=== PATIENT | female | born 1960 | race Caucasian/White ===

== ENCOUNTER → 2017-06-03 17:28 | Outpatient (CLI) | payer MEDICARE, BC, SELFPAY ==
[2017-06-03 18:24] LABS: Basophils # 0.1 K/mm3 (0-0.2); Eosinophils # 0.1 K/mm3 (0.0-0.4); Eosinophils % 1.6 % (0.1-12.0); Hematocrit 44.5 % (37.0-47.0); Hemoglobin 14.7 g/dL (12.2-16.2); Lymphocytes # 1.9 K/mm3 (0.7-4.5); Lymphocytes % 27.1 K/mm3 (10-50); Mean Corpuscular Hemoglobin 31.2 pg (27.0-31.2); Mean Corpuscular Volume 94.3 fl (81-99); Monocytes # 0.5 K/mm3 (0.1-1.0); Monocytes % 6.7 % (1.7-9.3); Neutrophils # 4.5 K/mm3 (1.8-7.8); Neutrophils % 63.6 % (37.0-80.0); Platelet Count 219 K/mm3 (142-424); Red Blood Count 4.72 M/mm3 (4.20-5.40); Red Cell Distribution Width 13.3 % (11.5-17.5); White Blood Count 7.1 K/mm3 (4.8-10.8)
[2017-06-03 19:53] LABS: Alanine Aminotransferase 22 U/L (12-78); Albumin Level 3.1 gm/dL (3.4-5.0); Albumin/Globulin Ratio 0.9 (1.1-1.8); Alkaline Phosphatase 116 U/L (46-116); Anion Gap 11.4 mEq/L (5-15); Aspartate Amino Transferase 18 U/L (15-37); Bilirubin,Total 0.2 mg/dL (0.2-1.0); Blood Urea Nitrogen 12 mg/dL (7-18); Calcium 8.9 mg/dL (8.5-10.1); Carbon Dioxide 32 mmol/L (21.0-32.0); Chloride 103 mmol/L (98-107); Creatinine,Serum 0.88 mg/dL (0.55-1.02); Estimated Glomerular Filt Rate 66 ml/min (>60); GFR (African American) 80 ML/MIN (>60); Globulin 3.6 gm/dl (1.3-3.2); Glucose 123 mg/dL (74-106); Potassium 4.4 mmoL/L (3.5-5.1); Sodium 142 mmol/L (136-145); Thyroid Stimulating Hormone 2.45 uIU/ml (0.358-3.740); Total Protein,Serum 6.7 gm/dL (6.4-8.2)
[2017-06-07 12:39] LABS: Folate 14.4 ng/mL (>3.0); Vitamin B12 374 pg/mL (232-1245)
== END ==
PROVIDERS: Visit Provider Nurse Practitioner Family
DX: G44.329 Chronic post-traumatic headache, not intractable (principal); F39 Unspecified mood [affective] disorder; S06.0X0S Concussion without loss of consciousness, sequela; I48.91 Unspecified atrial fibrillation; Z95.0 Presence of cardiac pacemaker
CPT/HCPCS: 36415; 80053; 82607; 82746; 84443; 85025

== ENCOUNTER → 2017-08-30 14:24 | Outpatient (CLI) | payer MEDICARE, BC, SELFPAY ==
--- NOTE | 2017-08-30 14:25 | CA_ITS ---
PROCEDURE: 2-D M-mode and color Doppler study INDICATIONS FOR THE TEST: Chest pain COPD Heart Murmur Tobacco Smoking Palpitations Fatigue Syncope EdemaX HypertensionXDiabetes Mellitus Rheumatic Fever SOB BLANCO ObesityXHyperlipidemiaX Family History HD Additional History PACEMAKER,CHRONIC AF PATIENT INFORMATION HEIGHT: 62 WEIGHT:201 GENDER: Female B/P:95/59 2-D/M-MODE INTERPRETATION: 2-D MEASUREMENTS OBSERVED VALUES IN CMS Right Ventricular Dimension (RVDd) 2.3 Interventricular Septum (Thickness)(IVsd) 1.0 Left Ventricular Internal Dimensions(LVIDd) 4.8 Left Ventricular Posterior Wall (Thickness)(LVPWd) .8 Aortic Root 3.0 Aortic Cusp Separation 1.6 Left Atrial Dimensions (LAD) 3.9 2D 1. Left atrium is moderately enlarged, left ventricle is normal size, visually estimated ejection fraction 55% with no obvious regional wall motion abnormality. 2. The right atrium and right ventricle are mildly enlarged with normal contractility, there is pacemaker lead seen in the right atrium and right ventricle. 3. The aortic valve is minimally thickened and fibrosed. 4. The mitral and tricuspid valve leaflets are minimally thickened. 5. The pulmonic valve is poorly visualized. 6. No significant pericardial effusion noted. DOPPLER INTERROGATION: Doppler interrogation of the aortic, mitral and tricuspid valvular presence of moderate mitral and mild tricuspid regurgitation. Tricuspid regurgitant jet velocity is insufficient for the right ventricular systolic pressure, diastolic parameters are inconclusive. CONCLUSION: 1. Moderately enlarged left atrium, normal left ventricular size, visually estimated ejection fraction of 55% with no obvious regional wall motion abnormality, diastolic parameters are inconclusive. 2. Moderate mitral and mild tricuspid regurgitation 3. No significant pericardial effusion noted.
== END ==
PROVIDERS: PCP Emergency Medicine; Visit Provider Internal Medicine
DX: I48.91 Unspecified atrial fibrillation (principal); R00.0 Tachycardia, unspecified; I10 Essential (primary) hypertension; I25.10 Atherosclerotic heart disease of native coronary artery without angina pectoris
CPT/HCPCS: 93306

== ENCOUNTER 2017-12-29 22:07 | Inpatient (IN) ==
[2017-12-29 22:26] LABS: Microscopic, Urine URINE MICROSCOPIC (MICROSCOPIC)
[2017-12-29 22:31] LABS: Basophils # 0.1 K/mm3 (0-0.2); Basophils % 0.8 % (0.1-2.0); Eosinophils % 0.6 % (0.1-12.0); Hemoglobin 14.3 g/dL (12.2-16.2); Lymphocytes # 1.7 K/mm3 (0.7-4.5); Lymphocytes % 23.3 % (10-50); Mean Corpuscular Hemoglobin 29.6 pg (27.0-31.2); Mean Corpuscular Volume 95.3 fl (81-99); Mean Platelet Volume 8.7 fl (7.4-10.4); Monocytes # 0.6 K/mm3 (0.1-1.0); Monocytes % 8.4 % (1.7-9.3); Neutrophils # 4.8 K/mm3 (1.8-7.8); Neutrophils % 66.9 % (37.0-80.0); Platelet Count 215 K/mm3 (142-424); Red Blood Count 4.82 M/mm3 (4.20-5.40); Red Cell Distribution Width 14.7 % (11.5-17.5); White Blood Count 7.2 K/mm3 (4.8-10.8)
[2017-12-29 22:47] LABS: Alanine Aminotransferase 10 U/L (12-78); Albumin Level 2.6 gm/dL (3.4-5.0); Albumin/Globulin Ratio 0.6 (1.1-1.8); Alkaline Phosphatase 116 U/L (46-116); Anion Gap 8.7 mEq/L (5-15); Aspartate Amino Transferase 6 U/L (15-37); Bilirubin,Total 0.5 mg/dL (0.2-1.0); Blood Urea Nitrogen 12 mg/dL (7-18); Calcium 8.7 mg/dL (8.5-10.1); Carbon Dioxide 34 mmol/L (21.0-32.0); Chloride 81 mmol/L (98-107); Globulin 4.3 gm/dl (1.3-3.2); Sodium 121 mmol/L (136-145); Total Protein,Serum 6.9 gm/dL (6.4-8.2)
[2017-12-29 22:53] LABS: Appearance,Urine CLEAR (Clear); Bilirubin,Urine Negative (Negative); Blood, Urine Negative (Negative); Color,Urine YELLOW (Yellow); Glucose,Urine (UA) 3+ (Negative); Ketones,Urine Negative (Negative); Leukocyte Esterase,Urine Negative (Negative); Protein,Urine Negative (Negative); Specific Gravity, Urine <= 1.005 (1.005-1.030); Urobilinogen,Urine 0.2 EU/dl (0.2)
[2017-12-29 22:55] LABS: Bacteria,Urine 2+ /lpf
[2017-12-29 23:07] LABS: Glucose 873 mg/dL (74-106); Potassium 2.7 mmoL/L (3.5-5.1)
[2017-12-29 23:13] LABS: Acetone, Serum (Rapid) None Detected (None Detect)
--- NOTE | 2017-12-29 23:28 | Emergency Department Note ---
ED Disposition Clinical Impression: Hyperglycemia, Hypokalemia Hypotension Qualifiers: Hypotension type: unspecified hypotension type Qualified Code(s): I95.9 - Hypotension, unspecified Disposition: Still a Patient Condition on Discharge: Serious - Critical Care Critical Care Time: Yes Attestation: On 12/29/17, the high probability of a clinically significant, sudden or life threatening deterioration of the following system(s) required my full and direct attention, intervention and personal management. The time I documented below is in addition to time spent performing reported procedures but includes the following listed in this critical care notation. Total Critical Care Time: 40 Vital system(s) involved:: Circulatory Failure, Metabolic Failure My critical care processes included: Assessment & monitoring of V/S, Initial and Re-exams, Data Review/Interpretation, Coordinating Care, Medication Orders and management, Documentation Medical Decision Making - Moody Inquiry Pt receiving controlled substance: No Vital Signs: 12/29/17 22:08 12/29/17 22:34 12/29/17 23:19 Temperature 99.5 F Temperature Source Oral Pulse Rate [Right Radial] 68 80 80 Respiratory Rate 12 16 22 Blood Pressure [Right Arm] 90/59 L 85/52 L 106/70 L Blood Pressure Mean [Right Arm] 69 63 82 Blood Pressure Source [Right Arm] Automatic Cuff Automatic Cuff Automatic Cuff Blood Pressure Position [Right Arm] Sitting Sitting Sitting 02 Sat by Pulse Oximetry 95 98 97 Oxygen Delivery Method Room Air Room Air - Lab Data Lab Results 12/29/17 22:20: Urine Color Yellow, Urine Appearance Clear, Urine pH 7.0, Ur Specific [place] <= 1.005, Urine Protein Negative, Urine Glucose (UA) 3+, Urine Ketones Negative, Urine Blood Negative, Urine Nitrate Positive, Urine Bilirubin Negative, Urine Urobilinogen 0.2, Ur Leukocyte Esterase Negative, Urine WBC 3-5, Urine Bacteria 2+ 12/29/17 22:20: WBC 7.2, RBC 4.82, Hgb 14.3, Hct 46.0, MCV 95.3, MCH 29.6, MCHC 31.0 L, RDW 14.7, Plt Count 215, MPV 8.7, Neut % (Auto) 66.9, Lymph % (Auto) 23.3, [place] % (Auto) 8.4, Eos % (Auto) 0.6, Baso % (Auto) 0.8, Neut # (Auto) 4.8, Lymph # (Auto) 1.7, [place] # (Auto) 0.6, Eos # (Auto) 0.0, Baso # (Auto) 0.1 12/29/17 22:20: Sodium 121 L, Potassium 2.7 L*, Chloride 81 L, Carbon Dioxide 34 H, Anion Gap 8.7, BUN 12, Creatinine 1.50 H, Estimated Creat Clear 50, Estimated GFR 36 L, Est GFR ( Amer) 43 L, Glucose 873 H*, Calcium 8.7, Total Bilirubin 0.5, AST 6 L, ALT 10 L, Alkaline Phosphatase 116, Total Protein 6.9, Albumin 2.6 L, Globulin 4.3 H, Albumin/Globulin Ratio 0.6 L, Acetone Level None detected 12/30/17 00:08: VBG pH 7.40, VBG pCO2 56.0 H, VBG pO2 67.1 H, VBG HCO3 33.8 H, VBG Total CO2 35.5 H, VBG O2 Saturation 93.8 H, VBG Base Excess 8.9 H Result diagrams: 12/29/17 22:20 12/29/17 22:20 Orders (Tests/Meds): ED MEDICATIONS Generic Name Dose Route Start Last Admin Trade Name Freq PRN Reason Stop Dose Admin Sodium Chloride 1,000 mls @ 150 mls/hr 12/30/17 00:45 Sod Chlor 0.9% 1000ml Bag IV 01/29/18 00:44 .[id number] MARIXA Potassium Chloride/Water 100 mls @ 50 mls/hr 12/30/17 00:54 12/30/17 01:00 Potassium Chloride 20meq/100ml Ivpb IV 12/30/17 02:53 50 mls/hr ONCE ONE Administration Potassium Chloride/Water 20 meq 12/30/17 00:33 Potassium Chloride 20meq/100ml Ivpb IV 12/30/17 00:34 ONCE ONE Discontinued Medications Generic Name Dose Route Start Last Admin Trade Name Freq PRN Reason Stop Dose Admin Sodium Chloride 1,000 mls @ 999 mls/hr 12/29/17 22:30 12/29/17 22:52 Sod Chlor 0.9% 1000ml Bag IV 12/29/17 23:30 999 mls/hr .Q1H1M MARIXA Administration Insulin Human Lispro 20 unit 12/30/17 00:32 12/30/17 00:51 Humalog 100 Units/Ml 3ml Vial (Ssi) SQ 12/30/17 00:33 20 unit ONCE ONE Administration Potassium Chloride 60 meq 12/30/17 00:33 12/30/17 00:52 Klor-Con 20meq Tablet PO 12/30/17 00:34 60 meq ONCE ONE Administration ORDERS Category Date Time Status Urinalysis and Microscopic Stat Lab 12/29/17 22:20 Ordered Urine Culture Stat Micro 12/29/17 22:20 Received 12-lead EKG Request [ECG Request by /Nse] Stat Y 12/29/17 22:23 Ordered - ECG Data Tracing #1 EKG interpreted by Robert Sanchez MD: Rhythm: Ventricular paced rhythm Rate: 80 No evidence of acute ischemia or injury - Physician Consults Physician Consulted: Barry Bueno Time: 23:45 Reason -: Admission Comment/Response: Agrees to admit the patient to the hospital. We discussed the patient's clinical information, including history, exam, laboratory and radiology results and ED course. Per hospital procedure, I will write temporary bridge inpatient orders on the patient. Specific orders requested by the admitting physician: IV and oral potassium, high intensity sliding scale insulin, first dose in the emergency department 20 units of Humalog, continue IV fluids. May start insulin now, before potassium corrected, because the insulin will be administered subcutaneously and not intravenously. Fingerstick blood sugar in 2 hours. Chemistry profile in the morning. General Adult HPI - General Chief complaint: Hyper/Hypoglycemia Stated complaint: dizziness Time Seen by Provider: 12/29/17 23:28 Mode of Arrival: EMS Limitations: Physical Limitations Description of Symptoms (Recalled from ER Triage Doc. by RN): Pt reports dizziness all day, n/v yesterday. Per EMS blood glucose reading HI on glucomete. No physical deficits. Pt. ambulated to bathroom with assist. Pt. reports she felt dizzy earlier today but has not complaints at this time. - History of Present Illness HPI narrative: Sent in by ambulance from [facility] for hyperglycemia. - Related Data Home Medications Medication Instructions Recorded Confirmed apixaban 5 mg tablet 5 mg PO BID 02/18/17 12/29/17 digoxin 125 mcg tablet 125 mcg PO DAILY 02/18/17 12/29/17 duloxetine 60 mg capsule,delayed 60 mg PO DAILY 02/18/17 12/29/17 release loratadine 10 mg tablet 10 mg PO DAILY 02/18/17 12/29/17 spironolactone 25 mg tablet 25 mg PO BID 02/18/17 12/29/17 acetaminophen 500 mg tablet 500 mg PO Q4H PRN 02/19/17 12/29/17 furosemide 20 mg tablet 40 mg PO BID tab 02/19/17 12/29/17 metoprolol tartrate 100 mg tablet 200 mg PO BID tab 02/19/17 12/29/17 Nortriptyline HCl 10 mg PO DAILY 06/20/17 12/29/17 diltiazem CD 240 mg 240 mg PO DAILY 10/30/17 12/29/17 capsule,extended release 24 hr Cefdinir [Omnicef 300mg Capsule] 300 mg PO BID 12/29/17 12/29/17 Allergies Allergy/AdvReac Type Severity Reaction Status Date / Time celecoxib [From CELEBREX] Allergy Unknown Verified 12/29/17 22:15 hydrocodone [From VICODIN] Allergy Unknown Verified 12/29/17 22:15 oxycodone [OXYCODONE] Allergy Unknown Verified 12/29/17 22:15 red dye Allergy Unknown Verified 12/29/17 22:15 [From RED DYE (FOOD/DRUG)] tramadol [From ULTRAM] Allergy Unknown Verified 12/29/17 22:15 Iodinated Contrast Media - AdvReac Intermediate ITCHING Verified 12/29/17 22:15 Oral and [IODINATED CONTRAST MEDIA - ORAL AND] From RED DYE (FOOD/DRUG) Allergy Unknown Uncoded 06/03/17 15:27 [facility] History Medical History: Reports:: Atrial Fibrillation, Coronary Artery Disease, Hyperlipidemia, Hypertension, Internal Pacemaker, Migraine Denies:: Cancer, Diabetes Mellitus Type 1, Diabetes Mellitus Type 2, MRSA Other Surgeries: Yes: No Previous Surgery, Pacemaker Amputation: No Comment: knee, ankle - Social History Smoking Status: Never smoker Alcohol Intake: never Alcohol Intake Frequency:: other Substance Use Type: denies use Occupational Status: disabled Housing: assisted living facility Household Members: other - Psychiatric History Expresses thoughts of harming self/others: None Suicide Plan Description: No Plan Family Hx:: No significant family history ROS Obtained: Yes All systems reviewed & no additional complaints - Constitutional Constitutional: Denies fever(s), Reports other (Increased thirst) - ENT Ears, Nose, Mouth, and Throat: Reports dry mouth - Cardiovascular Cardiovascular: Denies chest pain - Respiratory Respiratory: No cough, No dyspnea - Gastrointestinal Gastrointestingal: Denies: abdominal pain, diarrhea, vomiting - Genitourinary Female Genitourinary: Reports urinary frequency - Neurologic Neurologic: Denies headache(s) Physical Exam - General General appearance: alert, in no apparent distress - Head Head exam: atraumatic, normocephalic - Eye Eye exam: Present: normal appearance, PERRL, EOMI - ENT ENT exam: Present: mucous membranes dry - Chest Chest inspection: Present: normal inspection, symmetric chest wall rise - Respiratory Respiratory exam: Present: normal lung sounds bilaterally. Absent: respiratory distress - Cardiovascular Cardiovascular exam: Present: regular rate, normal rhythm, normal heart sounds - Abdominal Exam Abdominal exam: Present: soft. Absent: distention, tenderness, guarding - Extremities Exam Extremities exam: Present: normal inspection - Neurological Exam Neurological exam: Present: alert, oriented X3 - Psychiatric Psychiatric exam: Present: normal affect, normal mood - Skin Skin exam: Present: warm, dry
[2017-12-30 00:09] LABS: VBG Base Excess 8.9 mmol/L (-2.4-2.3); VBG HCO3 33.8 mmol/L (23-30); VBG Oxygen Saturation 93.8 % (50-70); VBG PH 7.4 mmol/L (7.31-7.41); VBG PO2 67.1 mmol/L (28-40); VBG Total CO2 35.5 mmol/L (23-27)
[2017-12-30 06:06] LABS: Anion Gap 8.7 mEq/L (5-15)
[2017-12-30 06:20] LABS: Potassium 2.7 mmoL/L (3.5-5.1)
--- NOTE | 2017-12-30 07:54 | Pharmacy Consult Notes ---
[facility] Pharm[facility] VTE Monitoring - Patient Demographics Admission date: 12/29/17 Report Date: 12/30/17 Time: 07:54 Allergies/Adverse Reactions: Patient Allergies celecoxib [From CELEBREX] Allergy (Unknown, Verified 12/29/17 22:15) hydrocodone [From VICODIN] Allergy (Unknown, Verified 12/29/17 22:15) oxycodone [OXYCODONE] Allergy (Unknown, Verified 12/29/17 22:15) red dye [From RED DYE (FOOD/DRUG)] Allergy (Unknown, Verified 12/29/17 22:15) tramadol [From ULTRAM] Allergy (Unknown, Verified 12/29/17 22:15) Iodinated Contrast Media - Oral and [IODINATED CONTRAST MEDIA - ORAL AND] Adverse Reaction (Intermediate, Verified 12/29/17 22:15) ITCHING From RED DYE (FOOD/DRUG) Allergy (Unknown, Uncoded 06/03/17 15:27) Height: 1.57 m Weight: 81.737 kg Patient Problems: Current Active Problems Hyperglycemia (Acute) Hypokalemia (Acute) Hypotension (Acute) - VTE Risk Labs: VTE Related Lab Results Hgb 14.3 g/dL (12.2-16.2) 12/29/17 22:20 Hct 46.0 % (37.0-47.0) 12/29/17 22:20 Plt Count 215 K/mm3 (142-424) 12/29/17 22:20 BUN 10 mg/dL (7-18) 12/30/17 05:50 Creatinine 0.99 mg/dL (0.55-1.02) D 12/30/17 05:50 Estimated Creat Clear 81 mL/min (50-200) 12/30/17 05:50 VTE Score: 6 VTE Risk Level: Moderate Risk - Prophylaxis VTE Prophylaxis Ordered?: Yes Types of VTE Prophylaxis: TEDS Knee High, Pharmacological Location of Applied Device: Bilateral Lower Extremeties Pharmacologic Type: Other (ELIQUIS ORDERED) - VTE Diagnosis Confirmed Treatment or plan recommended: Continue Current Treatment
--- NOTE | 2017-12-30 13:21 | History & Physical Report ---
*Admission Date: 12/29/17 *Chief complaint: dizzy *History of present illness: this wf who reports not feeling well and dizzy at [facility] was seen in the ed -t reports dizziness all day, n/v yesterday. Per EMS blood glucose reading HI on glucometer No physical deficits. Pt. ambulated to bathroom with assist. Pt. reports she felt dizzy earlier today but has not complaints at this time. [facility] History I have reviewed the patient's past medical history: Yes Medical History: Reports:: Atrial Fibrillation, Coronary Artery Disease, Hyperlipidemia, Hypertension, Internal Pacemaker, Migraine Denies:: Cancer, Diabetes Mellitus Type 1, Diabetes Mellitus Type 2, MRSA Other Surgeries: Yes: No Previous Surgery, Pacemaker Amputation: No - *Social History Smoking Status: Never smoker Alcohol Intake: never Alcohol Intake Frequency:: other Substance Use Type: denies use Occupational Status: disabled Housing: assisted living facility Household Members: other - Psychiatric History Expresses thoughts of harming self/others: None Suicide Plan Description: No Plan *Family Hx:: No significant family history Review of Systems - Review of Systems Review of systems:: pertinent systems reviewed and negative unless documented below - Constitutional Denies fatigue - Eyes Denies bulging eyes - ENT Denies sore throat - *Cardiovascular Denies chest pain - *Respiratory Denies cough - *Gastrointestinal Denies abdominal pain - *Musculoskeletal Reports joint pain, Denies joint swelling - Integumentary/Breasts Denies rash - *Neurologic Reports dizziness, Reports weakness, Denies headache(s), Denies seizure-like activity - Psychiatric Reports anxiety Meds Home Medications Medication Instructions Recorded Confirmed Type apixaban 5 mg tablet 5 mg PO BID 02/18/17 12/29/17 History digoxin 125 mcg tablet 125 mcg PO DAILY 02/18/17 12/29/17 History loratadine 10 mg tablet 10 mg PO DAILY 02/18/17 12/29/17 History acetaminophen 500 mg tablet 500 mg PO Q4H PRN 02/19/17 12/29/17 History Nortriptyline HCl 10 mg PO DAILY 06/20/17 12/29/17 History diltiazem CD 240 mg 240 mg PO DAILY 10/30/17 12/29/17 History capsule,extended release 24 hr Duloxetine HCl [Cymbalta 30mg 60 mg PO DAILY 12/30/17 12/30/17 History capsule] Furosemide [Furosemide 40MG tAB] 40 mg PO BID 12/30/17 12/30/17 History Metoprolol Tartrate 200 mg PO BID 12/30/17 12/30/17 History Spironolactone 25 mg PO DAILY 12/30/17 12/30/17 History Allergies Allergy/AdvReac Type Severity Reaction Status Date / Time celecoxib [From CELEBREX] Allergy Unknown Verified 12/29/17 22:15 hydrocodone [From VICODIN] Allergy Unknown Verified 12/29/17 22:15 oxycodone [OXYCODONE] Allergy Unknown Verified 12/29/17 22:15 red dye Allergy Unknown Verified 12/29/17 22:15 [From RED DYE (FOOD/DRUG)] tramadol [From ULTRAM] Allergy Unknown Verified 12/29/17 22:15 Iodinated Contrast Media - AdvReac Intermediate ITCHING Verified 12/29/17 22:15 Oral and [IODINATED CONTRAST MEDIA - ORAL AND] From RED DYE (FOOD/DRUG) Allergy Unknown Uncoded 06/03/17 15:27 Exam Vital signs and Labs for Last 24 Hours: Temp Pulse Resp BP Pulse Ox 98.0 F 80 17 103/66 L 98 12/30/17 08:00 12/30/17 10:54 12/30/17 08:00 12/30/17 08:00 12/30/17 08:00 Laboratory Results - last 24 hr 12/29/17 22:14: POC Glucose > 600 H* 12/29/17 22:20: Urine Color Yellow, Urine Appearance Clear, Urine pH 7.0, Ur Specific [place] <= 1.005, Urine Protein Negative, Urine Glucose (UA) 3+, Urine Ketones Negative, Urine Blood Negative, Urine Nitrate Positive, Urine Bilirubin Negative, Urine Urobilinogen 0.2, Ur Leukocyte Esterase Negative, Urine WBC 3-5, Urine Bacteria 2+ 12/29/17 22:20: WBC 7.2, RBC 4.82, Hgb 14.3, Hct 46.0, MCV 95.3, MCH 29.6, MCHC 31.0 L, RDW 14.7, Plt Count 215, MPV 8.7, Neut % (Auto) 66.9, Lymph % (Auto) 23.3, [place] % (Auto) 8.4, Eos % (Auto) 0.6, Baso % (Auto) 0.8, Neut # (Auto) 4.8, Lymph # (Auto) 1.7, [place] # (Auto) 0.6, Eos # (Auto) 0.0, Baso # (Auto) 0.1 12/29/17 22:20: Sodium 121 L, Potassium 2.7 L*, Chloride 81 L, Carbon Dioxide 34 H, Anion Gap 8.7, BUN 12, Creatinine 1.50 H, Estimated Creat Clear 50, Estimated GFR 36 L, Est GFR ( Amer) 43 L, Glucose 873 H*, Calcium 8.7, Total Bilirubin 0.5, AST 6 L, ALT 10 L, Alkaline Phosphatase 116, Total Protein 6.9, Albumin 2.6 L, Globulin 4.3 H, Albumin/Globulin Ratio 0.6 L, Acetone Level None detected 12/30/17 00:08: VBG pH 7.40, VBG pCO2 56.0 H, VBG pO2 67.1 H, VBG HCO3 33.8 H, VBG Total CO2 35.5 H, VBG O2 Saturation 93.8 H, VBG Base Excess 8.9 H 12/30/17 01:35: Lactate 2.2 H 12/30/17 01:38: POC Glucose 493 H* 12/30/17 04:04: POC Glucose 181 H 12/30/17 05:50: Sodium 136, Potassium 2.7 L*, Chloride 97 L, Carbon Dioxide 33 H , Anion Gap 8.7, BUN 10, Creatinine 0.99 D, Estimated Creat Clear 81, Estimated GFR 58 L, Est GFR ( Amer) 70 D, Glucose 147 H D, Calcium 8.0 L 12/30/17 05:50: Lactate 2.3 H 12/30/17 06:11: POC Glucose 132 H 12/30/17 07:46: Lactate 1.5 I & O for Last 24 hours: Intake & Output 12/28/17 12/29/17 12/30/17 12/31/17 11:59 11:59 11:59 11:59 Intake Total 679 / 679 240 / 240 Output Total 600 / 600 Balance 79 / 79 240 / 240 Weight 180 lb 3.2 oz Microbiology Reports for the Last 24 Hours: Microbiology 12/29/17 22:20 Urine,Clean Catch Urine Culture - Preliminary Gram Negative Rods - Constitutional no acute distress - *Routine HEENT Exam Head: Present: normocephalic, scalp tenderness Eye: Present: PERRL ENT: Present: mucous membranes dry - *Routine Neck Exam Absent: JVD - *Routine Respiratory Exam Present: CTA bilaterally - *Routine Cardiovascular Exam Present: RRR, murmur, S4 - *Routine Abdominal Exam Present: soft - *Routine Extremities Exam Present: edema. Absent: calf tenderness - *Routine Skin Exam Present: intact - *Routine Neurological Exam Present: alert, oriented X3, CN II-XII intact - Routine Psychiatric Exam Present: normal affect Assessment and Plan (1) UTI (urinary tract infection) Current visit: Yes Status: Acute Category: Medical Code(s): N39.0 - Urinary tract infection, site not specified (2) Hypokalemia Current visit: Yes Status: Acute Category: Medical Code(s): E87.6 - Hypokalemia
--- NOTE | 2017-12-31 09:12 | Discharge Summary ---
Addendum entered and electronically signed by Heydi Scott APRN 12/31/17 09:27: recheck bmp on saturday Original Note: General - General Admission date:: 12/30/17 Discharge date: 12/31/17 HPI HPI: this wf who reports not feeling well and [facility] at shelter was seen in the ed -t reports dizziness all day, n/v yesterday. Per EMS blood glucose reading HI on glucometer No physical deficits. Pt. ambulated to bathroom with assist. Pt. reports she felt dizzy earlier today but has not complaints at this time. Hospital Course Hospital Course: chest x ray:IMPRESSION: Nothing definitely acute. No significant change since 06/20/2017. Pacemaker. ESBL positive E coli in urine We will discharge back to the personal residential today with IM Invanz times 9 days recheck potassium in 2 days [facility] for IM Invanz. Will check hemoglobin A1c while at personal residential. Objective Vital signs: Temp Pulse Resp BP Pulse Ox 97.4 F L 88 16 101/54 L 97 12/31/17 08:49 12/31/17 08:49 12/31/17 08:49 12/31/17 08:49 12/31/17 08:49 no acute distress - *Routine HEENT Exam Head: Present: normocephalic Eye: Present: PERRL ENT: Present: mucous membranes moist - *Routine Neck Exam Present: full ROM - *Routine Respiratory Exam Present: CTA bilaterally - *Routine Cardiovascular Exam Present: irregular rhythm - *Routine Abdominal Exam Present: soft, normoactive bowel sounds - *Routine Extremities Exam Present: full ROM - *Routine Skin Exam Present: intact - *Routine Neurological Exam Present: alert, oriented X3 - Routine Psychiatric Exam Present: normal affect, normal thought process Results Labs on day of discharge: Labs from last 24 hours 12/31/17 12/30/17 12/30/17 05:18 21:19 17:23 POC Glucose 243 H 339 H* 300 H 12/29/17 22:14 POC Glucose > 600 H* - Additional Comments Rounded with Dr. Bueno all orders per Ximena Increase fluids, water and not soda or tea. Can drink cranberry juice or cranberry extract. White front to back Wear cotton underwear Start antibiotics immediately and make sure you take the full course although you may start to see improvement over the next 48 hours. You can eat yogurt or Be sure to follow-up anytime for new or worsening symptoms DS: Diagnosis - Discharge Diagnosis (1) UTI (urinary tract infection) Status: Acute (2) Hypokalemia Status: Acute (3) Infection due to ESBL-producing Escherichia coli Status: Acute Discharge Plan - Patient Discharge Instructions ACTIVITY: Continue current activity DIET: continue same diet - Follow up Plan Follow up with: Didier Bueno MD [Primary Care Provider] - 1 week Disposition: Home, Self-[facility] Medications: Home Medications Medication Instructions Recorded Confirmed Type apixaban 5 mg tablet 5 mg PO BID 02/18/17 12/29/17 History digoxin 125 mcg tablet 125 mcg PO DAILY 02/18/17 12/29/17 History loratadine 10 mg tablet 10 mg PO DAILY 02/18/17 12/29/17 History acetaminophen 500 mg tablet 500 mg PO Q4H PRN 02/19/17 12/29/17 History Nortriptyline HCl 10 mg PO DAILY 06/20/17 12/29/17 History diltiazem CD 240 mg 240 mg PO DAILY 10/30/17 12/29/17 History capsule,extended release 24 hr Duloxetine HCl [Cymbalta 30mg 60 mg PO DAILY 12/30/17 12/30/17 History capsule] Furosemide [Furosemide 40MG tAB] 40 mg PO BID 12/30/17 12/30/17 History Metoprolol Tartrate 200 mg PO BID 12/30/17 12/30/17 History Spironolactone 25 mg PO DAILY 12/30/17 12/30/17 History Prescriptions/Medication Reconciliation: New Ertapenem Sodium [Invanz 1gm Vial] 1 gm IJ DAILY 9 Days #9 vial Continue digoxin 125 mcg tablet 125 mcg PO DAILY apixaban 5 mg tablet 5 mg PO BID loratadine 10 mg tablet 10 mg PO DAILY acetaminophen 500 mg tablet 500 mg PO Q4H PRN PRN Reason: pain diltiazem CD 240 mg capsule,extended release 24 hr 240 mg PO DAILY Spironolactone 25 mg PO DAILY Metoprolol Tartrate 200 mg PO BID Furosemide [Furosemide 40MG tAB] 40 mg PO BID Duloxetine HCl [Cymbalta 30mg capsule] 60 mg PO DAILY Nortriptyline HCl 10 mg PO DAILY
[2017-12-31 09:15] LABS: Basophils # 0.1 K/mm3 (0-0.2); Basophils % 0.8 % (0.1-2.0); Eosinophils # 0.1 K/mm3 (0.0-0.4); Eosinophils % 1.6 % (0.1-12.0); Hematocrit 39.3 % (37.0-47.0); Hemoglobin 12.6 g/dL (12.2-16.2); Lymphocytes # 1.9 K/mm3 (0.7-4.5); Lymphocytes % 27.3 % (10-50); Mean Corpuscular Hemoglobin 29.6 pg (27.0-31.2); Mean Corpuscular Volume 92.5 fl (81-99); Monocytes # 0.5 K/mm3 (0.1-1.0); Monocytes % 6.6 % (1.7-9.3); Neutrophils # 4.5 K/mm3 (1.8-7.8); Neutrophils % 63.8 % (37.0-80.0); Platelet Count 188 K/mm3 (142-424); Red Blood Count 4.24 M/mm3 (4.20-5.40); Red Cell Distribution Width 15.3 % (11.5-17.5); White Blood Count 7.1 K/mm3 (4.8-10.8)
[2017-12-31 09:17] LABS: Anion Gap 8.9 mEq/L (5-15); Calcium 7.7 mg/dL (8.5-10.1)
[2017-12-31 09:19] LABS: Potassium 2.9 mmoL/L (3.5-5.1)
== END 2017-12-31 14:57 | disposition home or self-care (01) ==
LOC: ICU 22:07 → ER 22:07 → OBSVTOIN 12-30 01:20 → ICU 12-30 01:22
PROVIDERS: ADMIT Family Medicine; ATTEND Emergency Medicine

== ENCOUNTER → 2018-08-04 09:55 | Outpatient (CLI) | payer MEDICARE, BC, SELFPAY ==
--- NOTE | 2018-08-04 09:56 | US_ITS ---
US gallbladder HISTORY: ITS.REASON: gallstones ORDERING PHYSICIAN: Juaquin Perkins MD PATIENT AGE: 58 years Comparison: None FINDINGS: Visualized portions of the pancreas and IVC appear normal. Portal vein is patent., Common bile duct is normal measuring 3.7 mm. PANCREAS: Unremarkable. No obvious mass or abnormal fluid collection. No ductal dilatation LIVER: No focal liver lesions demonstrated. Homogeneous echogenicity. No intrahepatic biliary ductal dilatation evident RIGHT KIDNEY: Unremarkable. Normal size and echogenicity. No hydronephrosis GALLBLADDER: There are numerous shadowing echogenic foci in the lumen of the gallbladder. One of the larger foci measures at least 1.9 cm. There is no pericholecystic fluid. IMPRESSION: Uncomplicated cholelithiasis.
== END ==
PROVIDERS: PCP Emergency Medicine; Visit Provider Surgery
DX: K82.9 Disease of gallbladder, unspecified (principal)
CPT/HCPCS: 76705

== ENCOUNTER → 2018-10-27 14:19 | Outpatient (CLI) | payer MEDICARE, BC, SELFPAY ==
--- NOTE | 2018-10-27 14:27 | XR_ITS ---
PROCEDURE: XR KNEE RT 4V CLINICAL INDICATION: 4 v weightbearing Pain, right knee pain COMPARISON: No exams were available for comparison FINDINGS: Severe osteoarthritic changes are present involving all 3 compartments with loss of joint space, osteosclerosis, and osteophyte formation. This is worse at the lateral compartment and patellofemoral joint. There Alisa a large osteophyte projecting off of the posterior aspect of the medial femoral condyle. This could even be related to large osteo chondroma. This measures approximately 3.8 cm AP and 4 cm cephalad caudad. IMPRESSION: Severe osteoarthritis worse at the lateral compartment and patellofemoral joint. Large osteophyte versus osteo chondroma at the posterior aspect of the medial femoral condyle Dictated by: Emiliano Medellin MD 10/27/2018 15:41 Electronically signed by Emiliano Medellin MD in [place] 10/27/2018 15:41
== END ==
PROVIDERS: PCP Emergency Medicine; Visit Provider Orthopaedic Surgery
DX: M25.561 Pain in right knee (principal)
CPT/HCPCS: 73564

== ENCOUNTER → 2018-10-31 11:20 | Outpatient (CLI) | payer MEDICARE, BC, SELFPAY ==
--- NOTE | 2018-10-31 11:21 | CA_ITS ---
APPROVED REPORT EXAM: Comprehensive 2D, Doppler, and color-flow Echocardiogram Principal Architect: Adrianna Ortiz RVT Ht: 5 ft 2 in Wt: 193lbs BSA: 1.88 BP: 100/67 mmHg Indications: Shortness of Breath, Atrial Fibrillation (chronic), CAD, Hyperlipidemia, Hypertension/HDD,Pre-op clearance 2D Dimensions IVSd 0.70 cm F: 0.6-1.0 LVEF (Visual) 52.90 % PWd 1.00 cm F: 0.6 - 1.0 LVDd 4.80 cm F: 3.9 - 5.3 LVDs 3.50 cm F: 2.2 - 3.5 LVOT 1.80 cm (M/F) 1.5-2.5 M-Mode Dimensions LA Diam 4.80 cm (1.9-4.0) LVDd 5.30 cm (3.5-5.7) Ao Diam 2.80 cm (2.0-3.7) LVDs 3.70 cm (3.5-5.7) AV Cusp 1.90 cm (1.5-2.6) IVSd 0.60 cm (0.6-1.1) PWd 1.00 cm (0.6-1.1) EF (Teich) 57.00% FS 30.20% EDV (Teich) 135.00 mL ESV (Teich) 58.10 mL LV Diastology E/A Ratio 1.5 MED E' 7.02 (< 7 cm/sec) E'/MED E' Ratio 16.40 (>14) LAT E' 7.21 (<10 cm/sec) E/LAT E' Ratio 16.00 (>14) Aortic Valve AoV Peak Pradip. 111.00 (50-130 cm/s) AI PHT 469.00 ms AO Peak GR. 5.00 mmHg Mitral Valve MV E Max Pradip. 115.00 (40-130 cm/s) MV A Velocity 75.50 (40-130 cm/s) E/A Ratio 1.50 Pulmonary Valve PA Accel Time 141.00 (>120 msec) Tricuspid Valve TR P. Velocity 250.00 cm/s Left Ventricle Left atrium is moderately enlarged, left ventricle is normal size, mild concentric left ventricular hypertrophy, visually estimated ejection fraction 55% with no regional wall motion abnormality, grade 1 diastolic dysfunction seen with tissue Doppler evidence of raise left atrial pressure. Right Ventricle Right atrium and right ventricle mildly enlarged with normal contractility. Aortic Valve Aortic valve is thickened and calcified leaflet continue to display mobility, there is no aortic stenosis, there is mild aortic insufficiency. Mitral Valve Mitral valve leaflets are minimally thickened, there is no mitral stenosis, there is mild mitral regurgitation. Tricuspid Valve Tricuspid valve is grossly normal, there is mild tricuspid regurgitation. Tricuspid regurgitation jet velocity is inadequate for calculation of the right ventricular systolic pressure, inferior vena cava is normal size with normal inspiratory collapse. Pulmonic Valve Pulmonic valve is poorly visualized. Great Vessels Aortic root is normal size. Pericardium No significant pericardial effusion noted. Conclusion 1. Enlarged left atrium, normal left ventricular size, mild concentric left ventricular hypertrophy, visually estimated ejection fraction 55% with no regional wall motion abnormality. Diastolic parameters are inconclusive. 2. Mild aortic, mild mitral and tricuspid regurgitation. 3. No significant pericardial effusion noted. Electronically signed by : Tano Shannon, 10/31/2018 14:31:13
== END ==
PROVIDERS: PCP Emergency Medicine; Visit Provider Urology
DX: Z01.818 Encounter for other preprocedural examination; R07.9 Chest pain, unspecified; E78.5 Hyperlipidemia, unspecified; I11.9 Hypertensive heart disease without heart failure; I25.10 Atherosclerotic heart disease of native coronary artery without angina pectoris; I48.91 Unspecified atrial fibrillation; I48.92 Unspecified atrial flutter; R60.0 Localized edema; Z95.0 Presence of cardiac pacemaker
CPT/HCPCS: 93306

== ENCOUNTER → 2019-01-30 08:55 | Outpatient (CLI) | payer MEDICARE, BC, SELFPAY ==
--- NOTE | 2019-01-30 09:03 | MM_ITS ---
PROCEDURE: MM DIG SCREENING MAMM BI W/CAD CLINICAL INDICATION: screening COMPARISON: MM DIGITAL IMAGE BREAST SPECIMEN from 02/08/2011 MM MAMMO DIGITAL DIAGNOSTIC W CAD BILAT from 08/29/2011 MM MAMMO DIGITAL DIAGNOSTIC W CAD BILAT from 09/10/2012 TECHNIQUE: Standard CC and MLO images were obtained. R2 CAD reviewed. FINDINGS: The breasts are composed primarily of fat with minimal scattered fibroglandular densities throughout each breast. There has been some fatty involution of the breast since the previous studies in 2012. There is minimal arterial calcification right breast. There is no suspicious lesion and no suspicious microcalcifications. IMPRESSION: Fibrofatty parenchyma with no suspicious lesions seen BI-RAD Category: 2 Benign Finding(s) FOLLOW-UP: 1YR 1 Year Follow-up (A letter has been sent to the patient regarding results of the study.) Dictated by: Dr. Mirza Merlos MD 02/08/2019 10:[address] Mirza Merlos MD in [place] 02/08/2019 10:43
== END ==
PROVIDERS: PCP Emergency Medicine; Visit Provider Emergency Medicine
DX: Z12.31 Encounter for screening mammogram for malignant neoplasm of breast (principal)
CPT/HCPCS: 77067

== ENCOUNTER → 2019-03-02 07:31 | Outpatient (CLI) | payer MEDICARE, BC, SELFPAY ==
--- NOTE | 2019-03-02 | CA_ITS ---
APPROVED REPORT Exam: Pharmacologic Technologist: Tona Perez, Ht: 5 ft 2 in Wt: 185 lbs BSA: 1.85 m2 HR: 70 bpm BP: 113/74 mmHg Rhythm: Sinus with RBBB Indications: Chest pain/SOB Medical History Medications: Metformin,,,,, Lasix,,,,, SpirOLACTONE,,,,, DulOXETINE,,,,, Nortriptylin,,,,, DilTiazem,,,,, Loperamide,,,,, Oxcarbazepine,,,,, Metoprol,,,,, Allergies: Celebrex, Codone, Iodine Cardiac Risk Factors: HTN, Hyperlipidemia, Diabetes (insulin), FHX of CAD Stress Test Details Test: LEXISCAN HR Resting HR: 70 bpm Max Heart Rate (APMHR): 161 bpm Max HR Achieved: 76 bpm Target HR (85% APMHR): 136 bpm % of APMHR: 47 Recovery HR: 70 bpm BP Resting BP: 113/74 mmHg Max BP: 128/67 mmHg Recovery BP: 119.0/67.0 mmHg ECG Resting ECG: SInus rhythm with nonspecific ST-T changes. Clinical Exercise duration: 04:00 min Highest Stage Achieved: Stress ECG Conclusion Lexiscan portion completed. No complaints at all noted. No ectopy. Less than 1.5mm ST Depression. Images to follow. Test Summary REST 02:08 . . 70 . 113/ 74 . . Stage 1 01:00 . . 70 . . . . Stage 2 01:00 . . 74 . 104/ 63 . . Stage 3 01:00 . . 70 . . . . Stage 4 01:00 . . 70 . 122/ 66 . Stop exercise at 04:00 RECOVERY 01:00 . . 70 . 119/ 64 . . RECOVERY 02:00 . . 71 . 119/ 67 . . RECOVERY 03:00 . . 72 . 123/ 73 . . RECOVERY 04:00 . . 71 . 128/ 67 . . RECOVERY 04:03 . . 71 . 128/ 67 . . Electronically signed by : Tano Shannon, 03/02/2019 19:24:43
--- NOTE | 2019-03-02 07:31 | NM_ITS ---
APPROVED REPORT Exam: Nuclear Stress Test Indication: Chest pain, SOB, HTN, CAD, CHF, HTN, DM, High cholesterol, Family history Patient Location: Outpatient Stress [place] Tech:Tessa Blanco, ARRT, RT (R)(N) Ht: 5 ft 2 in Wt: 185 lbs Bra Size: 36B HR: 70 bpm BP: 113/74 mmHg BSA: 1.85 m2 BMI: 33.8 History: Chest pain, SOB, HTN, CAD, CHF, HTN, DM, High cholesterol, Family history Procedure: Patient received a 0.4 mg of intravenous Lexiscan, resting heart rate 70 bpm, resting blood pressure 113/74 mmHg, with Lexiscan maximum heart rate achived was 74 bpm which is Less than 85 % of the maximum predicted heart rate and blood pressure was 121/48 mmHg. With Lexiscan, patient denied any complaint of chest pain. Electrocardiogram Resting electrocardiogram showed sinus rhythm nonspecific ST-T changes. With Lexiscan there is additional millimeter ST segment depression noted from the baseline EKG. The EKG portion of the Lexiscan sestamibi is nondiagnostic. Cardiac Stress and Resting SPECT Images: Cardiac Stress and Resting SPECT images were obtained using technetium 99m Myoview 31.3 mCi stress and 10.52 mCi at rest. Gated SPECT with analysis of segmental wall motion and calculation of the ejection fraction also done. Cardiac stress and resting SPECT images show uniform myocardial activity without segmental perfusion abnormality, computer derived ejection fraction is over 65% with no regional wall motion abnormality, right ventricle is normal size and contractility. Conclusion: 1. The EKG portion of the Lexiscan Myoview is nondiagnostic. 2. No scintigraphic evidence of reversible ischemia seen, computer derived ejection fraction is over 65% with no regional wall motion abnormality, right ventricle is normal size and contractility. 3. Normal Lexiscan Myoview study. Electronically signed by : Tano Shannon, 03/02/2019 19:26:42
--- NOTE | 2019-03-02 10:15 | HMH.ITSHM ---
Current Home Medications as stated by this patient Jaci Steiner or customer engagement representative. []METFORMIN GUAIFENESIN DULOXETINE DILTIAZEM SPIRONOLACTONE OXCARBAZEPINE NOTRIPTYLINE METOPROLOL LOPERAMIDE FUROSEMIDE
== END ==
PROVIDERS: PCP Emergency Medicine; Visit Provider Internal Medicine Cardiovascular Disease
DX: E78.5 Hyperlipidemia, unspecified (principal); I11.9 Hypertensive heart disease without heart failure; I20.9 Angina pectoris, unspecified; I48.91 Unspecified atrial fibrillation; R06.00 Dyspnea, unspecified; R07.9 Chest pain, unspecified; Z01.810 Encounter for preprocedural cardiovascular examination; Z95.0 Presence of cardiac pacemaker
CPT/HCPCS: 78452; 93017; A9502; J2785

== ENCOUNTER → 2019-03-24 10:36 | Outpatient (CLI) | payer MEDICARE, BC, SELFPAY | PROVIDERS: Visit Provider Orthopaedic Surgery | DX: S81.802A Unspecified open wound, left lower leg, initial encounter (principal) | CPT/HCPCS: 87070; 87077; 87186; 87205 ==

== ENCOUNTER → 2019-04-03 14:36 | Outpatient (CLI) | payer MEDICARE, BC, SELFPAY ==
[2019-04-03 15:41] LABS: Basophils # 0.1 K/mm3 (0-0.2); Eosinophils # 0.2 K/mm3 (0.0-0.4); Eosinophils % 2.1 % (0.1-12.0); Hematocrit 34.7 % (37.0-47.0); Hemoglobin 11.3 g/dL (12.2-16.2); Lymphocytes # 1.5 K/mm3 (0.7-4.5); Mean Corpuscular HGB Conc 32.5 g/dL (31.8-35.4); Mean Corpuscular Hemoglobin 28.8 pg (27.0-31.2); Mean Corpuscular Volume 88.5 fl (81-99); Mean Platelet Volume 8.7 fl (7.4-10.4); Monocytes # 0.5 K/mm3 (0.1-1.0); Monocytes % 6.1 % (1.7-9.3); Neutrophils # 5.3 K/mm3 (1.8-7.8); Neutrophils % 70.7 % (37.0-80.0); Platelet Count 233 K/mm3 (142-424); Red Blood Count 3.91 M/mm3 (4.20-5.40); Red Cell Distribution Width 14.3 % (11.5-17.5); White Blood Count 7.5 K/mm3 (4.8-10.8)
[2019-04-03 17:50] LABS: Chloride 101 mmol/L (98-107); Potassium 4.3 mmoL/L (3.5-5.1); Sodium 138 mmol/L (136-145)
[2019-04-03 17:52] LABS: Blood Urea Nitrogen 14 mg/dl (7-17); Estimated Glomerular Filt Rate 73 ml/min (>60); GFR (African American) 89 ML/MIN (>60)
[2019-04-03 17:53] LABS: Alanine Aminotransferase 10 U/L (12-78); Albumin Level 3.4 g/dl (3.5-5.0); Albumin/Globulin Ratio 1.3 (1.1-1.8); Alkaline Phosphatase 82 U/L (38-126); Anion Gap 10.3 mEq/L (5-15); Aspartate Amino Transferase 15 U/L (14-36); Calcium 8.7 mg/dl (8.4-10.2); Carbon Dioxide 31 mmol/L (22.0-30.0); Globulin 2.6 g/dL (1.3-3.2); Glucose 143 mg/dl (74-100)
[2019-04-03 17:54] LABS: Bilirubin,Total 0.1 mg/dl (0.2-1.3)
== END ==
PROVIDERS: Visit Provider Surgery
DX: R07.9 Chest pain, unspecified (principal); K80.20 Calculus of gallbladder without cholecystitis without obstruction
CPT/HCPCS: 36415; 80053; 85025

== ENCOUNTER 2019-04-14 10:00 | Outpatient (RCR) | payer MEDICARE, BC, SELFPAY ==
--- NOTE | 2018-10-30 14:55 | HMH.PTOPWND ---
Rehab Outpt Wound Evaluation Rehab OP Wound Evaluation Start: 10/30/18 14:37 Freq: Status: Active Protocol: Document 10/30/18 14:49 PANTERA (Rec: 10/30/18 14:55 PHORGILBERT [id number]) Electronically Signed By Pepe Dodgee, PT 10/30/18 14:49 Subjective/History History History Pt is 58 yowf who presents with c/o LE edema, right > left, x several years with insidious onset of symptoms. She is a poor historian, but does c/o pain and tenderness throughout the right lower leg and knee. She had X-rays performed which show severe OA of the right knee and she reports hx of right knee arthroscopy and left ankle ORIF in the past. She also has pacemaker and DM-II. Subjective Subjective Pt c/o 5/10 pain in the right LE at rest. Lymphedema Eval Classification of Lymphedema Secondary Lymphedema Yes Stemmer's sign Stemmer's Sign yes Stage of Lymphedema Lymphedema stages Stage II (Pitting edema, increased fibrosis w/ decreased pitting) Skin Changes Dry Skin Yes Skin Folds Yes Hyperkeratosis Yes Redness Yes Discoloration of Skin Yes Other Changes Yes Pain Scale Pain Scale (0-10) 5 Affected Extremities Areas Affected by Lymphedema/Edema Right Lower Extremity,Left Lower Extremity Manual Lymphatic Drainage Treatment Area MLD Treatment Area Right Lower Extremity,Left Lower Extremity Wound Problems/Impairments Impairments Problems/Impairmments Palpation Tenderness,Impaired Endurance,Impaired Gait Pattern,Impaired Walking, Impaired Standing,Impaired Recreational Activities, Increased Edema,Lymphedema Present,Subjective C/O Pain, Impaired Self Care/Self Management Prognosis Rehab Potential Fair Clinical Impression Consistent with Diagnosis Yes Short Term Goals Number of Weeks 4 Decreased Palpation Tenderness Yes: to min Increase Ability to Stand Yes Decrease Subjective C/O Pain
--- NOTE | 2018-12-02 14:44 | HMH.RHREAS ---
Rehab Reassessment Rehab OP Re-assessment Start: 12/02/18 14:38 Freq: Status: Active Protocol: Document 12/02/18 14:40 PANTERA (Rec: 12/02/18 14:44 PANTERA [id number]) Electronically Signed By Pepe Fuller, PT 12/02/18 14:40 Rehab Re-assessment Subjective Subjective Pt presents today with anterior right chaparro hematoma with a small central wound. She states, I bumped in to something the other day and bruised it, then it cracked open a little. Objective Objective Notes Right LE edema remains increased this date with continued 2+ pitting and fibrotic tissue quaity, worse in the lower right leg. Assessment Progress Assessment Slower Than Expected Assessment Notes New onset hematoma with small wound have likely increased the right LE edema at this time and slowed the progress that was being made previously . Patient goals met none Goals Not Met ST,2,3,4,5 LT,2,3, 4,5,6 Revised Goals none Plan Plan Continue per intial POC Frequency of Therapy 2x/wk Duration of therapy 8 wks Time and Billing Re-Eval Time 15 Re-Eval Billing Units 1 PHYSICIAN CERTIFICATION: I certify the specified therapy services for Jaci Steiner are required, authorized, and reviewed every 30 days.
--- NOTE | 2019-01-23 10:34 | HMH.RHREAS ---
Rehab Reassessment Rehab OP Re-assessment Start: 12/02/18 14:38 Freq: Status: Active Protocol: Document 01/23/19 10:27 PANTERA (Rec: 01/23/19 10:33 PANTERA [id number]) Electronically Signed By Pepe Fuller, PT 01/23/19 10:27 Rehab Re-assessment Subjective Subjective Pt reports feeling some better in the legs, less heaviness. Objective Objective Notes B LE 2+ pitting edema remains present. Right chaparro wound with full granulation tissue and decreased depth, No tunnelling noted now. Assessment Progress Assessment Progressing as Expected Assessment Notes Pt with improved edema overall , being fot for lymphedema pumps which will considerably help going forward. Improving ambulation. Wound healing very well. Patient goals met ST,2,3,4,5 Goals Not Met LT,2,3,4,5,6 Revised Goals none Plan Plan Continue per intial POC Frequency of Therapy 2x/wk Duration of therapy 8 wks Time and Billing Re-Eval Time 15 Re-Eval Billing Units 1 PHYSICIAN CERTIFICATION: I certify the specified therapy services for Jaci Steiner are required, authorized, and reviewed every 30 days.
== END 2019-04-14 10:05 | disposition home or self-care (01) ==
LOC: PT 10:00
PROVIDERS: PCP Emergency Medicine; Visit Provider Orthopaedic Surgery
DX: I89.0 Lymphedema, not elsewhere classified (principal)
CPT/HCPCS: 97140; 97162; 97164; 97760

== ENCOUNTER 2019-06-16 09:00 | Outpatient (RCR) | payer MEDICARE, BC, SELFPAY ==
--- NOTE | 2019-04-28 13:26 | HMH.PTOPWND ---
Rehab Outpt Wound Evaluation Rehab OP Wound Evaluation Start: 04/28/19 13:18 Freq: Status: Active Protocol: Document 04/28/19 13:18 PANTERA (Rec: 04/28/19 13:26 PHORNE [id number]) Electronically Signed By Pepe Fuller, PT 04/28/19 13:18 Subjective/History History History Pt is 59 yowf who presents with c/o B LE edema for many years, R > L. She also has recent hx of R anterior chaparro hematoma with open wound which has healed fully, but now with dermatitis vs cellulitis in the same area. She reports no c/o pain at this time, but she does have increased pain with edema intermittently. Subjective Subjective Currently 0/10 pain, at worst 3/10. She does c/o dry, itchy skin. Lymphedema Eval Classification of Lymphedema Secondary Lymphedema Yes Stemmer's sign Stemmer's Sign yes Stage of Lymphedema Lymphedema stages Stage II (Pitting edema, increased fibrosis w/ decreased pitting) Skin Changes Dry Skin Yes Skin Folds Yes Redness Yes Wounds Yes Brittle Uneven Nails Yes Discoloration of Skin Yes Other Changes Yes Pain Scale Pain Scale (0-10) 3 Affected Extremities Areas Affected by Lymphedema/Edema Right Lower Extremity,Left Lower Extremity Manual Lymphatic Drainage Treatment Area MLD Treatment Area Right Lower Extremity,Left Lower Extremity Wound Problems/Impairments Impairments Problems/Impairmments Palpation Tenderness,Impaired Gait Pattern,Impaired Walking, Impaired Standing,Increased Edema,Lymphedema Present,Wound Care Needs,Subjective C/O Pain,Impaired Self Care/Self Management Prognosis Rehab Potential Fair Clinical Impression Consistent with Diagnosis Yes Short Term Goals Number of Weeks 4 Decreased Palpation Tenderness Yes: to min Decrease Subjective C/O Pain Yes: 2/10 Patient to Understand Lymphedema Yes Treatment and Exercises Decrease Girth Measurments by (cm) Yes: by 10 cm Penitentiary Goals Number of Weeks 8 Decreased Pa
--- NOTE | 2019-05-21 10:56 | HMH.RHREAS ---
Rehab Reassessment Rehab OP Re-assessment Start: 05/21/19 10:48 Freq: Status: Active Protocol: Document 05/21/19 10:49 PANTERA (Rec: 05/21/19 10:56 PANTERA [id number]) Electronically Signed By Pepe Fuller, PT 05/21/19 10:49 Rehab Re-assessment Subjective Subjective Pt reports she feels better overall, but continues to have some tenderness and pain in B LE, R > L. Objective Objective Notes R LE with continued appearnce of cellulitis with increased redness over anterior chaparro and multiple small red aeas of irritation around the circumference of the R lower leg. Assessment Progress Assessment Progressing as Expected Assessment Notes Pt has shown some decrease in edema, but continues to need monitoring for cellulitis. Patient goals met ST,2,3,4 Goals Not Met LT,2,3,4,5,6 Revised Goals none Plan Plan Continue per initial POC. Frequency of Therapy 2 x/wk Duration of therapy 8 wks. Time and Billing Re-Eval Time 15 Re-Eval Billing Units 1 PHYSICIAN CERTIFICATION: I certify the specified therapy services for Jaci Steiner are required, authorized, and reviewed every 30 days.
== END 2019-06-16 09:05 | disposition home or self-care (01) ==
LOC: PT 09:00
PROVIDERS: PCP Emergency Medicine; Visit Provider Emergency Medicine
DX: I89.0 Lymphedema, not elsewhere classified (principal)
CPT/HCPCS: 29580; 97140; 97162; 97164; 97597

== ENCOUNTER 2019-08-28 14:42 | Emergency (ER) | payer MEDICARE, BC, SELFPAY ==
[2019-08-28 14:43] VITALS: BP 123/53; PULSE 80; RESP 16; TEMP 37.3; O2SAT 98; BMI 34.7
--- NOTE | 2019-08-28 14:50 | XR_ITS ---
PROCEDURE: XR CHEST PORTABLE CLINICAL INDICATION: pain Chest pain COMPARISON: XR CHEST PORTABLE from 09/29/2018 XR CHEST 2V from 02/05/2019 XR CHEST PORTABLE from 04/11/2019 FINDINGS: Borderline cardiomegaly without failure. Bipolar pacemaker is present right subclavian approach. Medium-sized hiatal hernia. Patchy density is present in the left CP angle and may be due to an area of pleural thickening versus patchy infiltrate. Other findings:None. IMPRESSION: Cardiomegaly with hiatal hernia and patchy infiltrate versus pleural thickening/effusion left lung base laterally Dictated by: Emiliano Medellin MD 08/28/2019 16:07 Electronically signed by Emiliano Medellin MD in [place] 08/28/2019 16:07
--- NOTE | 2019-08-28 14:52 | ECG_ITS ---
APPROVED REPORT Exam: Resting ECG HR:86 bpm ECG Measurements Heart Rate 86 AXES QRSd 114 QRS 139 QT 240 T -73 QTc 287 <Conclusion> Demand pacemaker, interpretation is based on intrinsic rhythm Atrial fibrillation Abnormal ECG Electronically signed by : Atif Peres, 08/28/2019 20:17:33
[2019-08-28 14:58] LABS: Basophils # 0.1 K/mm3 (0-0.2); Basophils % 1.2 % (0.1-2.0); Chloride 99 mmol/L (98-107); Eosinophils # 0.2 K/mm3 (0.0-0.4); Eosinophils % 2.3 % (0.1-12.0); Hematocrit 36.9 % (37.0-47.0); Hemoglobin 12.3 g/dL (12.2-16.2); Lymphocytes # 1.6 K/mm3 (0.7-4.5); Lymphocytes % 22.1 % (10-50); Mean Corpuscular HGB Conc 33.3 g/dL (31.8-35.4); Mean Corpuscular Hemoglobin 27.8 pg (27.0-31.2); Mean Corpuscular Volume 83.5 fl (81-99); Mean Platelet Volume 8.3 fl (7.4-10.4); Monocytes # 0.5 K/mm3 (0.1-1.0); Neutrophils # 4.9 K/mm3 (1.8-7.8); Neutrophils % 67.3 % (37.0-80.0); Platelet Count 180 K/mm3 (142-424); Red Blood Count 4.41 M/mm3 (4.20-5.40); Red Cell Distribution Width 16.1 % (11.5-17.5); Sodium 139 mmol/L (136-145); White Blood Count 7.3 K/mm3 (4.8-10.8)
[2019-08-28 14:59] LABS: Potassium 3.7 mmoL/L (3.5-5.1)
[2019-08-28 15:01] LABS: Alanine Aminotransferase 18 U/L (12-78); Alkaline Phosphatase 93 U/L (38-126); Anion Gap 14.7 mEq/L (5-15); Aspartate Amino Transferase 22 U/L (14-36); Bilirubin,Indirect 0.3 mg/dL (0.0-0.9); Bilirubin,Total 0.3 mg/dl (0.2-1.3); Bilirubin,Unconjugated 0.3 mg/dL (0.0-1.1); Blood Urea Nitrogen 11 mg/dl (7-17); Carbon Dioxide 29 mmol/L (22.0-30.0); Creatinine Clearance Estimated 103 mL/min (50-200); Estimated Glomerular Filt Rate 73 ml/min (>60); GFR (African American) 89 ML/MIN (>60)
[2019-08-28 15:02] LABS: Albumin Level 3.7 g/dl (3.5-5.0); Calcium 8.9 mg/dl (8.4-10.2); Glucose 154 mg/dl (74-100); Total Protein,Serum 6.8 g/dl (6.3-8.2)
[2019-08-28 15:14] LABS: Troponin I < 0.01 ng/ml (0.00-0.034)
--- NOTE | 2019-08-28 15:15 | HMH.EDCP ---
ED Disposition Clinical Impression: Chest pain Disposition: Home, Self-Care Condition on Discharge: Good Instructions: DI for Atypical Chest Pain Referrals: Didier Bueno MD [Primary Care Provider] - - Critical Care Critical Care Time: No Attestation: On 08/28/19, the high probability of a clinically significant, sudden or life threatening deterioration of the following system(s) required my full and direct attention, intervention and personal management. The time I documented below is in addition to time spent performing reported procedures but includes the following listed in this critical care notation. Medical Decision Making - Medical Records Medical records reviewed: Yes: I reviewed the patient's medical records. - Moody Inquiry Pt receiving controlled substance: No Vital Signs: 08/28/19 14:43 Temperature 99.1 F Temperature Source Oral Pulse Rate [Left Radial] 80 Respiratory Rate 16 Blood Pressure [Right Arm] 123/53 L Blood Pressure Mean [Right Arm] 76 Blood Pressure Position [Right Arm] Sitting 02 Sat by Pulse Oximetry 98 Oxygen Delivery Method Room Air - Lab Data Lab results reviewed: Yes: I reviewed the patient's lab results. Lab Results 08/28/19 14:44: WBC 7.3, RBC 4.41, Hgb 12.3, Hct 36.9 L, MCV 83.5, MCH 27.8, MCHC 33.3, RDW 16.1, Plt Count 180, MPV 8.3, Neut % (Auto) 67.3, Lymph % (Auto) 22.1, Rains % (Auto) 7.0, Eos % (Auto) 2.3, Baso % (Auto) 1.2, Neut # (Auto) 4.9, Lymph # (Auto) 1.6, Rains # (Auto) 0.5, Eos # (Auto) 0.2, Baso # (Auto) 0.1 08/28/19 14:44: Sodium 139, Potassium 3.7, Chloride 99, Carbon Dioxide 29, Anion Gap 14.7, BUN 11, Creatinine 0.80, Estimated Creat Clear 103, Estimated GFR 73, Est GFR ( Amer) 89, Glucose 154 H, Calcium 8.9, Total Bilirubin 0.3, Direct Bilirubin 0.0, Conjugated Bilirubin 0.0, Indirect Bilirubin 0.3, Unconjugated Bilirubin 0.3, AST 22, ALT 18, Alkaline Phosphatase 93, Troponin I < 0.01, Total Protein 6.8, Albumin 3.7 Result diagrams: 08/28/19 14:44 08/28/19 14:44 Orders (Tests/Meds): ORDERS Category Date Time Status XR chest portable Stat Exams 08/28/19 14:50 Taken Troponin I Q3H Lab 08/28/19 18:00 Ordered Troponin I Q3H Lab 08/28/19 21:00 Ordered Urinalysis and Microscopic Stat Lab 08/28/19 15:42 Ordered - REINIER Score for Non-Stemi Age of Patient: 50-59 years old Heart Rate: 50-69 bpm Systolic Blood Pressure: 100-119 mmHg Serum Creatinine: 0.40-0.79 mg/dl CHF Killip Class: I-No CHF Other Risk Factors: None Non-Stemi Risk Score: 91 Risk Stratification: 1-108 = Low Risk Chest Pain HPI - General Chief Complaint: Chest Pain Stated Complaint: chest pain Time Seen by Provider: 08/28/19 15:15 Mode of Arrival: EMS Source of Information: Patient Limitations: No Limitations Description of Symptoms (Recalled from ER Triage Doc. by RN): to ed per squad with c/o intermittent lt side chest pain x 2 days pt poor historian. pt states I think it might be stress because I'm suppose to get my gallbladder out and it was cancelled because of covid . pt denies any radiation of pain, sob, nausea, vomiting. - History of Present Illness HPI narrative: 59-year-old female presents the emergency department with right-sided chest pain. She states that the pain also radiates over to the left side and describes this pain is like a pressure-like sensation with no shortness of breath. Patient states she does have hypertension but it is controlled. Patient states that the pain is about 3 out of 10 classifies it as a sharp sensation. Exacerbating factors include movement and increasing intrathoracic pressure alleviating factors include rest.Patient denies any recent cough or shortness of breath, patient denies any sore throat or headache, patient denies any loss of taste or smell, patient denies any malaise or fatigue, patient denies any abdominal pain nausea vomiting or diarrhea. - Related Data Home Medications Medication Instructions
--- NOTE | 2019-08-28 16:06 | PC.NURSE ---
Called [facility] for transport
[2019-08-28 16:32] VITALS: BP 120/85; PULSE 80; RESP 20; TEMP 36.6; O2SAT 98
== END 2019-08-28 16:33 | disposition home or self-care (01) ==
PROVIDERS: Emergency Provider Family Medicine; PCP Emergency Medicine
DX: R07.9 Chest pain, unspecified (principal); G43.709 Chronic migraine without aura, not intractable, without status migrainosus; Z95.0 Presence of cardiac pacemaker; I48.91 Unspecified atrial fibrillation; I25.10 Atherosclerotic heart disease of native coronary artery without angina pectoris; E11.9 Type 2 diabetes mellitus without complications; E78.5 Hyperlipidemia, unspecified; I10 Essential (primary) hypertension; Z79.899 Other long term (current) drug therapy; Z88.5 Allergy status to narcotic agent; Z88.8 Allergy status to other drugs, medicaments and biological substances
CPT/HCPCS: 71045; 80048; 80076; 84484; 85025; 93005; 99283

== ENCOUNTER → 2019-10-13 09:48 | Outpatient (CLI) | payer MEDICARE, BC, SELFPAY ==
[2019-10-13 10:15] LABS: Basophils # 0.1 K/mm3 (0-0.2); Basophils % 1.3 % (0.1-2.0); Eosinophils # 0.2 K/mm3 (0.0-0.4); Eosinophils % 2.7 % (0.1-12.0); Hemoglobin 13.2 g/dL (12.2-16.2); Lymphocytes % 29.1 % (10-50); Mean Corpuscular HGB Conc 33.8 g/dL (31.8-35.4); Mean Corpuscular Hemoglobin 28.5 pg (27.0-31.2); Mean Corpuscular Volume 84.3 fl (81-99); Mean Platelet Volume 8.6 fl (7.4-10.4); Monocytes # 0.6 K/mm3 (0.1-1.0); Monocytes % 8.5 % (1.7-9.3); Neutrophils # 4.1 K/mm3 (1.8-7.8); Neutrophils % 58.4 % (37.0-80.0); Platelet Count 196 K/mm3 (142-424); Red Blood Count 4.62 M/mm3 (4.20-5.40); Red Cell Distribution Width 15.9 % (11.5-17.5); White Blood Count 6.9 K/mm3 (4.8-10.8)
[2019-10-13 10:59] LABS: Alanine Aminotransferase 12 U/L (12-78); Albumin Level 3.8 g/dl (3.5-5.0); Albumin/Globulin Ratio 1.3 (1.1-1.8); Alkaline Phosphatase 99 U/L (38-126); Aspartate Amino Transferase 19 U/L (14-36); Bilirubin,Total 0.3 mg/dl (0.2-1.3); Blood Urea Nitrogen 14 mg/dl (7-17); Calcium 9.7 mg/dl (8.4-10.2); Carbon Dioxide 32 mmol/L (22.0-30.0); Chloride 99 mmol/L (98-107); Estimated Glomerular Filt Rate 73 ml/min (>60); GFR (African American) 89 ML/MIN (>60); Glucose 134 mg/dl (74-100); Sodium 139 mmol/L (136-145); Total Protein,Serum 6.8 g/dl (6.3-8.2)
[2019-10-13 12:44] LABS: Coronavirus 19 IgG Antibody Positive (Negative); Coronavirus 19 IgM Antibody Negative (Negative)
== END ==
PROVIDERS: Visit Provider Surgery
DX: K80.20 Calculus of gallbladder without cholecystitis without obstruction (principal); Z01.818 Encounter for other preprocedural examination
CPT/HCPCS: 36415; 80053; 85025; 86328

== ENCOUNTER 2019-10-14 07:19 | Day surgery (SDC) | payer MEDICARE, BC, SELFPAY ==
--- NOTE | 2019-10-13 16:11 | SUR.PREOP ---
Left message with hospital recycling manager (Duarte Jessica) that patient requested hospital recycling manager to pray with her prior to going into surgery in the morning
[2019-10-14 08:09] VITALS: BP 112/77; PULSE 70; RESP 18; TEMP 36.4; O2SAT 98
[2019-10-14 08:27] LABS: POC Glucose,Bedside 111 (70-110)
== END 2019-10-14 12:44 ==
LOC: OR 07:22
PROVIDERS: PCP Emergency Medicine; Visit Provider Surgery
PROC: 0FT44ZZ Resection of Gallbladder, Percutaneous Endoscopic Approach (ICD-10-PCS; CPT 47562; principal; 2019-10-14 09:15)
DX: Z53.8 Procedure and treatment not carried out for other reasons (principal); K80.20 Calculus of gallbladder without cholecystitis without obstruction; I11.9 Hypertensive heart disease without heart failure; E78.5 Hyperlipidemia, unspecified; I48.92 Unspecified atrial flutter; I25.10 Atherosclerotic heart disease of native coronary artery without angina pectoris; Z95.0 Presence of cardiac pacemaker; Z79.01 Long term (current) use of anticoagulants; Z79.84 Long term (current) use of oral hypoglycemic drugs; Z79.899 Other long term (current) drug therapy
CPT/HCPCS: 47562; 82962; 96374

== ENCOUNTER → 2019-11-10 14:38 | Outpatient (CLI) | payer MEDICARE, BC, SELFPAY ==
[2019-11-10 16:15] LABS: Coronavirus 19 IgG Antibody Positive (Negative); Coronavirus 19 IgM Antibody Negative (Negative)
== END ==
PROVIDERS: Visit Provider Surgery
DX: Z01.84 Encounter for antibody response examination (principal); U07.1 COVID-19
CPT/HCPCS: 36415; 86328

== ENCOUNTER 2019-11-11 06:51 | Day surgery (SDC) | payer MEDICARE, BC, SELFPAY ==
[2019-11-11] VITALS (15 sets, daily range): BP systolic 108–125; BP diastolic 60–72; PULSE 64–70; RESP 12–18; TEMP 36.4–43; O2SAT 94–97; BMI 30.9
[2019-11-11 07:37] LABS: POC Glucose,Bedside 92 (70-110)
--- NOTE | 2019-11-11 08:00 | HMH.ANESCL ---
[facility] Anesthesia Checklist - Patient Identification Patient Identification: Arm Band, Verbal (Name & ) - Structural Data Admitted From: Home Planned Operative Procedure/s: Laparoscopic cholecystectomy Consent for Planned Operative Procedure(s) Verified: Yes Verified Documents: Surgical Consent, History and Physical, Cardiac Clearance - NPO Status Verified Time NPO: 00:00 - Chart Verification Results Verified: CBC, BMP, ECG - Additional verifications Fingerstick Blood Glucose: 92 Anesthesia Reactions: No Hx Blood Transfusions: Yes (september 2006) Blood Transfusion Reaction: No - Airway Assessment C-Spine Mobility Assessed: Yes (MP 2, TMD 3, Full neck ROM) TMJ Mobility Assessed: Yes Dentition: Poor Dentition (Multiple missing, decay present) - Neurological Assessment Level of Consciousness: Awake, Alert, Appropriate, Follows Commands Hx Seizures: No Numbness or tingling in extremities: No - Anesthesia Plan Anesthesia Risk discussed: Yes Anesthesia Plan: Verified ASA Class: III Anesthesia Type: General [facility] History I have reviewed the patient's past medical history: Yes Medical History: Reports:: Atrial Fibrillation, Congestive Heart Failure, Coronary Artery Disease, Diabetes Mellitus Type 2, Gastroesophageal Reflux Disease(GERD), Hiatal Hernia, Hyperlipidemia, Hypertension, Internal Pacemaker, Migraine Denies:: Cancer, Diabetes Mellitus Type 1, MRSA, Seizures *Have you ever received a pneumonia vaccine?: No *Have you received a flu vaccine this season?: Yes Other Medical History: Denies: Blood Transfusion Reaction Comment:: Obesity Anesthesia experience/problems:: No prior complications Laterality Cases: Left: Breast Biopsy, Right: Arthroscopy Knee Other Surgeries: Yes: Cardiac Catheterization (2016 at [facility]), Cardiac Surgery, Colonoscopy, Pacemaker, Other Amputation: No Fractures: No - *Social History Last grade of school completed: High school graduate Smoking Status: Never smoker Alcohol Intake: never Alcohol Intake Frequency:: other Substance Use Type: denies use *Occupational Status:: disabled Housing: assisted living facility Household Members: other *Travel in the last 8 weeks: None Family Hx:: Unable to obtain
--- NOTE | 2019-11-11 09:32 | HMH.OPNOTE ---
Date of procedure: 11/11/19 Pre-op Diagnosis:: Symptomatic gallstones Post-op Diagnosis:: Same Procedure performed:: Laparoscopic cholecystectomy Surgeon:: Juaquin Perkins MD Pest Control Specialist(s):: Rupa Edward MARINA MANAGER:: Josue Nino Anesthesia: GETA Estimated blood loss (mL): 20 Clinical Note:: Patient resents for cholecystectomy. She is a 59-year-old somewhat debilitated chronically ill [facility] resident with history of atrial fibrillation/flutter on Elliquis, coronary artery disease, pacemaker placement with allergies to hydrocodone, oxycodone, and tramadol who was originally referred by Dr. Bueno for gallbladder. She is a poor historian. She had presented to the emergency department in September 2018 with some diffuse abdominal pain as well as right-sided abdominal pain and chest pain. This seemed to occur without any inciting event. She underwent a CT scan without any contrast whatsoever at that time which revealed large hiatal hernia, small umbilical hernia, and gallstones. She was sent for surgical consultation. When she was originally seen in surgical consultation she was relatively asymptomatic. I had her undergo dedicated gallbladder ultrasound which revealed uncomplicated cholelithiasis. Plan at that time was for nonoperative management as it seemed as though her gallstones were asymptomatic as well as to undergo cardiology risk assessment. Over time she has developed symptoms more consistent with possible symptomatic gallstones. I felt that even if she was deemed an acceptable risk by cardiology that potential gallbladder surgery would need to be taken with significant discretion. She does describe some significant symptoms consistent with right-sided abdominal pain occurring postprandially. Patient wished to pursue cholecystectomy and it was felt that this is needed from her primary care provider. Patient had been scheduled for cholecystectomy in April but then this was canceled due to COVID. She has had some progressive symptoms. She states that she has had several episodes of right upper quadrant pain occurring postprandially. She had a severe attack she describes in early August. She does state that she had tested positive for COVID during the testing for the outbreak at her residence institution. She had been scheduled for surgery a couple of weeks ago but had failed to hold her Eliquis for the recommended timeframe by cardiology. SHe was then rescheduled for surgery for the third time. Operative findings:: He had a markedly distended gallbladder with small to moderate stones. There were omental adhesions obscuring the gallbladder. She had a branching cystic artery. Umbilical hernia was inconsequential. Operative note:: Consent was obtained and patient was taken to the operating room. She was positioned in a supine position. General anesthesia was induced. Abdomen was prepped and draped in the standard surgical fashion. Due to the findings of umbilical hernia on previous CT scan Veress needle was inserted through tiny incision in the left subcostal area and CO2 pneumoperitoneum was achieved to 15 mmHg. There was no easily palpable umbilical hernia. Subumbilical skin incision was made and dissection was carried down to the fascia. There was a very tiny less than 1 cm defect. 11 mm optical trocar was inserted through the peritoneum at the fascial defect. She was positioned in reverse Trendelenburg left side down. A couple 5 mm trochars were inserted in the right upper abdomen. 10 mm trocar was inserted in the epigastrium. Gallbladder was identified and grasped retracted anteriorly and superiorly over the dome of the liver. The gallbladder was obscured with omental adhesions which were taken down using blunt dissection with some use of [place] ultrasonic harmonic jorge. Gallbladder was markedly elongated and distended and had a somewhat of a twisting pattern at the elongated neck of the gallbladder. Ultimately dis
--- NOTE | 2019-11-11 09:44 | HMH.ANESI ---
[facility] Anesthesia Record Part I Intake, IV Amount: 1,500 Estimated blood loss (mL): 0 Urine output (mL): 0 Blood Pressure: 125/72 SaO2: 96 Pulse Rate: 70 Respiratory Rate: 12 Temperature: 97.9 F Patient is:: Awake, Stable Stable to PACU at:: 09:40
[2019-11-11 10:11] LABS: POC Glucose,Bedside 103 (70-110)
--- NOTE | 2019-11-11 12:40 | P.PN_ITS ---
[facility] Anesthesia Record Part II Discharge Time: 10:10 Destination: [facility] PACU nurse assessment reviewed?: Yes Patient Condition:: Good Anesthesia Complications:: None Swallowing reflex intact?: Yes Cyanosis?: No Blood Pressure: 109/68 Pulse Rate: 69 Temperature: 97.8 F Mental Status: Alert & Oriented Pain level:: 2 Nausea and/or vomitting:: None Intake, IV Amount: 1,500
== END 2019-11-11 11:35 | disposition home or self-care (01) ==
PROVIDERS: PCP Emergency Medicine; Visit Provider Surgery
PROC: 0FT44ZZ Resection of Gallbladder, Percutaneous Endoscopic Approach (ICD-10-PCS; CPT 47562; principal; 2019-11-11 08:45)
DX: K80.80 Other cholelithiasis without obstruction (principal); K66.0 Peritoneal adhesions (postprocedural) (postinfection); K42.9 Umbilical hernia without obstruction or gangrene; E11.9 Type 2 diabetes mellitus without complications; I48.91 Unspecified atrial fibrillation; I11.0 Hypertensive heart disease with heart failure; I50.9 Heart failure, unspecified; E78.5 Hyperlipidemia, unspecified; Z95.0 Presence of cardiac pacemaker; K21.9 Gastro-esophageal reflux disease without esophagitis; I25.10 Atherosclerotic heart disease of native coronary artery without angina pectoris; G43.909 Migraine, unspecified, not intractable, without status migrainosus
CPT/HCPCS: 47562; 82962; 88304; 96374; J2405; J2710

== ENCOUNTER → 2019-12-18 10:39 | Outpatient (CLI) | payer MEDICARE, BC, SELFPAY ==
--- NOTE | 2019-12-18 10:40 | MM_ITS ---
PROCEDURE: MM DIG SCREENING MAMM BI W/CAD Referring Doctor: Didier Bueno Patient Age:59Y CLINICAL INDICATION: screening 59-year-old. Previous surgical/excisional biopsy left breast No new complaints. No hormones. Family history-unremarkable COMPARISON: MG MM DIGITAL IMAGE BREAST SPECIMEN from 02/08/2011 MG MM MAMMO DIGITAL DIAGNOSTIC W CAD BILAT from 08/29/2011 MG MM MAMMO DIGITAL DIAGNOSTIC W CAD BILAT from 09/10/2012 MG MM DIG SCREENING MAMM BI W/CAD from 01/30/2019 TECHNIQUE: Standard CC and MLO images were obtained. R2 CAD reviewed. Bilateral digital breast tomosynthesis included. Additional left MLO nipple profile view included FINDINGS: Minimal residual fibroglandular elements bilaterally; overall lower density breast. With moderate progressive fatty replacement over the course of multiple studies dating back to 2011 but no new dominant or suspicious mass but no suspicious calcifications Right breast stable. No new areas significant concern Minor area of asymmetry at the lateral right breast has been present since studies dating back to 2011 Left breast no new areas of significant concern Area of focal minimal fibroglandular elements at the lateral retroareolar region are similar to 2012 and 2011 Bilateral follow-up 1 year recommended IMPRESSION: No significant new areas of concern Stable bilateral mammogram BI-RAD Category: 2 Benign Finding(s) FOLLOW-UP: 1YR 1 Year Follow-up (A letter has been sent to the patient regarding results of the study.) Dictated by: Chris Jennings MD 12/24/2019 10:00 Chris Jennings MD in [place] 12/24/2019 10:00
== END ==
PROVIDERS: PCP Emergency Medicine; Visit Provider Emergency Medicine
DX: Z12.31 Encounter for screening mammogram for malignant neoplasm of breast (principal)
CPT/HCPCS: 77063; 77067

== ENCOUNTER 2019-12-24 10:00 | Outpatient (RCR) | payer MEDICARE, BC, SELFPAY ==
--- NOTE | 2019-10-20 08:54 | HMH.PTOPWND ---
Rehab Outpt Wound Evaluation Rehab OP Wound Evaluation Start: 10/20/19 08:40 Freq: Status: Active Protocol: Document 10/20/19 08:44 PANTERA (Rec: 10/20/19 08:54 PHOCALLIE [id number]) Electronically Signed By Pepe Fuller, PT 10/20/19 08:44 Subjective/History History History Pt is 59 yowf who presents with continued c/o B LE edema, R worse than L, for many years. She c/o pain in B LE, worse with increased edema. She has difficulty with transfers and ambulation at baseline due to multiple prior injuries. Her PMH includes TBI, CAD, pacemaker, multiple LE fxs with repairs, fibromyalgia, and DM-II. Subjective Subjective Currently pain is 3/10 in B lower legs. 2+ pitting edema noted to B feet. Lymphedema Eval Classification of Lymphedema Secondary Lymphedema Yes Stemmer's sign Stemmer's Sign yes Stage of Lymphedema Lymphedema stages Stage II (Pitting edema, increased fibrosis w/ decreased pitting) Skin Changes Dry Skin Yes: B lower legs Taut, Shiny Skin Yes Redness Yes: ant R chaparro Discoloration of Skin Yes Other Changes Yes Pain Scale Pain Scale (0-10) 3 Affected Extremities Areas Affected by Lymphedema/Edema Right Lower Extremity,Left Lower Extremity Manual Lymphatic Drainage Treatment Area MLD Treatment Area Right Lower Extremity,Left Lower Extremity Wound Problems/Impairments Impairments Problems/Impairmments Palpation Tenderness,Impaired Strength,Impaired Endurance, Impaired Gait Pattern,Impaired Walking,Impaired Standing, Impaired Recreational Activities,Increased Edema, Lymphedema Present,Subjective C/O Pain,Impaired Self Care/ Self Management Prognosis Rehab Potential Good Clinical Impression Consistent with Diagnosis Yes Short Term Goals Number of Weeks 4 Decreased Palpation Tenderness Yes: to min Decrease Edema Yes Decrease Subjective C/O Pain Yes: 2/10 Patient to Understand Lymphedema Yes Joel
--- NOTE | 2019-11-19 10:51 | HMH.RHREAS ---
Rehab Reassessment Rehab OP Re-assessment Start: 11/19/19 10:37 Freq: Status: Active Protocol: Document 11/19/19 10:38 PANTERA (Rec: 11/19/19 10:51 PANTERA [id number]) Electronically Signed By Pepe Fuller, PT 11/19/19 10:38 Rehab Re-assessment Subjective Subjective Pt reports her R lower leg continues to itch at times, but less than previous. Objective Objective Notes B LE with continued 2+ pitting edema, R > L. R ant chaparro remains mildly red with patchy irritation noted. Assessment Progress Assessment Progressing as Expected Assessment Notes Improving edema with less fibrotic tissue noted in B LE. Less redness from likely cellulitis on the R ant chaparro. Patient goals met ST,2,3,4,5 Goals Not Met LT,2,3,4,5,6 Revised Goals none Plan Plan Continue per initial POC. Frequency of Therapy 2 x/wk Duration of therapy 8 wks Time and Billing Re-Eval Time 15 Re-Eval Billing Units 1 PHYSICIAN CERTIFICATION: I certify the specified therapy services for Jaci Steiner are required, authorized, and reviewed every 30 days.
== END 2019-12-24 10:05 | disposition home or self-care (01) ==
LOC: PT 10:00
PROVIDERS: PCP Emergency Medicine; Visit Provider Emergency Medicine
DX: I89.0 Lymphedema, not elsewhere classified (principal); R60.0 Localized edema
CPT/HCPCS: 29580; 97140; 97162; 97164; 97760

== ENCOUNTER 2020-06-02 14:00 | Outpatient (RCR) | payer MEDICARE, BC, SELFPAY ==
--- NOTE | 2020-03-23 14:44 | HMH.PTOPWND ---
Rehab Outpt Wound Evaluation Rehab OP Wound Evaluation Start: 03/23/20 14:40 Freq: Status: Active Protocol: Document 03/23/20 14:40 PANTERA (Rec: 03/23/20 14:44 PHOCALLIE [id number]) Electronically Signed By Pepe Fuller, PT 03/23/20 14:40 Subjective/History History History Pt is 60 yowf who presents with c/o pain and edema in B LE, R worse than L, x 2-3 wks this episode with insidious onset of symptoms. She has long hx of edema for many years and has a lymphedema pumo for use at the personal intermediate where she resides. She reports pain has been worse in her knee and her foot on the R LE recently. Subjective Subjective Pt c/o pain 5/10 in R knee and foot, minimal tenderness to palpation. 3+ pitting edema noted to lateral R foot this date. Lymphedema Eval Classification of Lymphedema Secondary Lymphedema Yes Stemmer's sign Stemmer's Sign no Stage of Lymphedema Lymphedema stages Stage II (Pitting edema, increased fibrosis w/ decreased pitting) Skin Changes Dry Skin Yes Redness Yes Discoloration of Skin Yes Other Changes Yes Pain Scale Pain Scale (0-10) 5 Affected Extremities Areas Affected by Lymphedema/Edema Right Lower Extremity,Left Lower Extremity Manual Lymphatic Drainage Treatment Area MLD Treatment Area Right Lower Extremity,Left Lower Extremity Wound Problems/Impairments Impairments Problems/Impairmments Palpation Tenderness,Impaired Endurance,Impaired Transfers, Impaired Gait Pattern,Impaired Walking,Impaired Standing, Impaired Household Care, Impaired Recreational Activities,Increased Edema, Lymphedema Present,Subjective C/O Pain,Impaired Self Care/ Self Management Prognosis Rehab Potential Good Clinical Impression Consistent with Diagnosis Yes Short Term Goals Number of Weeks 4 Decreased Palpation Tenderness Yes: 1/4 Increase Ability to Stand
--- NOTE | 2020-04-26 16:32 | HMH.RHREAS ---
Rehab Reassessment Rehab OP Re-assessment Start: 04/26/20 16:28 Freq: Status: Active Protocol: Document 04/26/20 16:30 PANTERA (Rec: 04/26/20 16:32 PHOCALLIE [id number]) Electronically Signed By Pepe Fuller, PT 04/26/20 16:30 Rehab Re-assessment Subjective Subjective Pt states, I don't know why my leg breaks out on thright side. Objective Objective Notes Circumferential measurements: R LE -7.7 cm since initial eval. Assessment Progress Assessment Progressing as Expected Assessment Notes Less edema, but pitting does remain worse on R. Overall less pain. Some excoriation noted on anterior R leg, but pt does admit to scratching over her compression wraps. Patient goals met ST,2,3,4,5 Goals Not Met LT,2,3,4,5,6 Revised Goals none Plan Plan Continue per initial POC. Frequency of Therapy 2 x/wk Duration of therapy 8 wks Time and Billing Re-Eval Time 15 Re-Eval Billing Units 1 PHYSICIAN CERTIFICATION: I certify the specified therapy services for Jaci Steiner are required, authorized, and reviewed every 30 days.
--- NOTE | 2020-05-26 14:51 | HMH.RHREAS ---
Rehab Reassessment Rehab OP Re-assessment Start: 04/26/20 16:28 Freq: Status: Active Protocol: Document 05/26/20 14:42 PANTERA (Rec: 05/26/20 14:51 PANTERA [id number]) Electronically Signed By Pepe Fuller, PT 05/26/20 14:42 Rehab Re-assessment Subjective Subjective Pt reports she feels her R LE is swelling more and stays irritated in the front of her R chaparro. Objective Objective Notes Circumferential measurements: R LE is +6.7 cm since initial eval. Increased redness on anterior R chaparro. Assessment Progress Assessment Slower Than Expected Assessment Notes R LE remains more swollen over the past 2-3 wks for unknown reasons with increased erythema and irritation over the anterior R chaparro as ntoed previously. This area has had previous wounds and similar irritation in the past. Continues to need treatment for increased edema. Patient goals met ST,2,3,4,5 Goals Not Met LT,2,3,4,5,6 Revised Goals none Plan Plan Continue per initial POC. Frequency of Therapy 2 x/wk Duration of therapy 8 wks Time and Billing Re-Eval Time 15 Re-Eval Billing Units 0 PHYSICIAN CERTIFICATION: I certify the specified therapy services for Jaci Steiner are required, authorized, and reviewed every 30 days.
== END 2020-06-02 14:05 | disposition home or self-care (01) ==
LOC: PT 14:00
PROVIDERS: PCP Emergency Medicine; Visit Provider Emergency Medicine
DX: I89.0 Lymphedema, not elsewhere classified (principal); R60.0 Localized edema
CPT/HCPCS: 97140; 97162; 97164; 97760

== ENCOUNTER 2020-12-06 13:00 | Outpatient (RCR) | payer MEDICARE, BC, SELFPAY | END 2020-12-06 13:05 | disposition home or self-care (01) | LOC: PT 13:00 | PROVIDERS: PCP Emergency Medicine; Visit Provider Emergency Medicine | DX: I89.0 Lymphedema, not elsewhere classified (principal) | CPT/HCPCS: 97140; 97162; 97760 ==

== ENCOUNTER → 2020-12-23 10:17 | Outpatient (CLI) | payer MEDICARE, BC, SELFPAY ==
--- NOTE | 2020-12-23 10:21 | XR_ITS ---
PROCEDURE: XR KNEE LT 4V CLINICAL INDICATION: LT knee pain Patient has had multiple falls COMPARISON: No exams were available for comparison FINDINGS: No fracture or dislocation. No lytic or blastic change. There is normal mineralization. There is marked joint space narrowing both medially and laterally with mild osteophytic spurring of the medial and lateral joint compartments. The there is severe narrowing of the patellofemoral space with spurring of the superior and inferior borders of the patella. There is prominent hypertrophic spurring of the lateral femoral condyle posteriorly. IMPRESSION: Marked osteoarthritic changes of the knee as noted Dictated by: Dr. Mirza Merlos MD 12/23/2020 10:46 Dr. Mirza Merlos MD in [place] 12/23/2020 10:46
== END ==
PROVIDERS: PCP Emergency Medicine; Visit Provider Orthopaedic Surgery
DX: M25.562 Pain in left knee (principal)
CPT/HCPCS: 73564

== ENCOUNTER → 2021-03-10 10:43 | Outpatient (CLI) | payer MEDICARE, BC, SELFPAY ==
--- NOTE | 2021-03-10 10:48 | XR_ITS ---
FINAL REPORT CLINICAL HISTORY: knee pain post fall COMPARISON: 12/23/2020 FINDINGS: LEFT KNEE Four views demonstrate an oblique healing fracture of the distal femoral diaphysis. There is anterior and lateral displacement of the distal fracture fragments with posterior angulation. Finding is best seen on the lateral view. There are advanced hypertrophic changes of osteoarthritis at the lateral compartment joint space. There is subchondral sclerosis and osteophyte formation. IMPRESSION: Healing fracture of the distal femoral diaphysis with anterior and lateral displacement and posterior angulation. Reviewed, Interpreted and Dictated by Segundo Andrews MD Transcribed by Jannet Stoddard Authenticated by Segundo Andrews MD on 03/10/2021 01:19:54 PM [facility]
--- NOTE | 2021-03-10 11:45 | CT_ITS ---
FINAL REPORT TECHNIQUE: Axial images of the left lower extremity was performed without contrast. Sagittal coronal reformatted images were obtained and reviewed. This study was performed with techniques to keep radiation doses as low as reasonably achievable (ALARA). Individualized dose reduction techniques using automated exposure control or adjustment of mA and/or kV according to the patient's size were employed. CLINICAL HISTORY: EVALUATE FOR FEMUR FX FINDINGS: There is a healing, oblique displaced and angulated fracture of the distal femoral diaphysis. There is anterior and lateral displacement of the distal fracture fragments with posterior angulation. There is extensive callus formation at the margin of the fracture lines. Findings are all consistent with healing fracture. There is no intra-articular extension. There are moderate to advanced hypertrophic changes of osteoarthritis of the medial and lateral joint margins. There are prominent osteophytes along the undersurface of the patella. Incidental note is made of a fibroid uterus eccentric to the left. IMPRESSION: Healing displaced and angulated fracture of the distal femoral diaphysis with abundant callus formation. Changes of osteoarthritis of the knee. Reviewed, Interpreted and Dictated by Segundo Andrews MD Transcribed by Jannet Stoddard Authenticated by Segundo Andrews MD on 03/10/2021 01:19:43 PM [facility]
== END ==
PROVIDERS: PCP Emergency Medicine; Visit Provider Orthopaedic Surgery
DX: M25.562 Pain in left knee (principal); S72.92XA Unspecified fracture of left femur, initial encounter for closed fracture
CPT/HCPCS: 73564; 73700

== ENCOUNTER 2021-07-07 14:00 | Outpatient (RCR) | payer MEDICARE, BC, SELFPAY | END 2021-07-07 14:05 | disposition home or self-care (01) | LOC: PT 14:00 | PROVIDERS: PCP Emergency Medicine | DX: M25.562 Pain in left knee (principal); G89.29 Other chronic pain | CPT/HCPCS: 97110; 97163; 97164 ==

== ENCOUNTER 2021-08-30 13:52 | Emergency (ER) | payer MEDICARE, BC, SELFPAY ==
--- NOTE | 2021-08-30 14:10 | HMH.EDUTC ---
[facility] [place] Disposition Clinical Impression: Allergic reaction Qualifiers: Encounter type: initial encounter Qualified Code(s): T78.40XA - Allergy, unspecified, initial encounter Disposition: Home, Self-Care Condition on Discharge: Good Instructions: DI for General Allergic Reactions, Preventing the Spread of Coronavirus Discharge Instructions Additional Instructions: Take tylenol for pain or fever. Take the medications as directed. Follow up with your regular doctor. GO TO THE ER FOR ANY WORSENING SYMPTOMS Prescriptions: Permethrin [Elimite] 1 applicatio TP ONCE #1 gm Transmission Status: Received by [facility] methylPREDNISolone [Medrol] 4 mg PO DIRECTED 6 Days #21 packet Transmission Status: Received by [facility] Referrals: Didier Bueno MD [Primary Care Provider] - Forms: Work/School Release Time of Disposition: 14:43 Medical Decision Making - Medical Records Medical records reviewed: No: I reviewed the patient's medical records. - Moody Inquiry Pt receiving controlled substance: No Vital Signs: 08/30/21 14:26 08/30/21 14:53 Temperature 97.7 F 97.7 F Temperature Source Oral Oral Pulse Rate 74 Pulse Rate [Left Radial] 70 Respiratory Rate 17 18 Blood Pressure 112/74 Blood Pressure [Right Arm] 114/64 Blood Pressure Mean [Right Arm] 80 02 Sat by Pulse Oximetry 97 Oxygen Delivery Method Room Air Room Air Orders (Tests/Meds): ORDERS Category Date Time Status Covid-19 Nasal PCR ([facility]) Routine Lab 08/30/21 14:42 Ordered [facility] [place] HPI - General Stated complaint: Rash on rt side of body Time Seen by Provider: 08/30/21 14:10 - History of Present Illness Provider Complaint: she states that for the past 3 weeks she has had a generalized itchy rash. She states that the place she stay did have some bugs that were biting her, but these have been killed and she continues to have itching and rash. - Related Data Home Medications Medication Instructions Recorded Confirmed acetaminophen 500 mg tablet 500 mg PO Q4H PRN 02/19/17 03/10/21 Nortriptyline HCl 10 mg PO DAILY 06/20/17 03/10/21 Furosemide [Furosemide 40MG tAB*] 40 mg PO BID 12/30/17 03/10/21 Metoprolol Tartrate [Lopressor 100 200 mg PO BID 12/30/17 03/10/21 mg Tablets] Spironolactone [Spironolactone 25 mg PO DAILY 12/30/17 03/10/21 25mg Tablet] metformin 500 mg tablet 1,000 mg PO BID tab 08/12/18 03/10/21 Loperamide HCl [Loperamide] 2 mg PO Q3H PRN 02/24/19 03/10/21 Apixaban [Eliquis] 5 mg PO BID 08/28/19 03/10/21 Famotidine [Pepcid 20mg Tablet] 20 mg PO BID 08/28/19 03/10/21 atorvastatin 10 mg tablet 10 mg PO DAILY tab 01/19/20 03/10/21 loratadine 10 mg tablet 10 mg PO DAILY tab 01/19/20 03/10/21 oxcarbazepine 150 mg tablet 300 mg PO BID tab 04/19/20 03/10/21 duloxetine 60 mg capsule,delayed 60 mg PO DAILY cap 03/10/21 03/10/21 release Previous Rx's Medication Instructions Recorded digoxin 125 mcg (0.125 mg) tablet 125 mcg PO DAILY #30 tab 04/19/20 ondansetron HCl 4 mg tablet 4 mg PO Q6H PRN #120 tab 04/19/20 diltiazem HCl 240 mg capsule,24 480 mg PO DAILY #60 cap 01/26/21 hr,extended release Permethrin [Elimite] 1 applicatio TP ONCE #1 gm 08/30/21 methylPREDNISolone [Medrol] 4 mg PO DIRECTED 6 Days #21 08/30/21 packet Allergies Allergy/AdvReac Type Severity Reaction Status Date / Time celecoxib [From CELEBREX] Allergy Unknown Unknown Verified 03/10/21 10:24 allergy reaction hydrocodone [From VICODIN] Allergy Unknown Unknown Verified 03/10/21 10:24 allergy reaction oxycodone [OXYCODONE] Allergy Unknown Unknown Verified 03/10/21 10:24 allergy reaction red dye Allergy Unknown Unknown Verified 03/10/21 10:24 [From RED DYE (FOOD/DRUG)] allergy reaction tramadol [From ULTRAM] Allergy Unknown Unknown Verified 03/10/21 10:24 allergy reaction Iodinated Contrast Media AdvReac Intermediate ITC
[2021-08-30 14:26] VITALS: BP 114/64; PULSE 70; RESP 17; TEMP 36.5; O2SAT 97; BMI 34.4
[2021-08-30 14:53] VITALS: BP 112/74; PULSE 74; RESP 18; TEMP 36.5; O2SAT 98
== END 2021-08-30 14:54 | disposition home or self-care (01) ==
PROVIDERS: Emergency Provider Nurse Practitioner Family; PCP Emergency Medicine
DX: T78.40XA Allergy, unspecified, initial encounter (principal)
CPT/HCPCS: 99212; G0463

== ENCOUNTER 2021-10-06 13:00 | Outpatient (RCR) | payer MEDICARE, BC, SELFPAY | END 2021-10-06 13:05 | disposition home or self-care (01) | LOC: PT 13:00 | DX: I89.0 Lymphedema, not elsewhere classified (principal) | CPT/HCPCS: 97140; 97162; 97164; 97760 ==

== ENCOUNTER → 2021-10-20 14:01 | Outpatient (CLI) | payer MEDICARE, BC, SELFPAY ==
--- NOTE | 2021-10-20 14:05 | XR_ITS ---
FINAL REPORT CLINICAL HISTORY: knee pain FINDINGS: RIGHT KNEE Three views of the right knee reveal no evidence of fracture or dislocation. The bony alignment is normal. There are moderate and severe degenerative changes. There is no evidence of joint effusion. There is soft tissue calcifications anteromedially. IMPRESSION: Moderate and severe degenerative change with no acute bony abnormality. Reviewed, Interpreted and Dictated by Juaquin Moreno III, MD Transcribed by Jewels Rodriguez Authenticated and [facility]
--- NOTE | 2021-10-20 14:05 | XR_ITS ---
FINAL REPORT CLINICAL HISTORY: femur pain FINDINGS: LEFT FEMUR 2 views were obtained. There is no acute fracture or dislocation. There is a chronic fracture of the distal femur with deformity. There are severe degenerative changes of the knee. There is no soft tissue abnormality. IMPRESSION: Degenerative and chronic findings with no acute bony abnormality. Reviewed, Interpreted and Dictated by Juaquin Moreno III, MD Transcribed by Jewels Rodriguez Authenticated and [facility]
== END ==
PROVIDERS: PCP Emergency Medicine; Visit Provider Orthopaedic Surgery
DX: M89.8X5 Other specified disorders of bone, thigh (principal); M25.561 Pain in right knee
CPT/HCPCS: 73552; 73562

== ENCOUNTER 2021-10-26 10:51 | Inpatient (IN) | payer MEDICARE, BC, SELFPAY ==
[2021-10-26] VITALS (20 sets, daily range): BP systolic 94–128; BP diastolic 57–87; PULSE 70–147; RESP 16–20; TEMP 36.6–37.1; O2SAT 95–100; BMI 34.7; BMI 34.0
--- NOTE | 2021-10-26 | CA_ITS ---
APPROVED REPORT EXAM: Comprehensive 2D, Doppler, and color-flow Echocardiogram Processing Rep: LENARD Newton, RVS Ht: 5 ft 2 in Wt: 190lbs BSA: 1.87 BP: 108/73 mmHg Rhythm: Atrial Fibrillation Indications: Aflutter, Afib, Pacer, HTN, DM 2D Dimensions IVSd 0.91 cm F: 0.6-1.0 LVEF (Visual) 57.80 % PWd 0.85 cm F: 0.6 - 1.0 LA Volume 79.40 mL LVDd 4.74 cm F: 3.9 - 5.3 LA Volume Index 42.45 mL/m2 (M/F) 16-34 LVDs 3.30 cm F: 2.2 - 3.5 Aortic Root 2.58 cm F: 2.7 - 3.3 Left Atrium 4.06 cm F: 2.7 - 3.8 LVOT 1.76 cm (M/F) 1.5-2.5 M-Mode Dimensions LA Diam 5.18 cm (1.9-4.0) Ao Diam 3.00 cm (2.0-3.7) EPSs 0.81 cm LV Diastology E Decel Time 160.00 (160-240 msec) Aortic Valve LVOT Max 92.00 (70-110 cm/s) LVOT VTI 17.55 cm AoV Peak Pradip. 132.00 (50-130 cm/s) AI PHT 573.00 ms AO Peak GR. 7.00 mmHg AO Mean GR. 3.60 (<5 mmHg) AO VTI 25.15 (18-25 cm) PINA (VTI) 1.70 (2.5-4.5 cm2) Mitral Valve MV E Max Pradip. 147.00 (40-130 cm/s) MV Decel. Time 160.00 (160-240 ms) MV Mean Gr. 3.90 (<2mmHg) MV PHT 47.00 ms Pulmonary Valve PV Peak Velocity 68.00 (50-150 cm/s) DE End VMAX 194.00 cm/s Tricuspid Valve TR P. Velocity 266.00 cm/s RAP Estimate 10.00 mmHg RVSP 38.30 mmHg Left Ventricle Left atrium is moderately enlarged, left ventricle is normal size mild concentric left ventricular hypertrophy, estimated ejection fraction 45%, there is abnormal septal motion, diastolic parameters are inconclusive, Doppler evidence of raise left ventricular end-diastolic pressure. Right Ventricle Right atrium and right ventricle mildly enlarged with normal contractility, pacemaker leads in the right ventricle. Aortic Valve Aortic valve is thickened and calcified there is no aortic stenosis, there is mild aortic insufficiency. Mitral Valve Mitral valve leaflets are minimally thickened, there is mild mitral regurgitation. Tricuspid Valve Tricuspid valve is grossly normal, there is mild tricuspid regurgitation, calculated right ventricular systolic pressure 38 mmHg. Pulmonic Valve Pulmonic valve is poorly visualized. Great Vessels Aortic root is normal size. Inferior vena cava is poorly visualized. Pericardium No significant pericardial effusion noted. Conclusion 1. Biatrial enlargement, normal left ventricular size, estimated ejection fraction 45% with no regional wall motion abnormality, there is abnormal septal motion, diastolic parameters are inconclusive, Doppler evidence of raise left ventricular end-diastolic pressure. 2. Mildly enlarged right ventricle with normal contractility. 3. Mild aortic, mild mitral and tricuspid regurgitation. 4. No significant pericardial effusion noted. 5. Inferior vena cava is poorly visualized. Electronically signed by : Tano Shannon MD 10/27/2021 08:54:26
--- NOTE | 2021-10-26 11:03 | ECG_ITS ---
APPROVED REPORT Exam: Resting ECG HR:144 bpm ECG Measurements Heart Rate 144 AXES AK 160 P 113 QRSd 89 QRS 3 QT 321 T 31 QTc 404 Conclusion SINUS TACHYCARDIA, POSSIBLE ATRIAL FLUTTER POSSIBLE RIGHT VENTRICULAR CONDUCTION DELAY [RSR (QR) IN V1/V2] ST DEVIATION AND MODERATE T-WAVE ABNORMALITY, CONSIDER ANTERIOR ISCHEMIA [-0.1+ mV T-WAVE IN V3/V4] ABNORMAL ECG UNCONFIRMED REPORT Electronically signed by : Atif Peres MD 10/26/2021 19:23:36
--- NOTE | 2021-10-26 11:05 | PC.NURSE ---
IV established and blood sent to the lab
--- NOTE | 2021-10-26 11:10 | XR_ITS ---
FINAL REPORT CLINICAL HISTORY: rapid heart rate COMPARISON: 08/28/2019 FINDINGS: A single view of the chest was obtained. There is cardiomegaly. A right subclavian pacemaker is present. There is mild bibasilar atelectasis. There is no pneumothorax. There is no acute osseous abnormality. IMPRESSION: Mild bibasilar atelectasis. Reviewed, Interpreted and Dictated by Juaquin Moreno III, MD Transcribed by Josette Mcnulty Authenticated and [facility]
--- NOTE | 2021-10-26 11:12 | PC.NURSE ---
portable xr at the bedside
--- NOTE | 2021-10-26 11:13 | HMH.EDGENADL ---
Discharge Plan Disposition Patient Disposition: Admitted As Inpatient Condition: Fair Clinical Impressions Clinical Impression: Atrial flutter Discharge ED Provider: Robert Sanchez General Adult HPI General Chief complaint: Chest Pain Stated complaint: Dr. Bueno sent for HR Time Seen by Provider: 10/26/21 11:16 History of Present Illness HPI narrative: Patient states that she is sent here from [facility] because they were concerned about my heart racing for the past couple of days . She says that she had some brief chest pains this morning. She does not really feel her heart racing. She denies shortness of breath or syncope. She has a history of atrial fibrillation/flutter. She has a pacemaker which she says was inserted here 6 years ago. She says that she had a cardiac ablation March 23 at [facility] in [place]. Related Data Home Medications Medication Instructions Recorded Confirmed nortriptyline 10 mg capsule 10 mg PO HS Depression 06/20/17 10/26/21 furosemide 40 mg tablet 40 mg PO BID Fluid 12/30/17 10/26/21 metoprolol tartrate 100 mg tablet 200 mg PO BID HEART RATE 12/30/17 10/26/21 spironolactone 25 mg tablet 25 mg PO DAILY DIURETIC 12/30/17 10/26/21 metformin 500 mg tablet 1,000 mg PO BID Diabetes 08/12/18 10/26/21 apixaban 5 mg tablet 5 mg PO BID AFIB 08/28/19 10/26/21 famotidine 20 mg tablet 20 mg PO BID GERD 08/28/19 10/26/21 atorvastatin 10 mg tablet 10 mg PO DAILY Cholesterol 01/19/20 10/26/21 loratadine 10 mg tablet 10 mg PO DAILY allergies 01/19/20 10/26/21 oxcarbazepine 150 mg tablet 300 mg PO BID SEIZURES 04/19/20 10/26/21 duloxetine 60 mg capsule,delayed 90 mg PO DAILY Depression 03/10/21 10/26/21 release Allergies Allergy/AdvReac Type Severity Reaction Status Date / Time celecoxib [From CELEBREX] Allergy Unknown Unknown Verified 10/20/21 13:32 allergy reaction hydrocodone [From VICODIN] Allergy Unknown Unknown Verified 10/20/21 13:32 allergy reaction oxycodone [OXYCODONE] Allergy Unknown Unknown Verified 10/20/21 13:32 allergy reaction red dye Allergy Unknown Unknown Verified 10/20/21 13:32 [From RED DYE (FOOD/DRUG)] allergy reaction tramadol [From ULTRAM] Allergy Unknown Unknown Verified 10/20/21 13:32 allergy reaction Iodinated Contrast Media AdvReac Intermediate ITCHING Verified 10/20/21 13:32 [IODINATED CONTRAST MEDIA - ORAL AND] PFSH PFSH Medical History (Updated 10/26/21 @ 11:47 by Robert Sanchez MD) HHD (hypertensive heart disease) Social History Smoking Status: Never smoker alcohol intake: never counseling provided: none substance use type: denies use current occupational status: disabled Travel in the last 8 weeks: None household members: other housing: assisted living facility number of children: 0 current occupational exposures/hazards: No caffeine: No ROS Obtained: Yes All systems reviewed & no additional complaints except as documented Constitutional Constitutional: Reports system reviewed and no additional complaints, except as documented, Denies headache(s) and Denies weakness ENT Ears, Nose, Mouth, and Throat: Denies headache(s), Denies nasal discharge and Denies sore throat Cardiovascular Cardiovascular: Denies chest pain and Reports rapid heart rate Respiratory Respiratory: Denies shortness of breath and Denies cough Gastrointestinal Gastrointestingal: Denies abdominal pain, constipation, diarrhea or vomiting Genitourinary Female Genitourinary: Denies difficulty voiding, Denies dysuria and Denies flank pain Musculoskeletal Musculoskeletal: Denies numbness Neurologic Neurologic: Denies headache(s), Denies numbness and Denies weakness Physical Exam General General appearance: alert and in no apparent distress Head Head exam: atraumatic and normocephalic Eye Eye exam: Present normal appearance and
--- NOTE | 2021-10-26 11:18 | PC.NURSE ---
at the bedside
[2021-10-26 11:19] LABS: Chloride 102 mmol/L (98-107); Potassium 3.4 mmoL/L (3.5-5.1); Sodium 142 mmol/L (136-145)
[2021-10-26 11:21] LABS: Basophils # 0.1 K/mm3 (0-0.2); Basophils % 1.8 % (0.1-2.0); Blood Urea Nitrogen 12 mg/dl (7-17); Creatinine Clearance Estimated 80 mL/min (50-200); Eosinophils # 0.2 K/mm3 (0.0-0.4); Eosinophils % 3.2 % (0.1-12.0); Estimated Glomerular Filt Rate 85 ml/min (>60); GFR (African American) 103 ML/MIN (>60); Hematocrit 35.5 % (37.0-47.0); Hemoglobin 11.3 g/dL (12.2-16.2); Lymphocytes # 1.8 K/mm3 (0.7-4.5); Lymphocytes % 23.5 % (10-50); Mean Corpuscular HGB Conc 31.8 g/dL (31.8-35.4); Mean Corpuscular Hemoglobin 26.8 pg (27.0-31.2); Mean Corpuscular Volume 84.1 fl (81-99); Mean Platelet Volume 8.8 fl (7.4-10.4); Monocytes # 0.6 K/mm3 (0.1-1.0); Monocytes % 7.5 % (1.7-9.3); Neutrophils # 4.8 K/mm3 (1.8-7.8); Platelet Count 272 K/mm3 (142-424); Red Blood Count 4.22 M/mm3 (4.20-5.40); Red Cell Distribution Width 15.7 % (11.5-17.5); White Blood Count 7.5 K/mm3 (4.8-10.8)
[2021-10-26 11:22] LABS: Alanine Aminotransferase 67 U/L (12-78); Albumin Level 3.8 g/dl (3.5-5.0); Albumin/Globulin Ratio 1.3 (1.1-1.8); Alkaline Phosphatase 136 U/L (38-126); Anion Gap 12.4 mEq/L (5-15); Aspartate Amino Transferase 30 U/L (14-36); Calcium 7.8 mg/dl (8.4-10.2); Carbon Dioxide 31 mmol/L (22.0-30.0); Glucose 164 mg/dl (74-100); Total Protein,Serum 6.8 g/dl (6.3-8.2)
[2021-10-26 11:25] LABS: Bilirubin,Total < 0.1 mg/dl (0.2-1.3)
[2021-10-26 11:39] LABS: T4 (Thyroxine) 7.3 ug/dl (5.53-11.0)
[2021-10-26 11:40] LABS: Troponin I < 0.01 ng/ml (0.00-0.034)
--- NOTE | 2021-10-26 11:46 | PC.NURSE ---
Sanford Peñaloza from cardiology in room with patient.
[2021-10-26 11:53] LABS: Thyroid Stimulating Hormone 3.15 uIU/mL (0.465-4.68)
--- NOTE | 2021-10-26 11:59 | EXP.CARD.CON ---
History of Present Illness History of Present Illness Consult date: 10/26/21 Requesting physician: Didier Bueno Consult reason: atrial fibrillation Chief complaint: Palpitations, SOA/CP Additional Medical History:: 1. History of atrial fibrillation A. History of [facility] pacemaker insertion, 05/18/2016 B. History of ablation for atrial fibrillation, March 2021, [facility], [place], [place], Dr. Ceja C. Anticoagulation with apixaban therapy 2. Hypertension A. Echocardiogram, 2018, normal EF 3. Hyperlipidemia 4. Chronic lymphedema 5. Diabetes mellitus 6. Lexiscan Myoview, 2019, no ischemia with normal EF. History of present illness: HPI narrative: Patient states that she is sent here from [facility] because they were concerned about my heart racing for the past couple of days .? She says that she had some brief chest pains this morning.? She does not really feel her heart racing.? She denies shortness of breath or syncope. She has a history of atrial fibrillation/flutter.? She has a pacemaker which she says was inserted here 6 years ago.? She says that she had a cardiac ablation March [address] [facility] in [place]. The above per HAILEY Manning MD Cardiology consulted for but appears to be atrial flutter with a rapid ventricular response in the 140 bpm range. Patient is on max dose of metoprolol, diltiazem and digoxin (dig level 0.4 today). Blood pressure is approximately 110-120 mmHg. In light of the history of A. fib ablation and pacemaker in situ, will start amiodarone therapy to try to gain rate control and possibly chemical cardioversion. [facility] PFS Medical History (Updated 10/26/21 @ 11:47 by Robert Sanchez MD) HHD (hypertensive heart disease) Social History Smoking Status: Never smoker alcohol intake: never counseling provided: none substance use type: denies use current occupational status: disabled Travel in the last 8 weeks: None household members: other housing: assisted living facility number of children: 0 current occupational exposures/hazards: No caffeine: No Review of Systems Constitutional Constitutional: Denies headache(s) and Denies weakness ENT Ears, Nose, Mouth, and Throat: Denies headache(s) *Musculoskeletal Musculoskeletal: Denies numbness *Neurologic Neurologic: Denies headache(s), Denies numbness and Denies weakness Exam Data for Last 24 hours Vital signs and Labs for Last 24 Hours: Temp Pulse Resp BP Pulse Ox 98.7 F 147 H 19 108/73 L 98 10/26/21 10:52 10/26/21 11:30 10/26/21 11:30 10/26/21 11:30 10/26/21 11:30 Laboratory Results - last 24 hr 10/26/21 11:05: WBC 7.5, RBC 4.22, Hgb 11.3 L, Hct 35.5 L, MCV 84.1, MCH 26.8 L, MCHC 31.8, RDW 15.7, Plt Count 272, MPV 8.8, Neut % (Auto) 64.0, Lymph % (Auto) 23.5, Prowers % (Auto) 7.5, Eos % (Auto) 3.2, Baso % (Auto) 1.8, Neut # (Auto) 4.8, Lymph # (Auto) 1.8, Prowers # (Auto) 0.6, Eos # (Auto) 0.2, Baso # (Auto) 0.1 10/26/21 11:05: Sodium 142, Potassium 3.4 L, Chloride 102, Carbon Dioxide 31 H, Anion Gap 12.4, BUN 12, Creatinine 0.70, Estimated Creat Clear 80, Estimated GFR 85, Est GFR ( Amer) 103, Glucose 164 H, Calcium 7.8 L, Total Bilirubin < 0.1 L, AST 30, ALT 67, Alkaline Phosphatase 136 H, Troponin I < 0.01, Total Protein 6.8, Albumin 3.8, Globulin 3.0, Albumin/Globulin Ratio 1.3, TSH 3.15, Thyroxine (T4) 7.3 10/26/21 11:05: Digoxin 0.40 I & O for Last 24 hours: Intake & Output 10/23/21 10/24/21 10/25/21 10/26/21 11:59 11:59 11:59 11:59 Weight 190 lb Constitutional Constitutional: no acute distress *Routine Respiratory Exam Respiratory: Present CTA bilaterally *Routine Cardiovascular Exam Cardiovascular: Present tachycardia and irregularly irregular; Absent murmur, gallop or rubs *Routine Extremities Exam Extremities: Present edema *Routine Neurological Exam Neurological: Present alert,
--- NOTE | 2021-10-26 12:03 | PC.NURSE ---
contacted pharmacy to request they prepare amiodarone bolus and drip, spoke with karime, states he would mix it and bring it down.
--- NOTE | 2021-10-26 12:08 | PC.NURSE ---
Addendum entered by Isi Irving RN 10/26/21 12:12: home medication reconcilled in the computer at this time. Original Note: medication list confirmed with [facility] staff member Crissy (instructional aide). States she attempted to fax list but list wasn't going throught
[2021-10-26 12:22] LABS: Coronavirus 19, PCR Not Detected (NotDetected); Influenza A, PCR Not Detected (NotDetected); Influenza B, PCR Not Detected (NotDetected)
--- NOTE | 2021-10-26 12:22 | PC.NURSE ---
pt c/o sudden onset of dizziness, chest painl, headache states it started when you started my medication drip rate slowed to 300cc/hr
--- NOTE | 2021-10-26 12:24 | PC.NURSE ---
attempted to contact care management for admission, no answer. Notified maintenance worker house trailer of admission and that pt would need a step down bed r/t amiodarone drip. fireworks assembly supervisor states she will have to rearrange pts to get a step down room open for pt. States she will let us know when a room is available.
[2021-10-26 12:33] LABS: POC Glucose,Bedside 204 (70-110)
--- NOTE | 2021-10-26 12:40 | PC.NURSE ---
2nd iv started rt ac. 20g angio
--- NOTE | 2021-10-26 12:51 | PC.NURSE ---
pt given lunch tray
--- NOTE | 2021-10-26 14:11 | ECG_ITS ---
APPROVED REPORT Exam: Resting ECG HR:69 bpm ECG Measurements Heart Rate 69 AXES NV 214 P 108 QRSd 92 QRS -9 QT 393 T 27 QTc 413 Conclusion ELECTRONIC ATRIAL PACEMAKER INCOMPLETE RIGHT BUNDLE BRANCH BLOCK [90+ ms QRS DURATION, TERMINAL R IN V1/V2, 40+ ms S IN I/aVL/V4/V5/V6] NONSPECIFIC ST & T-WAVE ABNORMALITY ABNORMAL RHYTHM ECG UNCONFIRMED REPORT Electronically signed by : Atif Peres MD 10/26/2021 19:22:25
--- NOTE | 2021-10-26 14:57 | PC.NURSE ---
report called to floor
[2021-10-26 14:58] LABS: Troponin I < 0.01 ng/ml (0.00-0.034)
--- NOTE | 2021-10-26 15:26 | EXP.PHA.VTE ---
[facility] Pharmacy VTE Monitoring Patient Demographics Admission date: 10/26/21 Report Date: 10/26/21 Time: 15:26 Patient Allergies celecoxib [From CELEBREX] Allergy (Unknown, Verified 10/20/21 13:32) Unknown allergy reaction hydrocodone [From VICODIN] Allergy (Unknown, Verified 10/20/21 13:32) Unknown allergy reaction oxycodone [OXYCODONE] Allergy (Unknown, Verified 10/20/21 13:32) Unknown allergy reaction red dye [From RED DYE (FOOD/DRUG)] Allergy (Unknown, Verified 10/20/21 13:32) Unknown allergy reaction tramadol [From ULTRAM] Allergy (Unknown, Verified 10/20/21 13:32) Unknown allergy reaction Iodinated Contrast Media [IODINATED CONTRAST MEDIA - ORAL AND] Adverse Reaction (Intermediate, Verified 10/20/21 13:32) ITCHING Height: 1.57 m Weight: 86.183 kg Current Active Problems (Updated 10/26/21 @ 11:47 by Robert Sanchez MD) Atrial flutter (Acute) Diabetes (Chronic) Chest pain (Acute) Cardiac pacemaker in situ (Chronic) Lymphedema (Chronic) HHD (hypertensive heart disease) (Chronic) HLD (hyperlipidemia) (Chronic) HTN (hypertension) (Chronic) Tachycardia (Acute) VTE Risk Labs: VTE Related Lab Results Hgb 11.3 g/dL (12.2-16.2) L 10/26/21 11:05 Hct 35.5 % (37.0-47.0) L 10/26/21 11:05 Plt Count 272 K/mm3 (142-424) 10/26/21 11:05 BUN 12 mg/dl (7-17) 10/26/21 11:05 Creatinine 0.70 mg/dl (0.52-1.04) 10/26/21 11:05 Estimated Creat Clear 80 mL/min (50-200) 10/26/21 11:05 Prophylaxis VTE Prophylaxis Ordered?: Yes Types of VTE Prophylaxis: Pharmacological Pharmacologic Type: Other (ELIQUIS)
--- NOTE | 2021-10-26 15:40 | INFXCTL.NOTE ---
pt going up with RN and lorena at this time
--- NOTE | 2021-10-26 15:46 | PC.NURSE ---
pt arrived to the floor at this time
[2021-10-26 17:22] LABS: POC Glucose,Bedside 223 (70-110)
--- NOTE | 2021-10-26 18:27 | PC.NURSE ---
Pt is alert and oriented x4. Lungs are clear, she remains on RA and tolerating well. Rash noted to right lower back down onto right buttocks. Pt states she went to the [facility] for it and it's been there for a while. + 2/3 edema to ble with erythema noted to rle. Amiodarone gtt infusing per protocol. She's been paced on telemetry. Her personal walker and IPAD is at bedside. She denied any complaints at this time. Bed is locked and in the lowest position, call light is within reach.
[2021-10-26 18:57] LABS: Troponin I < 0.01 ng/ml (0.00-0.034)
--- NOTE | 2021-10-26 20:07 | PC.NURSE ---
Pt BP since arriving to shift has been soft, pt is ordered metoprolol 200mg at 2100, BP at 1999 is 102/69, 1900 BP was 99/61. Called MD church communications administrator for [employer]. Reba madrigal stated to go ahead and give metoprolol 200mg as ordered, Reba stated that if pt systolic BP remains <65 more than 30 minutes manually give 500 cc bolus over 1 hour. Will follow MD orders.
[2021-10-26 20:23] LABS: POC Glucose,Bedside 136 (70-110)
[2021-10-27] VITALS (8 sets, daily range): BP systolic 98–117; BP diastolic 61–76; PULSE 70–74; RESP 15–21; TEMP 36.6–37; O2SAT 96–100; BMI 34.9
[2021-10-27 05:20] LABS: POC Glucose,Bedside 121 (70-110)
--- NOTE | 2021-10-27 05:34 | PC.NURSE ---
Pt is alert and oriented x4, pt has had no complaints this shift. Pt lung sounds are clear. Pt abdomen soft and nontender, bowel sounds active. Pt has used the BSC with 1 assist this shift. Pt HR 69-72. SBP 94-110. Pt O2 sat >90% on room air. Tele shows paced. BLE 2+ edema. Pt does have rash on right lower back into her buttock area. Pt has been awake through most of the shift. Pt is ACHS FS, pt has not required any coverage per protocol. Call light in reach and working.
--- NOTE | 2021-10-27 08:46 | SW/DCPLANNER ---
Addendum entered by Judith Kan 10/27/21 14:07: [employer] has been arranged for this patient. Addendum entered by Judith Kan 10/27/21 12:39: This patient will discharge today. I have updated Kaur fontenot/ Juan Yip. I will arrange [employer] at discharge. Original Note: This patient currently resides at [facility]. The plan for this patient is to return to [place] tomorrow pending no setbacks. I have updated Kaur fontenot/ Juan and she concurs with this plan and is fine with patient returning once medically stable for discharge. Per Kaur patient does NOT need a COVID swab prior to returning.
--- NOTE | 2021-10-27 08:48 | EXP.HP ---
History of Present Illness *Admission Date: 10/26/21 [facility] Medical History (Updated 10/26/21 @ 16:11 by Alea Roy RN) Arrhythmia Arthritis Congestive heart failure Coronary artery disease Gallbladder disease HHD (hypertensive heart disease) History of gastroesophageal reflux (GERD) History of left heart catheterization History of pacemaker Migraine Surgical History (Updated 10/26/21 @ 16:11 by Alea Roy RN) H/O arthroscopy of right knee Hx laparoscopic cholecystectomy Family History (Updated 10/26/21 @ 16:10 by Alea Roy RN) Other No significant family history Social History (Updated 10/26/21 @ 16:12 by Alea Roy RN) Smoking Status: Never smoker alcohol intake: never counseling provided: none substance use type: denies use current occupational status: disabled Travel in the last 8 weeks: None household members: other housing: assisted living facility lives independently: No marital status: single number of children: 0 current occupational exposures/hazards: No caffeine: No Review of Systems Constitutional Constitutional: Denies headache(s) and Denies weakness ENT Ears, Nose, Mouth, and Throat: Denies headache(s) *Musculoskeletal Musculoskeletal: Denies numbness *Neurologic Neurologic: Denies headache(s), Denies numbness and Denies weakness Meds Home Medications and Allergies Home Medications Medication Instructions Recorded Confirmed Type nortriptyline 10 mg capsule 10 mg PO HS Depression 06/20/17 10/26/21 History furosemide 40 mg tablet 40 mg PO BID Fluid 12/30/17 10/26/21 History metoprolol tartrate 100 mg tablet 200 mg PO BID HEART RATE 12/30/17 10/26/21 History spironolactone 25 mg tablet 25 mg PO DAILY DIURETIC 12/30/17 10/26/21 History metformin 500 mg tablet 1,000 mg PO BID Diabetes 08/12/18 10/26/21 History apixaban 5 mg tablet 5 mg PO BID AFIB 08/28/19 10/26/21 History famotidine 20 mg tablet 20 mg PO BID GERD 08/28/19 10/26/21 History atorvastatin 10 mg tablet 10 mg PO DAILY Cholesterol 01/19/20 10/26/21 History loratadine 10 mg tablet 10 mg PO DAILY allergies 01/19/20 10/26/21 History oxcarbazepine 150 mg tablet 300 mg PO BID SEIZURES 04/19/20 10/26/21 History duloxetine 60 mg capsule,delayed 90 mg PO DAILY Depression 03/10/21 10/26/21 History release New Prescriptions to Start Prescriptions: Allergies Allergy/AdvReac Type Severity Reaction Status Date / Time celecoxib [From CELEBREX] Allergy Unknown Unknown Verified 10/26/21 15:46 allergy reaction hydrocodone [From VICODIN] Allergy Unknown Unknown Verified 10/26/21 15:46 allergy reaction oxycodone [OXYCODONE] Allergy Unknown Unknown Verified 10/26/21 15:46 allergy reaction red dye Allergy Unknown Unknown Verified 10/26/21 15:46 [From RED DYE (FOOD/DRUG)] allergy reaction tramadol [From ULTRAM] Allergy Unknown Unknown Verified 10/26/21 15:46 allergy reaction Iodinated Contrast Media AdvReac Intermediate ITCHING Verified 10/26/21 15:46 [IODINATED CONTRAST MEDIA - ORAL AND] Exam Data for Last 24 hours Vital signs and Labs for Last 24 Hours: Temp Pulse Resp BP Pulse Ox 97.8 F 71 19 98/61 L 99 10/27/21 04:00 10/27/21 08:00 10/27/21 08:00 10/27/21 08:00 10/27/21 08:00 Laboratory Results - last 24 hr 10/26/21 11:05: WBC 7.5, RBC 4.22, Hgb 11.3 L, Hct 35.5 L, MCV 84.1, MCH 26.8 L, MCHC 31.8, RDW 15.7, Plt Count 272, MPV 8.8, Neut % (Auto) 64.0, Lymph % (Auto) 23.5, Lyman % (Auto) 7.5, Eos % (Auto) 3.2, Baso % (Auto) 1.8, Neut # (Auto) 4.8, Lymph # (Auto) 1.8, Lyman # (Auto) 0.6, Eos # (Auto) 0.2, Baso # (Auto) 0.1 10/26/21 11:05: Sodium 142, Potassium 3.4 L, Chloride 102, Carbon Dioxide 31 H, Anion Gap 12.4, BUN 12, Creatinine 0.70, Estimated Creat Clear 80, Estimated GFR 85, Est GFR ( Amer) 103, Glucose 164 H, Calcium 7.8 L, Total Bilirubin < 0.1 L, AST 30, ALT 67, Al
--- NOTE | 2021-10-27 09:13 | CA_ITS ---
FINAL REPORT TECHNIQUE: Sonographic images of the veins of the right upper extremity were obtained from axilla to antecubital fossa. Additionally, images of the internal jugular vein and subclavian vein were also obtained. CLINICAL HISTORY: Edema,PAIN,PT HAS IV IN RT AC FINDINGS: The veins of the right upper extremity are compressible from axilla to antecubital fossa. Blood flow is demonstrated by both color and spectral Doppler as well. The internal jugular vein and subclavian vein are also patent. IMPRESSION: No evidence of venous thrombosis of the right upper extremity. Reviewed, Interpreted and Dictated by Juaquin Moreno III, MD Transcribed by Jewels Rodriguez Authenticated and [facility]
--- NOTE | 2021-10-27 09:35 | P.CONPHA_ITS ---
Pharmacy Intervention Comments: MEDICATION RECONCILIATION COMPLETED ON PATIENT USING MAR FROM [facility]. -HASMUKH ARMSTRONG, MARYELLEND
--- NOTE | 2021-10-27 09:35 | HMH.PHAINT1 ---
Pharmacy Intervention Comments: MEDICATION RECONCILIATION COMPLETED ON PATIENT USING MAR FROM [facility]. -HASMUKH ARMSTRONG, MARYELLEND
--- NOTE | 2021-10-27 10:42 | HMH.PTEV ---
Physical Therapy Evaluation Rehab PT IP Evaluation Start: 10/27/21 08:26 Freq: ONCE Status: Active Protocol: Document 10/27/21 10:00 PHOCALLIE (Rec: 10/27/21 10:41 PHORNE [id number]) Subjective/History History History 61 yowf adm to [facility] with a-fib and RVR. She reports feeling much better now. She resides at a personal [facility] and is generally independent with all mobility using RW. She has hx of B LE lymphedema. Subjective Subjective Pt with no c/o this am. Rehab PT IP Eval Objective Appearance Patient Behavior Appropriate Patient Orientation Person,Place,Time Difficulty following instructions none Speech Pattern Clear Ambulation Patient Able to Ambulate Yes Ambulation Observation IP General Gait Pattern Observation Shuffling Step Ambulation Distance (feet) 75 Ambulation Assistive Device Rolling Walker Ambulation Ability Supervision/Stand by Balance Ability to Arise Able, uses arms to help Sitting Balance Steady, safe Standing Balance Steady, wide stance Dynamic Sitting Balance Ability Good Dynamic Standing Balance Ability Fair Transfers Bed Transfer Ability Supervision/Stand by Chair Transfer Ability Supervision/Stand by Sit to Stand Bed Transfer Ability Supervision/Stand by Sit to Stand Chair Transfer Ability Supervision/Stand by Rehab PT IP prob,goals,plan Problems Date of Evaluation: 10/27/21 Discharge Plan PT Discharge Plan Pt appears to be at baseline for all mobility at this time and is appropriate to return to personal mcc once medically stable. G -code Required No Eval Complexity Eval Charge Codes 08118 - Moderate Complexity PHYSICIAN CERTIFICATION: I certify the specified therapy services for Jaci Steiner are required, authorized, and reviewed every 30 days.
--- NOTE | 2021-10-27 10:55 | PC.NURSE ---
Amiodarone gtt STOPPED per Myrna Cedeño
--- NOTE | 2021-10-27 11:11 | EXP.CARD.PN ---
Subjective Subjective Date: 10/27/21 Time: 10:30 Principal diagnosis: afib Interval history: This is a 61-year-old white female who presented to the emergency department from [facility] because they were concerned about her heart racing for the last couple of days. The patient was found to be in atrial fibrillation with RVR at around 140 bpm. The patient does have a history of atrial fibrillation/flutter. She has a pacemaker and is well and has underwent cardiac ablation in the past. The patient was on metoprolol, diltiazem and digoxin when she went into atrial fibrillation with RVR. The patient has been started on amiodarone therapy and she did convert to sinus rhythm. She remains on IV amiodarone this morning and has been given her first oral dose of amiodarone as well. She denies any chest pain or pressure. She denies any shortness of breath. She states the racing of her heart has resolved. She has chronic lower extremity edema. She denies any fever, chills, nausea, vomiting or diarrhea. Exam Data for Last 24 hours Vital signs and Labs for Last 24 Hours: Temp Pulse Resp BP Pulse Ox 98.0 F 71 19 98/61 L 99 10/27/21 08:00 10/27/21 08:00 10/27/21 08:00 10/27/21 08:00 10/27/21 08:00 Laboratory Results - last 24 hr 10/26/21 11:05: WBC 7.5, RBC 4.22, Hgb 11.3 L, Hct 35.5 L, MCV 84.1, MCH 26.8 L, MCHC 31.8, RDW 15.7, Plt Count 272, MPV 8.8, Neut % (Auto) 64.0, Lymph % (Auto) 23.5, Roberts % (Auto) 7.5, Eos % (Auto) 3.2, Baso % (Auto) 1.8, Neut # (Auto) 4.8, Lymph # (Auto) 1.8, Roberts # (Auto) 0.6, Eos # (Auto) 0.2, Baso # (Auto) 0.1 10/26/21 11:05: Sodium 142, Potassium 3.4 L, Chloride 102, Carbon Dioxide 31 H, Anion Gap 12.4, BUN 12, Creatinine 0.70, Estimated Creat Clear 80, Estimated GFR 85, Est GFR ( Amer) 103, Glucose 164 H, Calcium 7.8 L, Total Bilirubin < 0.1 L, AST 30, ALT 67, Alkaline Phosphatase 136 H, Troponin I < 0.01, Total Protein 6.8, Albumin 3.8, Globulin 3.0, Albumin/Globulin Ratio 1.3, TSH 3.15, Thyroxine (T4) 7.3 10/26/21 11:05: Digoxin 0.40 10/26/21 11:08: SARS-CoV-2 (PCR) Not detected, Influenza A Untype (PCR) Not detected, Influenza Type B (PCR) Not detected 10/26/21 12:25: POC Glucose 204 H 10/26/21 14:20: Troponin I < 0.01 10/26/21 17:03: POC Glucose 223 H 10/26/21 18:03: Troponin I < 0.01 10/26/21 20:16: POC Glucose 136 H 10/27/21 05:13: POC Glucose 121 H I & O for Last 24 hours: Intake & Output 10/24/21 10/25/21 10/26/21 10/27/21 23:59 23:59 23:59 23:59 Intake Total 360 / 360 529 / 529 Output Total 700 / 700 Balance 360 / 360 -171 / -171 Weight 186 lb 2 oz 190 lb 3 oz Constitutional Constitutional: no acute distress, obese and chronically ill appearing *Routine HEENT Exam Head: Present normocephalic and atraumatic ENT: Present mucous membranes moist *Routine Neck Exam Neck: Present supple, full ROM and normal carotid upstroke; Absent JVD, carotid bruit or lymphadenopathy *Routine Respiratory Exam Respiratory: Present CTA bilaterally, normal respiratory effort, able to speak in complete sentences and symmetric chest movement *Routine Cardiovascular Exam Cardiovascular: Present RRR, Normal S1 and Normal S2; Absent murmur or gallop *Routine Abdominal Exam Abdominal: Present soft and normoactive bowel sounds; Absent tenderness, distended or organomegaly *Routine Extremities Exam Extremities: Present edema, full ROM, pulses intact and normal capillary refill; Absent cyanosis or clubbing *Routine Skin Exam Skin: Present intact and warm; Absent erythema *Routine Neurological Exam Neurological: Present alert, oriented X3 and CN II-XII intact; Absent sensory deficit or motor deficit Routine Psychiatric Exam Psychiatric: Present normal affect Progress Note: A&P Assessment and plan (1) Atrial fibrillation: Status: Chronic (2) Diabetes: Status: Chronic (3) Cardiac pacemaker in situ: Status: Chronic (4) Lymphedema: Status: Chronic (5) HLD (hyperlipidem
[2021-10-27 11:44] LABS: POC Glucose,Bedside 192 (70-110)
--- NOTE | 2021-10-27 12:09 | EXP.HPDC ---
General Admission date:: 10/26/21 Discharge date: 10/27/21 *Admission Date: 10/26/21 *Chief complaint: Chest Pain *History of present illness: This is a 61-year-old white female who presented to the emergency department from [facility] because they were concerned about her heart racing for the last couple of days.? The patient was found to be in atrial fibrillation with RVR at around 140 bpm.? The patient does have a history of atrial fibrillation/flutter.? She has a pacemaker and is well and has underwent cardiac ablation in the past.? The patient was on metoprolol, diltiazem and digoxin when she went into atrial fibrillation with RVR.? The patient has been started on amiodarone therapy and she did convert to sinus rhythm.? She remains on IV amiodarone this morning and has been given her first oral dose of amiodarone as well.? She denies any chest pain or pressure.? She denies any shortness of breath.? She states the racing of her heart has resolved.? She has chronic lower extremity edema.? She denies any fever, chills, nausea, vomiting or diarrhea (Per Beto Cedeño APRN). PFSH PFS Medical History (Updated 10/27/21 @ 11:15 by Myrna Cedeño APRN) Arrhythmia Arthritis Atrial fibrillation Atrial flutter Congestive heart failure Coronary arteriosclerosis Coronary artery disease Diabetes Gallbladder disease HHD (hypertensive heart disease) History of gastroesophageal reflux (GERD) History of left heart catheterization History of pacemaker HLD (hyperlipidemia) HTN (hypertension) Lymphedema Migraine Tachycardia Surgical History (Updated 10/27/21 @ 11:15 by Myrna Cedeño APRN) Cardiac pacemaker in situ H/O arthroscopy of right knee Hx laparoscopic cholecystectomy Family History (Updated 10/26/21 @ 16:10 by Alea Roy RN) Other No significant family history Social History (Updated 10/26/21 @ 16:12 by Alea Roy, PAIGE) Smoking Status: Never smoker alcohol intake: never counseling provided: none substance use type: denies use current occupational status: disabled Travel in the last 8 weeks: None household members: other housing: assisted living facility lives independently: No marital status: single number of children: 0 current occupational exposures/hazards: No caffeine: No Review of Systems Constitutional Constitutional: Reports system reviewed and no additional complaints, except as documented, Denies excessive sweating, Denies headache(s) and Denies weakness Eyes Eyes: Reports system reviewed and no additional complaints, except as documented ENT Ears, Nose, Mouth, and Throat: Reports system reviewed and no additional complaints, except as documented, Denies headache(s) and Denies lip swelling *Cardiovascular Cardiovascular: Reports system reviewed and no additional complaints, except as documented, Denies chest pain and Denies dyspnea *Respiratory Respiratory: Reports system reviewed and no additional complaints, except as documented and Denies dyspnea *Gastrointestinal Gastrointestinal: Reports system reviewed and no additional complaints, except as documented, Denies bloating, Denies change in stool character and Denies constipation *Musculoskeletal Musculoskeletal: Reports system reviewed and no additional complaints, except as documented, Denies arthralgias and Denies numbness Integumentary/Breasts Skin/Breast: Reports system reviewed and no additional complaints, except as documented, Denies alopecia and Denies jaundice *Neurologic Neurologic: Reports system reviewed and no additional complaints, except as documented, Denies headache(s), Denies numbness and Denies weakness Psychiatric Psychiatric: Reports system reviewed and no additional complaints, except as documented, Denies anxiety and Denies change in appetite Endocrine Endocrine: Reports system reviewed and no additional complaints, except as documented, Denies cold intolerance and Denies excessive sweating Hematol
--- NOTE | 2021-10-27 13:48 | PC.NURSE ---
report called to Crissy @ [facility].
--- NOTE | 2021-10-27 17:35 | PC.NURSE ---
federal bus has arrived
--- NOTE | 2021-10-30 14:03 | CARE MANAGER ---
Contacted [facility] home and they state patient is doing well and are aware of appointments. Denies any questions or concerns. PAIGE Muro
== END 2021-10-27 17:35 | disposition home or self-care (01) | DRG 310 ==
LOC: ER 11:47 → 2ND 14:38 → ER 15:53
PROVIDERS: Admitting Provider Emergency Medicine; Emergency Provider Emergency Medicine; PCP Emergency Medicine; Visit Provider Emergency Medicine
DX: I48.92 Unspecified atrial flutter (principal); Z95.0 Presence of cardiac pacemaker; I48.91 Unspecified atrial fibrillation; I25.10 Atherosclerotic heart disease of native coronary artery without angina pectoris; I11.0 Hypertensive heart disease with heart failure; I50.9 Heart failure, unspecified; K21.9 Gastro-esophageal reflux disease without esophagitis; E11.9 Type 2 diabetes mellitus without complications; E78.5 Hyperlipidemia, unspecified
CPT/HCPCS: 36415; 71045; 80053; 80162; 82962; 84436; 84443; 84484; 85025; 93005; 93306; 93971; 97162; 99285; C9803; J0282; J7060; U0003; U0005

== ENCOUNTER → 2021-12-15 08:01 | Outpatient (CLI) | payer MEDICARE, BC, SELFPAY ==
--- NOTE | 2021-12-15 08:04 | MM_ITS ---
PROCEDURE INFORMATION: Exam: MG Bilateral Screening 3D Mammography Exam date and time: 12/15/2021 7:57 AM Age: 61 years old Clinical indication: Screening examination. Left excisional biopsy. TECHNIQUE: Imaging protocol: Bilateral Screening tomosynthesis and 2D mammography including computer-aided detection (CAD) when performed. COMPARISON: 1. MG MM DIG SCREENING MAMM BI W/CAD 12/18/2019 11:10 AM 2. MG MM DIG SCREENING MAMM BI W/CAD 01/30/2019 9:19 AM 3. MG MM MAMMO DIGITAL DIAGNOSTIC W CAD BILAT 09/10/2012 10:54 AM FINDINGS: MAMMOGRAPHY: Breast composition: The breasts are almost entirely fatty. Mass: None. Architectural distortion: None. Calcifications: No suspicious calcifications. Asymmetric density: None. Skin thickening: None. Axillary adenopathy: None. Other findings: Pacemaker battery pack in the right axilla limits evaluation a centrally you were of clinical breast exam. IMPRESSION: No mammographic evidence of malignancy. Annual screening is recommended unless otherwise clinically indicated. ASSESSMENT: BI-RADS Category 1: Negative
== END ==
PROVIDERS: PCP Emergency Medicine; Visit Provider Emergency Medicine
DX: Z12.31 Encounter for screening mammogram for malignant neoplasm of breast (principal)
CPT/HCPCS: 77063; 77067

== ENCOUNTER → 2022-01-01 10:31 | Outpatient (CLI) | payer MEDICARE, BC, SELFPAY ==
--- NOTE | 2022-01-01 10:37 | US_ITS ---
FINAL REPORT CLINICAL HISTORY: thickened endometrium FINDINGS: Transvaginal sonographic images of the pelvis were obtained. The uterus measures 6.7 x 5.3 x 4.6 cm. The endometrium measures 9 mm, which is thickened. There are multiple uterine fibroids. Fibroids measure up to 5.5 cm in greatest dimensions. The right ovary measures 2.3 cm in length and left ovary measures 3.6 cm in length. Normal blood flow seen to the ovaries. There is a 1.9 cm cystic mass in the left ovary that could represent a cyst versus cystic neoplasm. There is a 1.1 cm cyst in the right ovary. There is no evidence of free fluid. IMPRESSION: 1.9 cm cyst versus cystic neoplasm in the left ovary. 1.1 cm right ovarian cyst. Consider follow-up ultrasound. Thickened endometrium with fibroid uterus. Reviewed, Interpreted and Dictated by Juaquin Moreno III, MD Transcribed by Woodrow Parker Authenticated and . [facility]
== END ==
PROVIDERS: PCP Emergency Medicine; Visit Provider Obstetrics & Gynecology
DX: R93.89 Abnormal findings on diagnostic imaging of other specified body structures (principal)
CPT/HCPCS: 76830

== ENCOUNTER → 2022-01-19 08:41 | Outpatient (CLI) | payer MEDICARE, BC, SELFPAY ==
--- NOTE | 2022-01-19 08:51 | XR_ITS ---
FINAL REPORT CLINICAL HISTORY: rt knee pain FINDINGS: Three views of the right knee reveal no evidence of fracture or dislocation. The bony alignment is normal. There is severe degenerative change with severe patellofemoral and lateral compartment narrowing. There is a small joint effusion. There are multiple anteromedial subcutaneous calcifications. IMPRESSION: Severe degenerative change with severe patellofemoral and lateral compartment narrowing. No acute bony abnormality. Reviewed, Interpreted and Dictated by Juaquin Moreno III, MD Transcribed by Jewels Rodriguez Authenticated and [facility]
== END ==
PROVIDERS: PCP Emergency Medicine; Visit Provider Orthopaedic Surgery
DX: M25.561 Pain in right knee (principal)
CPT/HCPCS: 73562

== ENCOUNTER 2022-03-09 13:00 | Outpatient (RCR) | payer MEDICARE, BC, SELFPAY ==
--- NOTE | 2022-01-23 11:16 | HMH.PTOPWND ---
Rehab Outpt Wound Evaluation Rehab OP Wound Evaluation Start: 01/23/22 11:06 Freq: Status: Active Protocol: Document 01/23/22 11:07 PANTERA (Rec: 01/23/22 11:16 PHORGILBERT [id number]) E-signed By Pepe Fuller, PT Subjective/History History History This is the initial PT eval for Clarisse Steiner 61 yowf who presents with chronic B LE lymphedema. She presents today with increased B foot edema and fairly consistent B lower leg edema. She reports less pain in the R knee after recent cortisone injection. She reports baseline difficulty with ambulation at this time. Subjective Subjective Currently 4/10 pain in the R knee. 2+ pitting edgardo anoted to B feet and 1+ pitting edema noted to B lower legs. Minimal 1/4 tenderness to palpation along B lower legs in the gaitor area. Lymphedema Eval Classification of Lymphedema Secondary Lymphedema Yes Stemmer's sign Stemmer's Sign yes Stage of Lymphedema Lymphedema stages Stage II (Pitting edema, increased fibrosis w/ decreased pitting) Skin Changes Dry Skin Yes Skin Folds Yes Hyperkeratosis Yes: minimal Redness Yes Discoloration of Skin Yes Other Changes Yes Pain Scale Pain Scale (0-10) 4 Affected Extremities Areas Affected by Lymphedema/Edema Right Lower Extremity,Left Lower Extremity Manual Lymphatic Drainage Treatment Area MLD Treatment Area Right Lower Extremity,Left Lower Extremity Wound Problems/Impairments Impairments Problems/Impairmments Palpation Tenderness,Impaired Endurance,Impaired Transfers, Impaired Gait Pattern,Impaired Walking,Impaired Standing, Impaired Stair Climbing, Impaired Incline Stepping, Impaired Stepping on Uneven Surface,Impaired Recreational Activities,Increased Edema, Lymphedema Present,Subjective C/O Pain,Impa
--- NOTE | 2022-02-22 11:33 | HMH.RHREAS ---
Rehab Reassessment Rehab OP Re-assessment Start: 02/22/22 11:27 Freq: Status: Active Protocol: Document 02/22/22 11:28 PANTERA (Rec: 02/22/22 11:33 PHOCALLIE [id number]) E-signed By Pepe Fuller, PT Rehab Re-assessment Subjective Subjective Pt reports feeling better with B LE swelling overall. Less pain. Objective Objective Notes Pain 3/10 in B LE. 1/4 TTP in B LE. Circumferential Measurements: R LE total 170.2 cm. L LE total 165.9 cm. Edema: 1+ pitting edema noted to B lower legs. Assessment Progress Assessment Progressing as Expected Assessment Notes Pt has shown significant decrease in B LE with less fibrosis and less pitting noted this date. Pain and tenderness have also markedly improved. Pt is increasing standing times with less heaviness in B LE. Patient goals met ST,2,3,4,5 Goals Not Met LT,2,3,4 Revised Goals none Plan Plan Continue per initial POC Frequency of Therapy 2 x/wk Duration of therapy 4 wks Time and Billing Re-Eval Time 14 Re-Eval Billing Units 1 PHYSICIAN CERTIFICATION: I certify the specified therapy services for Jaci Steiner are required, authorized, and reviewed every 30 days.
== END 2022-03-09 13:05 | disposition home or self-care (01) ==
LOC: PT 13:00
PROVIDERS: PCP Emergency Medicine; Visit Provider Emergency Medicine
DX: I89.0 Lymphedema, not elsewhere classified (principal)
CPT/HCPCS: 97140; 97162; 97164

== ENCOUNTER → 2022-03-27 11:39 | Outpatient (CLI) | payer MEDICARE, BC, SELFPAY ==
[2022-03-27 12:45] LABS: Basophils # 0.1 K/mm3 (0-0.2); Basophils % 1.6 % (0.1-2.0); Eosinophils # 0.3 K/mm3 (0.0-0.4); Eosinophils % 4.4 % (0.1-12.0); Hematocrit 32.4 % (37.0-47.0); Hemoglobin 10.4 g/dL (12.2-16.2); Lymphocytes # 1.5 K/mm3 (0.7-4.5); Lymphocytes % 25.3 % (10-50); Mean Corpuscular HGB Conc 31.9 g/dL (31.8-35.4); Mean Corpuscular Hemoglobin 26.4 pg (27.0-31.2); Mean Corpuscular Volume 82.6 fl (81-99); Mean Platelet Volume 8.4 fl (7.4-10.4); Monocytes # 0.5 K/mm3 (0.1-1.0); Monocytes % 7.8 % (1.7-9.3); Neutrophils # 3.5 K/mm3 (1.8-7.8); Neutrophils % 60.9 % (37.0-80.0); Platelet Count 200 K/mm3 (142-424); Red Blood Count 3.93 M/mm3 (4.20-5.40); Red Cell Distribution Width 16.1 % (11.5-17.5); White Blood Count 5.8 K/mm3 (4.8-10.8)
[2022-03-27 15:21] LABS: Chloride 104 mmol/L (98-107); Sodium 139 mmol/L (136-145)
[2022-03-27 15:22] LABS: Potassium 3.8 mmoL/L (3.5-5.1)
[2022-03-27 15:24] LABS: Alanine Aminotransferase 18 U/L (12-78); Albumin Level 3.5 g/dl (3.5-5.0); Albumin/Globulin Ratio 1.2 (1.1-1.8); Alkaline Phosphatase 114 U/L (38-126); Anion Gap 10.8 mEq/L (5-15); Aspartate Amino Transferase 22 U/L (14-36); Bilirubin,Total 0.3 mg/dl (0.2-1.3); Blood Urea Nitrogen 12 mg/dl (7-17); Carbon Dioxide 28 mmol/L (22.0-30.0); Estimated Glomerular Filt Rate 73 ml/min (>60); GFR (African American) 88 ML/MIN (>60); Total Protein,Serum 6.5 g/dl (6.3-8.2)
[2022-03-27 15:25] LABS: Calcium 7.9 mg/dl (8.4-10.2); Glucose 134 mg/dl (74-100)
== END ==
PROVIDERS: PCP Emergency Medicine; Visit Provider Obstetrics & Gynecology
DX: R93.89 Abnormal findings on diagnostic imaging of other specified body structures (principal)
CPT/HCPCS: 36415; 80053; 85025

== ENCOUNTER 2022-04-03 06:33 | Day surgery (SDC) | payer MEDICARE, BC, SELFPAY ==
--- NOTE | 2022-03-30 11:25 | SUR.PREOP ---
Called Juan and spoke with Crissy. Explained that patient is to be here at 6am on 04/03, must have a family member or staff to remain at [facility] while patient is here. Explained that patient is to hold eliquis 48-72 hours before procedure and be NPO after midnight may take BP and seizure med with small sip of water in AM of procedure Crissy stated understanding. No questions at this time.
[2022-03-30 11:29] VITALS: BMI 34.4
[2022-04-03] VITALS (13 sets, daily range): BP systolic 112–127; BP diastolic 67–89; PULSE 68–74; RESP 14–18; TEMP 36.2–43; O2SAT 92–99
--- NOTE | 2022-04-03 07:10 | EXP.ANES.CKL ---
[facility] Disclaimer: The information contained in this section may have been updated after the patient was seen, as this information can be updated by other users. Medical History Acute bronchitis Adnexal cyst Allergic reaction Angina pectoris Arrhythmia Arthritis Arthritis of knee, right Arthritis of left knee Atrial fibrillation Atrial flutter Atypical chest pain Cervical disc disease Chest pain Cholelithiasis Congestive heart failure Contusion of right lower leg Coronary arteriosclerosis Coronary artery disease Diabetes Dyspnea Edema of lower extremity Gallbladder disease HHD (hypertensive heart disease) Hiatal hernia History of gastroesophageal reflux (GERD) History of left heart catheterization History of pacemaker HLD (hyperlipidemia) HTN (hypertension) Hyperglycemia Hypokalemia Hypotension Infection due to ESBL-producing Escherichia coli Left femoral shaft fracture Lumbar facet arthropathy Lumbar spondylosis Lymphedema Migraine Reflux esophagitis Sacroiliitis Tachycardia Uterine leiomyoma UTI (urinary tract infection) Surgical History Cardiac pacemaker in situ H/O arthroscopy of right knee Hx laparoscopic cholecystectomy Family History Other No significant family history Social History Smoking Status: Never smoker alcohol intake: never counseling provided: none substance use type: denies use current occupational status: disabled Travel in the last 8 weeks: None caregiver/support person: Yes household members: other housing: assisted living facility lives independently: No marital status: single number of children: 0 current occupational exposures/hazards: No caffeine: No special enio needs: No agree to transfusion: No do you feel safe at home: Yes victim of physical abuse: No victim of emotional abuse: No victim of sexual abuse: No would you like helpful sources: No [facility] Anesthesia Checklist Patient Identification Patient Identification: Arm Band and Verbal (Name & ) Structural Data Admitted From: Home Planned Operative Procedure/s: Hysteroscopy, D & C Consent for Planned Operative Procedure(s) Verified: Yes NPO Status Verified Time NPO: 00:00 Chart Verification Results Verified: CBC and BMP Additional verifications Anesthesia Reactions: No Hx Blood Transfusions: Yes (september 2006) Blood Transfusion Reaction: No Airway Assessment C-Spine Mobility Assessed: Yes TMJ Mobility Assessed: Yes Dentition: Poor Dentition Neurological Assessment Level of Consciousness: Awake Hx Seizures: No Numbness or tingling in extremities: No Anesthesia Plan Anesthesia Risk discussed: Yes Anesthesia Plan: Verified ASA Class: III Anesthesia Type: MAC
[2022-04-03 07:23] LABS: POC Glucose,Bedside 148 (70-110)
--- NOTE | 2022-04-03 09:04 | P.PNANES_ITS ---
[facility] Anesthesia Record Part I Anesthesia Record I Intake, IV Amount: 600 Estimated blood loss (mL): 10 Urine output (mL): 0 Blood Pressure: 127/89 SaO2: 92 Pulse Rate: 70 Respiratory Rate: 14 Temperature: 97.9 F Patient is:: Drowsy and Oral/Nasal airway Stable to PACU at:: 09:02
--- NOTE | 2022-04-03 09:46 | PC.NURSE ---
0931-detailed report called to PAIGE Pelaez 0932-pt transported to post op via stretcher w/mil rails up and left in care of PAIGE Yusuf with bed locked in lowest position, vss, pt stable
--- NOTE | 2022-04-03 09:51 | P.OP_ITS ---
Date of procedure: 04/03/22 Pre-op Diagnosis:: 1. Postmenopausal bleeding 2. Thickend endometrium 3. Endometrial cells on cervical cytology screening 4. Obesity Post-op Diagnosis:: 1. Postmenopausal bleeding 2. Thickend endometrium 3. Endometrial cells on cervical cytology screening 4. Obesity 5. Cervical polyp Procedure performed:: 1. Cervical polypectomy 2. Dilation and Curettage with Myosure excision of uterine mass Surgeon:: Tara Smallwood MD EMERGENCY SERVICES PROFESSIONAL:: Arin Molina Anesthesia: GETA Estimated blood loss (mL): 10 Operative findings:: Cervical polyp prolapsing through ectocervix uterine mass posterior cavity wall, c/w submucosal fibroid uterine masses anterior cavity wall c/w polyps Operative note:: The patient was taken to the OR and general anesthesia administered without difficulty. She was prepped/draped in lithotomy position. The cervix was difficult to visualize because of limited lithotomy positioning due to anatomical difficulties with left and hip. Cervantes retractors were used to better visualize the cervix and a large polyp was seen prolapsing through the external os. This polyp was excised with polyp forceps and sent for pathology. The cervix was subsequently dilated and hysteroscopic evaluation performed. Numerous polypoid lesions were visualized within the endometrial cavity on the anterior wall. A lesion c/w submucosal fibroid was identified on the posterior wall. The Myosure was used to excise all of these lesions and to sample endometrial tissue throughout the cavity. Once this was completed, all instruments were removed from her uterus and vagina. She was taken out of lithotomy position, awakened from anesthesia and taken to the PACU in stable condition. All sponge, needle & instrument counts correct. EBL 10cc. Condition: stable Disposition: PACU Specimens:: 1. Cervical polyp 2. Endometrial curettings Complications:: None
--- NOTE | 2022-04-03 10:16 | SUR.OPER ---
During procedure, pt had multiple bowel movements. MD would clean instruments and patient with betadine solution after each BM.
--- NOTE | 2022-04-03 10:42 | EXP.ANES.II ---
[facility] Anesthesia Record Part II Anesthesia Record Part II Discharge Time: 09:32 Destination: Surgical Day Care (OP Surgery) PACU nurse assessment reviewed?: Yes Patient Condition:: Good Anesthesia Complications:: None Swallowing reflex intact?: Yes Cyanosis?: No Blood Pressure: 121/84 Pulse Rate: 70 Temperature: 97.5 F Mental Status: Alert & Oriented Pain level:: 0 Nausea and/or vomitting:: None Intake, IV Amount: 0
--- NOTE | 2022-04-03 10:53 | SUR.PHASEII ---
1010 report called to Efrain Spencer at [facility]. 1020- went to escort patient out to [facility] personal. unable to find marlin called [facility] who stated their boss told her to come back. Selwyn got on the phone and i educated them on our policy that someone is to stay here during her procedure and that the patient was ready for discharge. selwyn stated someone from facility will be up here to get patient. 1105 marlin here to get patient. patient wheelchair is going to stay in post-op until someone from their facility can come get it. marlin stated they have extra ones at the facility.
== END 2022-04-03 11:15 | disposition home or self-care (01) ==
PROVIDERS: PCP Emergency Medicine; Visit Provider Obstetrics & Gynecology
DX: N95.0 Postmenopausal bleeding (principal); R93.89 Abnormal findings on diagnostic imaging of other specified body structures; N84.1 Polyp of cervix uteri; E66.9 Obesity, unspecified; Z79.899 Other long term (current) drug therapy; E11.9 Type 2 diabetes mellitus without complications
CPT/HCPCS: 58558; 82962; 88305; 96374; J2405

== ENCOUNTER 2022-04-09 00:37 | Emergency (ER) | payer MEDICARE, BC, SELFPAY ==
[2022-04-09] VITALS (10 sets, daily range): BP systolic 100–123; BP diastolic 61–92; PULSE 63–72; RESP 16–26; TEMP 36.6–36.8; O2SAT 70–98; BMI 33.8
--- NOTE | 2022-04-09 00:53 | XR_ITS ---
PROCEDURE INFORMATION: Exam: XR Chest Exam date and time: 04/09/2022 1:35 AM Age: 62 years old Clinical indication: Chest wall pain; Additional info: Cp TECHNIQUE: Imaging protocol: Radiologic exam of the chest. Views: 1 view. COMPARISON: CR XR CHEST PORTABLE 10/26/2021 11:24 AM FINDINGS: Tubes, catheters and devices: Unchanged pacemaker leads. Lungs: Low lung volumes with associated vascular crowding and bibasilar atelectasis. Pleural spaces: Unremarkable. No pleural effusion. No pneumothorax. Heart/Mediastinum: Cardiomegaly. Bones/joints: Unremarkable. IMPRESSION: No acute findings.
--- NOTE | 2022-04-09 00:57 | HMH.EDCP ---
Discharge Plan Disposition Patient Disposition: Home, Self-Care Chief Complaint: Chest Pain Prescriptions Prescriptions: No Action atorvastatin 10 mg tablet 10 mg PO HS loratadine 10 mg tablet 10 mg PO DAILY metformin 500 mg tablet extended release 24 hr 500 mg PO DAILY duloxetine 30 mg capsule,delayed release(DR/EC) 30 mg PO DAILY nortriptyline 10 capsule 10 mg PO HS furosemide 40 tablet 40 mg PO BID metoprolol tartrate 100 MG tablet 200 mg PO BID spironolactone 25 MG tablet 25 mg PO DAILY famotidine 20 MG tablet 20 mg PO BID apixaban 5 MG tablet 5 mg PO BID oxcarbazepine 300 mg tablet 300 mg PO BID amiodarone 200 mg tablet 200 mg PO DAILY Referrals Follow up/Referrals: Didier Bueno MD [Primary Care Provider] - See instructions Clinical Impressions Clinical Impression: Cardiac pacemaker in situ, Chest pain, Abnormal abdominal CT scan Instructions Patient Instructions: DI for Atypical Chest Pain Discharge ED Provider: Ximena (ED)Didier Chest Pain HPI General Chief Complaint: Chest Pain Stated Complaint: CP Time Seen by Provider: 04/09/22 00:57 Mode of Arrival: EMS Source of Information: Patient, EMS and Medical Record Limitations: No Limitations Description of Symptoms (Recalled from ER Triage Doc. by RN): PT states that 30 mins ago she went to the nurses office to get ice water and began to have sudden chest pressure that radiated into her back. C/O backf pain, bilateral ear pain and diffuse bodyaches. States that the ear and back pain began at the same time as the chest pain. History of Present Illness HPI narrative: pt with upper chest pain back pain elham ALMANZA complaint: chest pain Onset (ago): hour(s) Pain location: epigastric REINIER Score for Non-Stemi Age of Patient: 60-69 years old Heart Rate: 70-89 bpm Systolic Blood Pressure: 120-139 mmhg Serum Creatinine: 0.80-1.19 mg/dl CHF Killip Class: I-No CHF Other Risk Factors: None Non-Stemi Risk Score: 108 Risk Stratification: 1-108 = Low Risk Related Data On Oral Contraceptives: No Home Medications Medication Instructions Recorded Confirmed nortriptyline 10 mg capsule 10 mg PO HS Depression 06/20/17 04/03/22 furosemide 40 mg tablet 40 mg PO BID Fluid 12/30/17 04/03/22 metoprolol tartrate 100 mg tablet 200 mg PO BID Hypertension 12/30/17 04/03/22 spironolactone 25 mg tablet 25 mg PO DAILY Fluid 12/30/17 04/03/22 apixaban 5 mg tablet 5 mg PO BID AFIB 08/28/19 04/03/22 famotidine 20 mg tablet 20 mg PO BID GERD 08/28/19 04/03/22 atorvastatin 10 mg tablet 10 mg PO HS Cholesterol 01/19/20 04/03/22 loratadine 10 mg tablet 10 mg PO DAILY Allergy symptoms 01/19/20 04/03/22 oxcarbazepine 300 mg tablet 300 mg PO BID SEIZURES 10/27/21 04/03/22 duloxetine 30 mg capsule,delayed 30 mg PO DAILY mood 01/01/22 04/03/22 release metformin 500 mg tablet,extended 500 mg PO DAILY htn 01/01/22 04/03/22 release 24 hr amiodarone 200 mg tablet 200 mg PO DAILY htn 04/03/22 04/03/22 Allergies Allergy/AdvReac Type Severity Reaction Status Date / Time celecoxib [From CELEBREX] Allergy Unknown Unknown Verified 03/27/22 11:23 allergy reaction hydrocodone [From VICODIN] Allergy Unknown Unknown Verified 03/27/22 11:23 allergy reaction oxycodone [OXYCODONE] Allergy Unknown Unknown Verified 03/27/22 11:23 allergy reaction red dye Allergy Unknown Unknown Verified 03/27/22 11:23 [From RED DYE (FOOD/DRUG)] allergy reaction tramadol [From ULTRAM] Allergy Unknown Unknown Verified 03/27/22 11:23 allergy reaction Iodinated Contrast Media AdvReac Intermediate ITCHING Verified 03/27/22 11:23 [IODINATED CONTRAST MEDIA - ORAL AND] [facility] Disclaimer: The information contained in this section may have been updated after the patient was seen, as this information can be updated by other users. Medical History (Reviewe
--- NOTE | 2022-04-09 01:00 | ECG_ITS ---
APPROVED REPORT Exam: Resting ECG HR:69 bpm ECG Measurements Heart Rate 69 AXES WY 280 P 215 QRSd 104 QRS 9 QT 415 T 59 QTc 435 Conclusion ELECTRONIC ATRIAL PACEMAKER ST DEVIATION AND MODERATE T-WAVE ABNORMALITY, CONSIDER ANTERIOR ISCHEMIA [-0.1+ mV T-WAVE IN V3/V4] ABNORMAL ECG UNCONFIRMED REPORT Electronically signed by : Atfi Peres MD 04/09/2022 19:23:21
[2022-04-09 01:02] LABS: Basophils % 0.7 % (0.1-2.0); Eosinophils # 0.1 K/mm3 (0.0-0.4); Eosinophils % 2.5 % (0.1-12.0); Hematocrit 30.6 % (37.0-47.0); Hemoglobin 9.9 g/dL (12.2-16.2); Lymphocytes # 0.6 K/mm3 (0.7-4.5); Lymphocytes % 20.7 % (10-50); Mean Corpuscular HGB Conc 32.2 g/dL (31.8-35.4); Mean Corpuscular Hemoglobin 26.1 pg (27.0-31.2); Mean Corpuscular Volume 80.8 fl (81-99); Mean Platelet Volume 8.6 fl (7.4-10.4); Monocytes % 0.8 % (1.7-9.3); Neutrophils # 2.2 K/mm3 (1.8-7.8); Neutrophils % 75.3 % (37.0-80.0); Platelet Count 244 K/mm3 (142-424); Red Blood Count 3.79 M/mm3 (4.20-5.40)
--- NOTE | 2022-04-09 01:03 | CT_ITS ---
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 Radiation optimization: All CT scans at this facility use at least one of these dose optimization techniques: automated exposure control; mA and/or kV adjustment per patient size (includes targeted exams where dose is matched to clinical indication); or iterative reconstruction. Contrast material: ISOVUE; Contrast volume: 75 ml; Contrast route: IV; REPORTING DATA: Count of CT and Cardiac NM exams in prior 12 months: This patient has received 0 known CTs and 0 known cardiac nuclear medicine studies in the 12 months prior to the current study. COMPARISON: CT ABDOMEN PELVIS WO CON 09/29/2018 6:34 PM FINDINGS: Tubes, catheters and devices: Pacemaker leads are noted. Lungs: Mild scarring and atelectasis in the lower lungs. Pleural spaces: Trace right pleural effusion. Heart: Cardiomegaly. Diaphragm: Moderate-sized hiatal hernia. Liver: Nonspecific periportal edema. Gallbladder and bile ducts: Gallbladder is absent. Pancreas: There is a mass near the pancreatic head measuring 3.6 x 2.6 cm on image 46 series 3. Comparing to prior images, this is favored to be a lymph nodes that has enlarged, however, pancreatic mass cannot be entirely excluded. There is a peripancreatic lymph node measuring 2.5 cm in short axis on image 36 series 3. Mild pancreatic atrophy. Spleen: Normal. No splenomegaly. Adrenal glands: Normal. No mass. Kidneys and ureters: Normal. No hydronephrosis. Stomach and bowel: The majority of the colon is collapsed, which is a nonspecific appearance that can correlate with colitis in the appropriate clinical setting. Appendix: Unremarkable appendix. Intraperitoneal space: Unremarkable. No free air. No significant fluid collection. Vasculature: The arteries demonstrate moderate atherosclerotic disease. Lymph nodes: See Pancreas finding. Urinary bladder: Unremarkable as visualized. Reproductive: There is gas in the endometrial cavity. Interval decrease in size of the uterus and the uterine fibroids. Bones/joints: Unremarkable. No acute fracture. Soft tissues: Tiny fat containing umbilical hernia. IMPRESSION: 1. There is gas in the endometrial cavity. Please exclude infection. 2. The majority of the colon is collapsed, which is a nonspecific appearance that can correlate with colitis in the appropriate clinical setting. 3. There is a mass near the pancreatic head measuring 3.6 x 2.6 cm on image 46 series 3. Comparing to prior images, this is favored to be a lymph nodes that has enlarged, however, pancreatic head mass is possible. There is a peripancreatic lymph node measuring 2.5 cm in short axis on image 36 series 3. Consider ERCP with biopsy versus follow-up imaging as lymphoma and malignancy with metastatic disease needs to be excluded. 4. Trace right pleural effusion. 5. Nonspecific periportal edema. Please exclude acute hepatitis clinically. 6. THIS REPORT CONTAINS FINDINGS THAT MAY BE CRITICAL TO PATIENT CARE. The findings were verbally communicated via telephone conference with Didier Bueno (ED) at 3:03 AM EST on 04/09/2022. The findings were acknowledged and understood.
[2022-04-09 01:07] LABS: Blood Urea Nitrogen 12 mg/dl (7-17); Calcium 7.8 mg/dl (8.4-10.2); Carbon Dioxide 33 mmol/L (22.0-30.0); Chloride 104 mmol/L (98-107); Creatinine Clearance Estimated 77 mL/min (50-200); Estimated Glomerular Filt Rate 63 ml/min (>60); GFR (African American) 77 ML/MIN (>60); Glucose 121 mg/dl (74-100); Sodium 137 mmol/L (136-145)
[2022-04-09 01:12] LABS: C-Reactive Protein 40.5 mg/L (0-4)
--- NOTE | 2022-04-09 01:12 | PC.NURSE ---
Sridevi from lab called critical potassium of 3.0. notified. No new orders.
[2022-04-09 01:18] LABS: Lipase 97 U/L (23-300)
[2022-04-09 01:19] LABS: Occult Blood,Stool Positive (Negative)
[2022-04-09 01:26] LABS: Troponin I < 0.01 ng/ml (0.00-0.034)
--- NOTE | 2022-04-09 01:27 | PC.NURSE ---
pt to ct scan
[2022-04-09 01:37] LABS: Erythrocyte Sedimentation Rate 56 mm/hr (0-30)
[2022-04-09 01:52] LABS: Amylase 53 U/L (30-110)
--- NOTE | 2022-04-09 02:25 | PC.NURSE ---
pt had an episode of urinary incontinence. brief & chux changed. {t given 2 warm blankets per request
[2022-04-09 02:43] LABS: INR 0.97 (0.9-1.1); Prothrombin Time 10.5 seconds (10.1-12.5)
[2022-04-09 02:44] LABS: Alanine Aminotransferase 89 U/L (12-78); Albumin Level 3.4 g/dl (3.5-5.0); Alkaline Phosphatase 212 U/L (38-126); Aspartate Amino Transferase 25 U/L (14-36); Bilirubin,Direct 0.3 mg/dl (0.0-0.4); Bilirubin,Total 0.3 mg/dl (0.2-1.3); Total Protein,Serum 6.4 g/dl (6.3-8.2)
--- NOTE | 2022-04-09 02:56 | PC.NURSE ---
Called doctor of radiology to check status on on ct scan. He will chat with faith
--- NOTE | 2022-04-09 03:02 | PC.NURSE ---
Dr. Bueno s/w [facility] regarding CT scan results.
[2022-04-09 04:41] LABS: Troponin I < 0.01 ng/ml (0.00-0.034)
== END 2022-04-09 05:44 | disposition home or self-care (01) ==
PROVIDERS: Emergency Provider Emergency Medicine; PCP Emergency Medicine
DX: R07.89 Other chest pain (principal); Z95.0 Presence of cardiac pacemaker; R93.5 Abnormal findings on diagnostic imaging of other abdominal regions, including retroperitoneum; Z82.49 Family history of ischemic heart disease and other diseases of the circulatory system; I48.91 Unspecified atrial fibrillation; I50.9 Heart failure, unspecified; I25.10 Atherosclerotic heart disease of native coronary artery without angina pectoris; E11.9 Type 2 diabetes mellitus without complications; I11.0 Hypertensive heart disease with heart failure; K21.9 Gastro-esophageal reflux disease without esophagitis; E78.5 Hyperlipidemia, unspecified
CPT/HCPCS: 71045; 74177; 80048; 80076; 82150; 82272; 83690; 84484; 85025; 85610; 85651; 86140; 93005; 96361; 96374; 99285; G0328; J2405; Q9967

== ENCOUNTER → 2022-04-23 10:06 | Outpatient (CLI) | payer MEDICARE, BC, SELFPAY | PROVIDERS: PCP Emergency Medicine; Visit Provider Emergency Medicine | DX: K86.89 Other specified diseases of pancreas (principal) ==

== ENCOUNTER → 2022-05-17 07:09 | Outpatient (CLI) | payer MEDICARE, BC, SELFPAY | PROVIDERS: PCP Emergency Medicine; Visit Provider Nurse Practitioner | DX: E11.9 Type 2 diabetes mellitus without complications (principal); E78.2 Mixed hyperlipidemia; I11.9 Hypertensive heart disease without heart failure; I25.10 Atherosclerotic heart disease of native coronary artery without angina pectoris; I48.92 Unspecified atrial flutter; I50.9 Heart failure, unspecified; R07.9 Chest pain, unspecified; R60.0 Localized edema; Z95.0 Presence of cardiac pacemaker; Z79.84 Long term (current) use of oral hypoglycemic drugs | CPT/HCPCS: 78452; 93017; 93306; A9502; J2785 ==

== ENCOUNTER 2022-11-08 11:00 | Outpatient (RCR) | payer MEDICARE, BC, SELFPAY ==
--- NOTE | 2022-10-02 16:06 | HMH.PTOPWND ---
Rehab Outpt Wound Evaluation Rehab OP Wound Evaluation Start: 10/02/22 15:41 Freq: Status: Active Protocol: Document 10/02/22 15:58 PHOCALLIE (Rec: 10/02/22 16:06 PHORNE [id number]) E-signed By Pepe Fuller, PT Subjective/History History History This is the initial PT eval for Clarisse Steiner, 62 yowf who presents with chronic B LE lymphedema. She presents today with increased B foot edema and lower leg edema greater on the R side. She reports baseline difficulty with ambulation at this time. She has significant PMH with multiple medical problems, including but not limited to, TBI and multiple B LE prior fxs. Subjective Subjective Currently she reports pain is limited and did not rate when asked. She does present with 2 /4 TTP in the L lower leg. No erythema noted this date. One small open sore that could be an abrasion or excoriation noted to the anterior R chaparro L = 0.2 cm, W= 0.2 cm, D= 0.1 cm . Lymphedema Eval Classification of Lymphedema Secondary Lymphedema Yes Stemmer's sign Stemmer's Sign yes Stage of Lymphedema Lymphedema stages Stage II (Pitting edema, increased fibrosis w/ decreased pitting) Skin Changes Dry Skin Yes Skin Folds Yes Papillomatosis Yes Redness Yes Brittle Uneven Nails Yes Discoloration of Skin Yes Other Changes Yes Affected Extremities Areas Affected by Lymphedema/Edema Right Lower Extremity,Left Lower Extremity Manual Lymphatic Drainage Treatment Area MLD Treatment Area Right Lower Extremity,Left Lower Extremity Wound Problems/Impairments Impairments Problems/Impairmments Palpation Tenderness,Impaired Range of Motion,Impaired Strength,Impaired Endurance, Impaired Transfers,Impaired Gait Pattern,Impaired Walking, Impaired Standing,Impaired
--- NOTE | 2022-11-08 11:54 | HMH.RHREAS ---
Rehab Reassessment Rehab OP Re-assessment Start: 10/02/22 15:41 Freq: Status: Active Protocol: Document 11/08/22 11:49 PANTERA (Rec: 11/08/22 11:54 PHOCALLIE [id number]) E-signed By Pepe Fuller, PT Rehab Re-assessment Subjective Subjective Pt continues to report pain in B LE and TTP in B lower legs. SHe continues to use a w/c for primary mode of mobility. Edema remains in B LE without significant increase or decrease. Pt has not been present in 29 days for treatment. Objective Objective Notes Circumferential measurements: R LE total is 238.2 cm which is +12.3 since initial eval. L LE total is 222.4 cm which is -1.4 cm since initial eval. TTP: 2/4 B lower legs. No erythema noted at this time . Assessment Progress Assessment Slower Than Expected Assessment Notes Pt has shown little to no progress with her edema at this time. Decreased mobility and multiple co-morbid conditions complicate every aspect of her care. Patient goals met none Goals Not Met ST,2,3,4,5 LT,2,3,4, 5,6,7,8 Plan Plan Continue per initial POC. Frequency of Therapy 1-2 x/wk Duration of therapy 4 wks Time and Billing Re-Eval Time 13 Re-Eval Billing Units 1 PHYSICIAN CERTIFICATION: I certify the specified therapy services for Jaci Steiner are required, authorized, and reviewed every 30 days.
== END 2022-11-08 11:05 | disposition home or self-care (01) ==
LOC: PT 11:00
PROVIDERS: PCP Emergency Medicine; Visit Provider Emergency Medicine
DX: I89.0 Lymphedema, not elsewhere classified (principal)
CPT/HCPCS: 97140; 97163; 97164

== ENCOUNTER → 2022-12-27 14:31 | Outpatient (POV) | payer MEDICARE, BC, SELFPAY | PROVIDERS: PCP Emergency Medicine; Visit Provider Specialist/Technologist | DX: Z00.00 Encounter for general adult medical examination without abnormal findings (principal) ==

== ENCOUNTER 2023-01-08 09:13 | Day surgery (SDC) | payer MEDICARE, BC, SELFPAY ==
[2023-01-04 08:27] VITALS: BMI 35.6
[2023-01-08] VITALS (8 sets, daily range): BP systolic 106–128; BP diastolic 57–71; PULSE 69–70; RESP 16–18; TEMP 36.7–36.8; O2SAT 98–100
[2023-01-08 11:07] LABS: POC Glucose,Bedside 132 (70-110)
== END 2023-01-08 12:18 | disposition home or self-care (01) ==
PROVIDERS: PCP Internal Medicine; Visit Provider Ophthalmology
PROC: (CPT 66982; principal; 2023-01-08 12:30)
DX: E11.36 Type 2 diabetes mellitus with diabetic cataract (principal); H25.9 Unspecified age-related cataract
CPT/HCPCS: 66982; 82962; V2632

== ENCOUNTER → 2023-02-05 11:26 | Outpatient (CLI) | payer MEDICARE, BC, SELFPAY ==
--- NOTE | 2023-02-05 11:34 | MM_ITS ---
PROCEDURE INFORMATION: Exam: MG Bilateral Screening 3D Mammography Exam date and time: 02/05/2023 12:24 PM Age: 62 years old Clinical indication: Screening examination TECHNIQUE: Imaging protocol: Bilateral Screening tomosynthesis and 2D mammography including computer-aided detection (CAD) when performed. COMPARISON: 1. MG MM DIG SCREENING MAMM BI W/CAD 12/15/2021 7:57 AM 2. MG MM DIG SCREENING MAMM BI W/CAD 12/18/2019 11:10 AM FINDINGS: MAMMOGRAPHY: Breast composition: There are scattered areas of fibroglandular density. Mass: None. Architectural distortion: None. Calcifications: No suspicious calcifications. Asymmetric density: None. Skin thickening: None. Axillary adenopathy: None. IMPRESSION: No mammographic evidence of malignancy. Annual screening is recommended unless otherwise clinically indicated. ASSESSMENT: BI-RADS Category 1: Negative
== END ==
PROVIDERS: PCP Internal Medicine; Visit Provider Internal Medicine
DX: Z12.31 Encounter for screening mammogram for malignant neoplasm of breast (principal)
CPT/HCPCS: 77063; 77067

== ENCOUNTER 2023-03-26 09:06 | Day surgery (SDC) | payer MEDICARE, BC, SELFPAY ==
[2023-03-26] VITALS (7 sets, daily range): BP systolic 118–167; BP diastolic 64–99; PULSE 69–72; RESP 16–18; TEMP 36.4–36.8; O2SAT 94–100; BMI 36.6
[2023-03-26] MEDS: TETRACAINE 0.5% OPTH SOL 15ML OP ×3 (09:35)
[2023-03-26] MEDS: PHENYLEPHRINE 2.5% OPHTH SOLN 2ML 0.0500000000000000028 ML OP ×3 (09:35→09:36)
[2023-03-26] MEDS: CYCLOPENTOLATE 2% OPHTH SOLN 2ML BOTTLE OP ×3 (09:36)
[2023-03-26 09:55] LABS: POC Glucose,Bedside 108 (70-110)
[2023-03-26] MEDS: TOBRAMYCIN/DEX OPTH SUSP 2.5ML OP (10:32)
[2023-03-26] MEDS: MIDAZOLAM 2MG/2ML VIAL 1 MG IV (10:32)
[2023-03-26] MEDS: TIMOLOL 0.5% OPTH SOLN 5ML OP (10:33)
[2023-03-26] MEDS: LIDOCAINE 1% PF 2ML AMPULE 2 ML IJ (10:33)
[2023-03-26] MEDS: SODIUM CHLORIDE 0.9% 10ML FLUSH SYRINGE 10 ML IV (10:33)
== END 2023-03-26 11:14 | disposition home or self-care (01) ==
PROVIDERS: PCP Nurse Practitioner Acute Care; Visit Provider Ophthalmology
PROC: (CPT 66982; principal; 2023-03-26 11:00)
DX: H25.812 Combined forms of age-related cataract, left eye (principal); H21.81 Floppy iris syndrome; E11.36 Type 2 diabetes mellitus with diabetic cataract; H25.9 Unspecified age-related cataract
CPT/HCPCS: 66982; 82962; V2632

== ENCOUNTER 2023-03-26 18:41 | Emergency (ER) | payer MEDICARE, BC, SELFPAY ==
[2023-03-26 18:48] VITALS: BP 128/63; PULSE 85; RESP 18; TEMP 36.7; O2SAT 98; BMI 36.6
--- NOTE | 2023-03-26 19:25 | ED_ITS ---
Discharge Plan Disposition Patient Disposition: Home, Self-Care Prescriptions Prescriptions: No Action atorvastatin 10 mg tablet 10 mg PO HS loratadine 10 mg tablet 10 mg PO DAILY metformin 500 mg tablet extended release 24 hr 500 mg PO DAILY duloxetine 30 mg capsule,delayed release(DR/EC) 60 mg PO DAILY duloxetine 60 mg capsule,delayed release(DR/EC) 60 mg PO DAILY amiodarone 200 mg tablet See Rx Instructions .ROUTE .COMPLEX Qty: 30 11RF Dose Instruction: TAKE 1 TABLET BY MOUTH ONCE DAILY Rx Instructions: TAKE 1 TABLET BY MOUTH ONCE DAILY guaifenesin [Mucus Relief ER] 1,200 mg tablet extended release 12hr See Rx Instructions .ROUTE .COMPLEX Qty: 60 11RF Dose Instruction: GIVE 1 TABLET BY MOUTH TWICE DAILY Rx Instructions: GIVE 1 TABLET BY MOUTH TWICE DAILY nortriptyline 10 capsule 10 mg PO HS furosemide 40 tablet 40 mg PO BID metoprolol tartrate 100 MG tablet 200 mg PO BID spironolactone 25 MG tablet 25 mg PO DAILY famotidine 20 MG tablet 20 mg PO BID apixaban 5 MG tablet 5 mg PO BID oxcarbazepine 300 mg tablet 300 mg PO BID Referrals Follow up/Referrals: Provider,Referral, MD [Primary Care Provider] - See instructions Activity Restrictions/Add. Instructions Additional Instructions/Restrictions: Your symptoms are consistent with sciatica without any red flags concerning for bony pathology or critical compression of your spinal cord or its roots that would require surgical intervention. I recommend that you follow-up with your primary care doctor to discuss your chronic pain medications. Clinical Impressions Clinical Impression: Sciatica Discharge ED Provider: Odell Smallwood General Adult HPI General Chief complaint: PAIN Stated complaint: LEG PAIN Time Seen by Provider: 03/26/23 19:17 Mode of Arrival: EMS Source of Information: Patient Limitations: No Limitations Description of Symptoms (Recalled from ER Triage Doc. by RN): pt arrives via EMS from [facility]. pt c/o R lower back pain that radiates down her leg to her knee. pt states this has been ongoing x1wk. no injury noted. pt is [place] pt has chronic BLE lymph edema pt reports she was here earlier today having cataract surgery. History of Present Illness HPI narrative: Patient is a resident of [facility] here for lower back pain on the right side radiating down the right aspect of her leg. States has been ongoing the last week. Denies any weakness in the lower extremities saddle anesthesia or urinary retention urinary incontinence. She states that she has had some improvement with [id number] medications. Denies any abdominal pain hematuria fevers chills midline back pain etc. Related Data Home Medications Medication Instructions Recorded Confirmed nortriptyline 10 mg capsule 10 mg PO HS Depression 06/20/17 03/26/23 furosemide 40 mg tablet 40 mg PO BID Fluid 12/30/17 03/26/23 metoprolol tartrate 100 mg tablet 200 mg PO BID Hypertension 12/30/17 03/26/23 spironolactone 25 mg tablet 25 mg PO DAILY Fluid 12/30/17 03/26/23 apixaban 5 mg tablet 5 mg PO BID AFIB 08/28/19 03/26/23 famotidine 20 mg tablet 20 mg PO BID GERD 08/28/19 03/26/23 atorvastatin 10 mg tablet 10 mg PO HS Cholesterol 01/19/20 03/26/23 loratadine 10 mg tablet 10 mg PO DAILY Allergy symptoms 01/19/20 03/26/23 oxcarbazepine 300 mg tablet 300 mg PO BID SEIZURES 10/27/21 03/26/23 metformin 500 mg tablet,extended 500 mg PO DAILY htn 01/01/22 03/26/23 release 24 hr duloxetine 30 mg capsule,delayed 60 mg PO DAILY mood 05/28/22 03/26/23 release duloxetine 60 mg capsule,delayed 60 mg PO DAILY 12/11/22 03/26/23 release Previous Rx's Medication Instructions Recorded amiodarone 200 mg tablet See Rx Instructions .Route 06/07/22 .COMPLEX #30 ea guaifenesin 1,200 mg tablet, See Rx Instructions .Route 12/12/22 extended release 12 hr (Mucus .COMPLEX #60 ea Relief ER) Allergies Allergy/AdvReac Type Severity Reaction Status Date / Time celecoxib [From CELEBREX] Allergy Unknown Unknown Verified 03/26/23 09:40 allergy reaction hydrocodone [From VICODIN] Allergy Unknown Unknown Verified 03/26/23 09:40 allergy reaction oxycodone [OXYCODONE] Allergy Unknown Unknown Verified 03/26/23 09:40 allergy reaction tramadol [From ULTRAM] Allergy Unknown Unknown Verified 03/26/23 09:40 allergy reaction Iodinated Contrast Media AdvReac Intermediate ITCHING Verified 03/26/23 09:40 [IODINATED CONTRAST MEDIA - ORAL AND] [facility] Disclaimer: The information contained in this section may have been updated after the patient was seen, as this information can be updated by other users. Medical History (Updated 03/26/23 @ 19:24 by Odell Smallwood MD) Acute bronchitis Adnexal cyst Allergic reaction Angina pectoris Arrhythmia Arthritis Arthritis of knee, right Arthritis of left knee Atrial fibrillation Atrial flutter Atypical chest pain Cervical disc disease Chest pain Cholelithiasis Congestive heart failure Contusion of right lower leg Coronary arteriosclerosis Coronary artery disease Diabetes Dyspnea Edema of lower extremity Gallbladder disease Hearing loss, bilateral HHD (hypertensive heart disease) Hiatal hernia History of gastroesophageal reflux (GERD) History of left heart catheterization History of pacemaker HLD (hyperlipidemia) HTN (hypertension) Hyperglycemia Hypokalemia Hypotension Infection due to ESBL-producing Escherichia coli Left femoral shaft fracture Lumbar facet arthropathy Lumbar spondylosis Lymphedema Migraine Otalgia Profound hearing loss of left ear Reflux esophagitis Right SNHL Sacroiliitis Tachycardia Uterine leiomyoma UTI (urinary tract infection) Surgical History Cardiac pacemaker in situ H/O arthroscopy of right knee Hx laparoscopic cholecystectomy Family History Other No significant family history Social History Smoking Status: Current every day smoker alcohol intake: never counseling provided: none substance use type: denies use current occupational status: disabled Travel in the last 8 weeks: None caregiver/support person: Yes household members: other housing: assisted living facility lives independently: No marital status: single number of children: 0 current occupational exposures/hazards: No caffeine: No special enio needs: No agree to transfusion: No do you feel safe at home: Yes victim of physical abuse: No victim of emotional abuse: No victim of sexual abuse: No would you like helpful sources: No ROS Obtained: Yes All systems reviewed & no additional complaints except as documented Physical Exam General General appearance: alert Respiratory Respiratory exam: Present normal lung sounds bilaterally Cardiovascular Cardiovascular exam: Present regular rate Back Exam Back exam: Present other (No midline tenderness there is normal neurovascular exam distal on the bilateral lower extremities no motor or sensory loss) Neurological Exam Neurological exam: Present alert Medical Decision Making Moody Inquiry Pt receiving controlled substance: No Vital Signs: 03/26/23 18:48 Temperature 98.1 F Temperature Source Oral Pulse Rate [Left] 85 Respiratory Rate 18 Blood Pressure [Right Arm] 128/63 Blood Pressure Mean [Right Arm] 84 Blood Pressure Source [Right Arm] Automatic Cuff Blood Pressure Position [Right Arm] Sitting 02 Sat by Pulse Oximetry 98 Medical Decision Narrative: Very well-appearing and comfortable 63-year-old female presenting today with intermittent right paraspinal back pain radiating down the right aspect of her leg. No red flags from history or physical standpoint to suggest any type of central compression or spinal nerve root compression. I do not suspect alternative diagnoses at this point no indication for imaging lab work etc. This is not consistent with a urinary tract infection pyelonephritis kidney stone etc. Abdominal exam is benign. She is already on NSAIDs and has been taking Tylenol. No indication for opiates she has been advised to follow-up with primary care doctor regarding further management of her pain. Additionally she is very poor historian and I do not want to prescribe medications have significant side effect such as steroids or things that could make her fall etc. She is been advised as stated above to discuss this further with her doctor to have an established relationship with her. Critical Care Critical Care Time Critical Care Time: No
--- NOTE | 2023-03-26 19:45 | PC.NURSE ---
attempted to call luis at this time. went to voicemail.
--- NOTE | 2023-03-26 19:48 | PC.NURSE ---
Called the web content & social media manager of [facility] for transportation for patient at this time.
[2023-03-26 20:03] VITALS: BP 112/75; PULSE 75; RESP 16; TEMP 36.8; O2SAT 98
== END 2023-03-26 20:05 | disposition home or self-care (01) ==
PROVIDERS: Emergency Provider Student in an Organized Health Care Education/Training Program
DX: M54.41 Lumbago with sciatica, right side (principal); M79.604 Pain in right leg; I89.0 Lymphedema, not elsewhere classified; I48.91 Unspecified atrial fibrillation; I48.92 Unspecified atrial flutter; I25.119 Atherosclerotic heart disease of native coronary artery with unspecified angina pectoris; I11.0 Hypertensive heart disease with heart failure; I50.9 Heart failure, unspecified; E11.9 Type 2 diabetes mellitus without complications; E78.5 Hyperlipidemia, unspecified; F17.200 Nicotine dependence, unspecified, uncomplicated
CPT/HCPCS: 99283

== ENCOUNTER 2023-11-27 13:00 | Inpatient (IN) | payer MEDICARE, BC, SELFPAY ==
[2023-11-27] VITALS (17 sets, daily range): BP systolic 122–159; BP diastolic 70–94; PULSE 69–75; RESP 16–20; TEMP 36.5–36.8; O2SAT 90–97; BMI 39.9
--- NOTE | 2023-11-27 12:59 | ECG_ITS ---
APPROVED REPORT Exam: Resting ECG HR:69 bpm ECG Measurements Heart Rate 69 AXES ME 296 P 180 QRSd 109 QRS -3 QT 445 T 28 QTc 465 Conclusion ELECTRONIC ATRIAL PACEMAKER POSSIBLE LATERAL MYOCARDIAL INFARCTION , PROBABLY OLD [30 ms Q WAVE IN I/aVL/V5/V6] MODERATE T-WAVE ABNORMALITY, CONSIDER ANTERIOR ISCHEMIA [-0.1+ mV T-WAVE IN V3/V4] ABNORMAL ECG UNCONFIRMED REPORT Electronically signed by : Atif Peres MD 11/28/2023 16:09:09
--- NOTE | 2023-11-27 13:07 | ECG_ITS ---
APPROVED REPORT Exam: Resting ECG HR:70 bpm ECG Measurements Heart Rate 70 AXES MO 315 P 112 QRSd 109 QRS -7 QT 428 T 53 QTc 448 Conclusion ELECTRONIC ATRIAL PACEMAKER ANTEROLATERAL MYOCARDIAL INFARCTION , OF INDETERMINATE AGE [40+ ms Q WAVE IN I/aVL/V3-V6] ABNORMAL ECG UNCONFIRMED REPORT Electronically signed by : Atif Peres MD 11/28/2023 16:09:03
--- NOTE | 2023-11-27 13:10 | ED_ITS ---
Discharge Plan Disposition Patient Disposition: Admitted Clinical Impressions Clinical Impression: Unstable angina, Non-ST elevation MD (NSTEMI) Discharge ED Provider: Josr Gil HPI General Chief Complaint: Chest Pain Stated Complaint: Chest pain Time Seen by Provider: 11/27/23 13:10 History of Present Illness HPI narrative: Please note that above description of symptoms, in this electronic medical record under categorization of recalled from ER triage doctor by RN are reflective of an initial nursing assessment, however, is not reflective of my full history and physical exam that was personally taken and clarified. Consequentially, this preceding description of symptoms, which may include the patient's categorized chief complaint in the EMR, do not reflect my personal clinical impression, and the ultimate description of history of present illness and patient stated complaints should be deferred to this section of the note. Unless stated otherwise or congruent with this section of the note, additional signs, symptoms, or incongruence should be interpreted as inaccurate with my clinical impression. Related Data Home Medications ?Medication ?Instructions ?Recorded ?Confirmed nortriptyline 10 mg capsule 10 mg PO HS Depression 06/20/17 03/26/23 furosemide 40 mg tablet 40 mg PO BID Fluid 12/30/17 03/26/23 metoprolol tartrate 100 mg tablet 200 mg PO BID Hypertension 12/30/17 03/26/23 spironolactone 25 mg tablet 25 mg PO DAILY Fluid 12/30/17 03/26/23 apixaban 5 mg tablet 5 mg PO BID AFIB 08/28/19 03/26/23 famotidine 20 mg tablet 20 mg PO BID GERD 08/28/19 03/26/23 atorvastatin 10 mg tablet 10 mg PO HS Cholesterol 01/19/20 03/26/23 loratadine 10 mg tablet 10 mg PO DAILY Allergy symptoms 01/19/20 03/26/23 oxcarbazepine 300 mg tablet 300 mg PO BID SEIZURES 10/27/21 03/26/23 metformin 500 mg tablet,extended 500 mg PO DAILY htn 01/01/22 03/26/23 release 24 hr duloxetine 30 mg capsule,delayed 60 mg PO DAILY mood 05/28/22 03/26/23 release duloxetine 60 mg capsule,delayed 60 mg PO DAILY 12/11/22 03/26/23 release Previous Rx's ?Medication ?Instructions ?Recorded guaifenesin 1,200 mg tablet, See Rx Instructions .Route 12/12/22 extended release 12 hr (Mucus .COMPLEX #60 ea Relief ER) amiodarone 200 mg tablet See Rx Instructions .Route 05/15/23 .COMPLEX #30 tabs Allergies Allergy/AdvReac Type Severity Reaction Status Date / Time celecoxib [From CELEBREX] Allergy Unknown Unknown Verified 03/26/23 09:40 allergy reaction hydrocodone [From VICODIN] Allergy Unknown Unknown Verified 03/26/23 09:40 allergy reaction oxycodone [OXYCODONE] Allergy Unknown Unknown Verified 03/26/23 09:40 allergy reaction tramadol [From ULTRAM] Allergy Unknown Unknown Verified 03/26/23 09:40 allergy reaction Iodinated Contrast Media AdvReac Intermediate ITCHING Verified 03/26/23 09:40 [IODINATED CONTRAST MEDIA - ORAL AND] [facility] Disclaimer: The information contained in this section may have been updated after the patient was seen, as this information can be updated by other users. Medical History (Updated 11/27/23 @ 14:16 by Josr Gil MD) Profound hearing loss of left ear Right SNHL Hearing loss, bilateral Otalgia Uterine leiomyoma Coronary artery disease History of left heart catheterization Arthritis Migraine History of gastroesophageal reflux (GERD) Gallbladder disease Congestive heart failure History of pacemaker Arrhythmia Left femoral shaft fracture Arthritis of left knee Arthritis of knee, right Allergic reaction Diabetes Reflux esophagitis Atypical chest pain Cervical disc disease Angina pectoris Dyspnea Contusion of right lower leg Adnexal cyst Lumbar facet arthropathy Lumbar spondylosis Sacroiliitis Hiatal hernia Cholelithiasis Infection due to ESBL-producing Escherichia coli UTI (urinary tract infection) Hypotension Hypokalemia Hyperglycemia Acute bronchitis Chest pain Lymphedema HHD (hypertensive heart disease) HLD (hyperlipidemia) HTN (hypertension) Tachycardia Atrial fibrillation Edema of lower extremity Atrial flutter Coronary arteriosclerosis Surgical History H/O arthroscopy of right knee Hx laparoscopic cholecystectomy Cardiac pacemaker in situ Family History Other No significant family history Social History Smoking Status: Former smoker alcohol intake: never counseling provided: none substance use type: denies use current occupational status: disabled Travel in the last 8 weeks: None caregiver/support person: Yes household members: other housing: assisted living facility lives independently: No marital status: single number of children: 0 current occupational exposures/hazards: No caffeine: No special enio needs: No agree to transfusion: No do you feel safe at home: Yes victim of physical abuse: No victim of emotional abuse: No victim of sexual abuse: No would you like helpful sources: No Other Medical History Have you received the Flu Vaccine for this season: No Have you received the Pneumonia Vaccine: No ROS Obtained: Yes All systems reviewed & no additional complaints except as documented Physical Exam General General appearance: alert Neck Neck exam: Present trachea midline Chest Chest inspection: Present normal inspection and symmetric chest wall rise Respiratory Respiratory exam: Present normal lung sounds bilaterally; Absent respiratory distress, wheezes, stridor, accessory muscle use or prolonged expiratory phase Cardiovascular Cardiovascular exam: Present regular rate, normal rhythm and other (Pulses equal and symmetric in upper and lower extremities) Abdominal Exam Abdominal exam: Present soft; Absent distention, tenderness or guarding Extremities Exam Extremities exam: Present edema (2+ nonpitting) Neurological Exam Neurological exam: Present alert, oriented X3 and CN II-XII intact; Absent motor sensory deficit Skin Skin exam: Present warm and dry; Absent cyanosis, diaphoresis or pallor HEART Score HEART Score HEART Score assessment performed?: Yes History (anamnesis): Highly suspicious ECG: Significant ST-deviation Age: >65 years Risk factors: 3 or more risk factors Troponin: </= normal limit HEART Score: 8 Critical Care Critical Care Time Critical Care Time: Yes (cardiac) Attestation: On 11/27/23, the high probability of a clinically significant, sudden or life threatening deterioration of the following system(s) required my full and direct attention, intervention and personal management. The time I documented below is in addition to time spent performing reported procedures but includes the following listed in this critical care notation. Total Time Total Critical Care Time: 45 Medical Decision Making Medical Records Medical records reviewed: Yes I reviewed the patient's medical records. Moody Inquiry Pt receiving controlled substance: No Moody was queried for this patient: No Vital Signs Vital Signs: 11/27/23 13:07 11/27/23 13:40 11/27/23 14:00 Temperature 98.2 F 98.1 F Temperature Source Oral Pulse Rate 71 70 Pulse Rate [Right Brachial] 70 Respiratory Rate 20 20 Blood Pressure 134/79 134/79 Blood Pressure [Right Arm] 122/75 Blood Pressure Mean [Right Arm] 90 Blood Pressure Source [Right Arm] Automatic Cuff Blood Pressure Position [Right Arm] Sitting 02 Sat by Pulse Oximetry 96 97 Oxygen Delivery Method Room Air Room Air Room Air Lab Data Labs: Lab Results 11/27/23 13:01: WBC 6.5, RBC 4.24, Hgb 8.5 L, Hct 30.4 L, MCV 71.6 L, MCH 20.1 L , MCHC 28.0 L, RDW 17.7 H, Plt Count 282, MPV 6.7 L, Neut % (Auto) 64.0, Lymph % (Auto) 22.7, [place] % (Auto) 8.5, Eos % (Auto) 3.1, Baso % (Auto) 1.7, Neut # (Auto) 4.1, Lymph # (Auto) 1.5, [place] # (Auto) 0.6, Eos # (Auto) 0.2, Baso # (Auto) 0.1, Sodium 138, Potassium 3.3 L, Chloride 101, Carbon Dioxide 30, Anion Gap 10.3, BUN 13, Creatinine 1.00, Estimated Creat Clear 90, Estimated GFR 56 L, Est GFR ( Amer) 68, Glucose 153 H, Calcium 9.4, Total Bilirubin 0.4, AST 40 H, ALT 40, Alkaline Phosphatase 239 H, Troponin I < 0.01, Total Protein 7.8, Albumin 4.1, Globulin 3.7 H, Albumin/Globulin Ratio 1.1, Lipase 151 11/27/23 13:01 11/27/23 13:01 Response Orders (Tests/Meds): ED MEDICATIONS Generic Name Dose Route Start Last Admin Trade Name Freq PRN Reason Stop Dose Admin Fentanyl Citrate 50 mcg 11/27/23 13:30 11/27/23 14:11 Fentanyl 100mcg/2ml Vial IV 11/28/23 01:30 100 mcg Q3MINP PRN Administration Sedation Fentanyl Citrate 25 mcg 11/27/23 13:30 Fentanyl 100mcg/2ml Vial IV 11/28/23 01:30 Q3MINP PRN Sedation Flumazenil 0.2 mg 11/27/23 13:30 Flumazenil 0.1mg/Ml 5ml Vial IV 11/28/23 01:30 NEEDED PRN Sedation Heparin Sodium (Porcine) 10,000 unit 10/16/24 13:30 11/27/23 14:12 Heparin 1,000 Units/Ml 10ml Vial (Scientific Illustrator) IV 11/27/23 17:31 5,000 unit NEEDED PRN Administration Emergency Box Clinical Education Academic Coordinator Hydralazine HCl 20 mg 11/27/23 13:30 Hydralazine 20mg/Ml Vial IV 11/27/23 17:31 ONCE PRN sbp>160 Adenosine 180 mg/ Sodium 90 mls @ 533.968 mls/hr 11/27/23 13:30 Chloride IV 11/27/23 17:31 ONCE PRN fractional flow reserve 180 MCG/KG/MIN Adenosine 90 mg/ Sodium 90 mls @ 1,067.936 mls/hr 11/27/23 13:30 Chloride IV 11/27/23 17:31 ONCE PRN fractional flow reserve 180 MCG/KG/MIN Sodium Chloride 1,000 mls @ 25 mls/hr 11/27/23 13:30 11/27/23 14:12 Sod Chloride 0.9% 500ml Bag IV 11/28/23 13:31 25 mls/hr .Q25H MARIXA Administration Labetalol HCl 20 mg 11/27/23 13:30 Labetalol 20mg/4ml Syringe IV 11/27/23 17:31 ONCE PRN sbp>160 Midazolam HCl 1 mg 11/27/23 13:30 Midazolam 2mg/2ml Vial IV 11/28/23 01:30 Q3MINP PRN Sedation Midazolam HCl 1 mg 11/27/23 13:30 11/27/23 14:12 Midazolam Hcl 1mg/Ml 5ml Vial IV 11/28/23 01:30 5 mg Q3MINP PRN Administration Sedation Naloxone HCl 0.4 mg 11/27/23 13:30 Naloxone 0.4mg/Ml Vial IV 11/28/23 01:30 Q5MINP PRN Decreased Respirations Nitroglycerin 800 mcg 11/27/23 13:30 11/27/23 14:13 Nitroglycerin 800mcg/8ml Syr (Scientific Illustrator) IA 11/27/23 17:31 800 mcg NEEDED PRN Administration Emergency Box Clinical Education Academic Coordinator Protamine Sulfate 50 mg 11/27/23 13:30 Protamine Sulfate 50mg/5ml Vial (Scientific Illustrator) IV 11/27/23 17:31 ONCE PRN act>200 Discontinued Medications Generic Name Dose Route Start Last Admin Trade Name Mehreen PRN Reason Stop Dose Admin Aspirin 325 mg 11/27/23 13:20 Aspirin 325mg Tablet PO 11/27/23 13:21 ONCE ONE Diphenhydramine HCl 50 mg 11/27/23 13:30 11/27/23 14:11 Diphenhydramine 50mg/Ml Vial IV 11/27/23 13:31 50 mg ONCE ONE Administration Famotidine 20 mg 11/27/23 13:30 11/27/23 14:11 Famotidine 20mg/2ml Vial IV 11/27/23 13:31 20 mg ONCE ONE Administration Heparin Sodium/Sodium Chloride 3,000 unit 11/27/23 13:30 11/27/23 14:12 Heparin 1,000 Units/500ml Ns (Scientific Illustrator) IV 11/27/23 13:31 3,000 unit ONCE ONE Administration Lidocaine HCl 20 ml 11/27/23 13:30 11/27/23 14:11 Lidocaine 1% 10ml Mdv IJ 11/27/23 13:31 10 ml ONCE ONE Administration Lidocaine HCl 20 ml 11/27/23 13:30 Lidocaine 1% 5ml Pf Vial IJ 11/27/23 13:31 ONCE ONE Methylprednisolone Sodium Succinate 125 mg 11/27/23 13:30 11/27/23 14:11 Methylprednisolone Sod Succ 125mg Vial IV 11/27/23 13:31 125 mg ONCE ONE Administration Verapamil HCl 2.5 mg 11/27/23 13:30 11/27/23 14:11 Verapamil 2.5mg/Ml 2ml Vial IV 11/27/23 13:31 2.5 mg ONCE ONE Administration ORDERS Category Date Time Status CBC w/Auto Diff [Complete Blood Count Auto Diff] Stat Lab 11/27/23 13:01 Completed CMP [Comprehensive Metabolic Panel] Stat Lab 11/27/23 13:01 Completed HIV (1&2) Antibody Rapid Stat Lab 11/27/23 13:13 Ordered Hep C Ab with Reflex to RNA Stat Lab 11/27/23 13:13 Ordered Lactic Acid Stat Lab 11/27/23 13:20 Ordered Lipase Stat Lab 11/27/23 13:01 Completed NT Pro Brain Natriuretic Pep. Stat Lab 11/27/23 13:01 Received Trop I [Troponin I] Stat Lab 11/27/23 13:01 Completed Troponin I Q3H Lab 11/27/23 16:30 Ordered Troponin I Q3H Lab 11/27/23 19:30 Ordered MDM Narrative Medical Decision Narrative: 63-year-old female history of hypertension, hyperlipidemia, CAD without stenting, atrial fibrillation on eliquis, CHF with pacemaker in place, lymphedema presenting with chest pain. Patient states that she had chest pain starting today about an hour prior to arrival. She was sitting at lunch, started having left-sided chest pain that did not radiate, but also had associated bilateral upper extremity heaviness and numbness. Associated left- sided jaw numbness. No diaphoresis, shortness of breath, vomiting, or any other associated symptoms. History was obtained via conversation with patient. On arrival, patient hemodynamically stable, alert, oriented x4, appropriate, GCS 15, moving all extremities spontaneously, pupils equal and reactive to light. Full physical exam performed and significant for incredibly hard of hearing 63-year-old female who does not appear to be in any acute distress. Cardiac exam without murmurs gallops or rubs. Lungs are clear to auscultation. Differential includes microvascular coronary artery disease, CHF, ACS, MD, coronary artery dissection, pneumothorax, PE, dissection, pericarditis, myocarditis, pneumothorax, aortic aneurysm, pneumonia, bronchitis, among others. Patient was given 324 mg aspirin for symptomatic management and correction of underlying abnormalities. Patient placed on continuous cardiac monitoring and continuous pulse ox with initial blood pressure 122/75, heart rate 70, saturation 96% on room air. Independent interpretation of EKG shows atrial paced rhythm with concern for anterior ischemia T wave inversions and ST depressions V1 through V4. No reciprocal change. Posterior EKG similar. Workup independently interpreted and significant for nonactionable CBC or chemistry. Troponin pending at time of catheterization lab. Chest x-ray also pending at time of catheterization lab. Heart score 8. Given patient's clinical history, EKG, symptoms, cardiology was contacted. Recommended catheterization lab. Because patient high risk for clinical decompensation, deemed appropriate for inpatient admission. Results were relayed to patient who voiced understanding and patient was agreeable to inpatient admission and management. Patient was admitted to the hospital for further definitive management. Shaft Tender disclaimer Much of this encounter note is an electronic care companion spoken language to printed text. Electronic care companion of the spoken language may permit errors. Although I have reviewed the note, some errors may still exist.
--- NOTE | 2023-11-27 13:28 | IR_ITS ---
APPROVED REPORT Patient Location: Inpatient Artificial Glass Eye Maker: Didier Davila, RT (R) PROCEDURES Selective coronary angiogram Drug-eluting stent deployment to the mid LAD INDICATION Unstable angina, Dynamic anterior wall EKG abnormalities, Informed consent was obtained prior to the procedure. COMPLICATIONS NONE Estimated Blood Loss: LESS THAN 10 ML TECHNIQUE One percent lidocaine used to anesthetize the right anterior aspect of the wrist. The right radial artery was accessed via the Seldinger technique. A 6 [place] sheath was placed in the right radial artery. 2.5 mg of Verapamil, 800 mcg of nitroglycerin, 1mg Lidocaine and 5000 U Heparin were given through the arterial sheath. The 6 [place] JL 3 guide catheter were used to perform selective coronary angiogram. At the end of the diagnostic angiogram therapeutic heparin was administered giving a therapeutic ACT and the guide catheter was placed in left main artery followed by Choice PT for support wire down the LAD. A 2.5 x 30 mm Josemanuel frontier stent was deployed at 20 donya reducing the severe stenosis to 0%. KATHY-3 flow was present before and after the procedure. At the end the procedure the apparatus was removed the sheath was removed and hemostasis was achieved using TR banding patient was transferred to the postop putting in stable condition ANGIOGRAPHIC RESULTS The left main artery Normal The left anterior descending artery Is proximally normal followed by tandem 70% lesions in the mid LAD just distal to a large septal bagging machine operator and large first diagonal artery The circumflex artery Nondominant gives rise to 3 medium sized first obtuse marginal artery. The proximal circumflex artery has a 10 to 20% luminal irregularity with 20 to 30% stenosis in the mid second obtuse marginal artery The right coronary artery Is large and dominant and has proximal to mid vessel 40 to 50% concentric stenosis The BOLES ventriculogram reveals Not performed The left ventricular end-diastolic pressure Not measured IMPRESSION Severe mid LAD disease as described above Successful stenting of the mid LAD severe disease reduced to 0% with 1 drug-eluting stent Moderate disease in the proximal to mid dominant right coronary PLAN 1. Aspirin and Plavix 2. LDL less than 55 to be achieved with high intensity statin 3. Avoidance of tobacco products 4. Risk factor modification 5. Cardiac rehabilitation Electronically signed by : Curt Merlos MD 11/27/2023 14:42:35
[2023-11-27 13:29] LABS: Basophils # 0.1 K/mm3 (0-0.2); Basophils % 1.7 % (0.1-2.0); Eosinophils # 0.2 K/mm3 (0.0-0.4); Eosinophils % 3.1 % (0.1-12.0); Hematocrit 30.4 % (37.0-47.0); Hemoglobin 8.5 g/dL (12.2-16.2); Lymphocytes # 1.5 K/mm3 (0.7-4.5); Lymphocytes % 22.7 % (10-50); Mean Corpuscular Hemoglobin 20.1 pg (27.0-31.2); Mean Corpuscular Volume 71.6 fl (81-99); Mean Platelet Volume 6.7 fl (7.4-10.4); Monocytes # 0.6 K/mm3 (0.1-1.0); Monocytes % 8.5 % (1.7-9.3); Neutrophils # 4.1 K/mm3 (1.8-7.8); Platelet Count 282 K/mm3 (142-424); Red Blood Count 4.24 M/mm3 (4.20-5.40); Red Cell Distribution Width 17.7 % (11.5-17.5); White Blood Count 6.5 K/mm3 (4.8-10.8)
[2023-11-27 13:35] LABS: Albumin Level 4.1 g/dl (3.5-5.0); Chloride 101 mmol/L (98-107); Potassium 3.3 mmoL/L (3.5-5.1); Sodium 138 mmol/L (136-145)
[2023-11-27 13:38] LABS: Alanine Aminotransferase 40 U/L (12-78); Albumin/Globulin Ratio 1.1 (1.1-1.8); Alkaline Phosphatase 239 U/L (38-126); Anion Gap 10.3 mEq/L (5-15); Aspartate Amino Transferase 40 U/L (14-36); Bilirubin,Total 0.4 mg/dl (0.2-1.3); Blood Urea Nitrogen 13 mg/dl (7-17); Carbon Dioxide 30 mmol/L (22.0-30.0); Creatinine Clearance Estimated 90 mL/min (50-200); Estimated Glomerular Filt Rate 56 ml/min (>60); GFR (African American) 68 ML/MIN (>60); Globulin 3.7 g/dL (1.3-3.2); Glucose 153 mg/dl (74-100); Lipase 151 U/L (23-300); Total Protein,Serum 7.8 g/dl (6.3-8.2)
[2023-11-27 13:39] LABS: Calcium 9.4 mg/dl (8.4-10.2)
[2023-11-27 13:52] LABS: Troponin I < 0.01 ng/ml (0.00-0.034)
[2023-11-27] MEDS: diphenhydrAMINE 50MG/ML VIAL 50 MG IV (14:11)
[2023-11-27] MEDS: FENTANYL 100MCG/2ML VIAL 50 MCG IV (14:11)
[2023-11-27] MEDS: METHYLPREDNISOLONE SOD SUCC 125MG VIAL 125 MG IV (14:11)
[2023-11-27] MEDS: FAMOTIDINE 20MG/2ML VIAL 20 MG IV (14:11)
[2023-11-27] MEDS: LIDOCAINE 1% 10ML MDV 20 ML IJ (14:11)
[2023-11-27] MEDS: VERAPAMIL 2.5MG/ML 2ML VIAL 2.5 MG IV (14:11)
[2023-11-27] MEDS: HEPARIN 1,000 UNITS/500ML NS (CATH LAB) 3000 UNIT IV (14:12)
[2023-11-27] MEDS: MIDAZOLAM HCL 1MG/ML 5ML VIAL 1 MG IV (14:12)
[2023-11-27] MEDS: 0.9 % SODIUM CHLORIDE 500 ML 25 ML IV (14:12)
[2023-11-27] MEDS: HEPARIN 1,000 UNITS/ML 10ML VIAL (CATH LAB) 10000 UNIT IV (14:12)
[2023-11-27] MEDS: NITROGLYCERIN 800MCG/8ML SYR (CATH LAB) 800 MCG IA (14:13)
--- NOTE | 2023-11-27 14:18 | EXP.HP ---
History of Present Illness *Admission Date: 11/27/23 *Reason for visit:: CHest pain *History of present illness: Jaci Steiner is a 63 year old female who presented to the ED with chest pain. She has a PMH of CAD, HTN, HLD, PAfib on Eliquis, s/p Pacemaker placement and HFpEF. this pt present with chest pain that started while she was sitting and eating lunch. this persisted for an hour prior to coming to the ED. The patient states this is a left sided CP that radiated to the BUEs and jaw that caused numbness. SOB was associated with the CP. this is a severe pain. CP did not improve with medication in the ED. Pt had dynamic EKG changes and will be taken directly to the microbiology lab technician. Denies palpitations, fever, chills, N/V/D, PND or orthopnea. She has chronic BLE edema due to chronic lymphedema. [facility] Disclaimer: The information contained in this section may have been updated after the patient was seen, as this information can be updated by other users. Medical History Abnormal EKG Lymphedema (HFpEF) heart failure with preserved ejection fraction Paroxysmal atrial fibrillation Profound hearing loss of left ear Right SNHL Hearing loss, bilateral Otalgia Uterine leiomyoma Coronary artery disease History of left heart catheterization Arthritis Migraine History of gastroesophageal reflux (GERD) Gallbladder disease Congestive heart failure History of pacemaker Arrhythmia Left femoral shaft fracture Arthritis of left knee Arthritis of knee, right Allergic reaction Diabetes Reflux esophagitis Atypical chest pain Cervical disc disease Angina pectoris Dyspnea Contusion of right lower leg Adnexal cyst Lumbar facet arthropathy Lumbar spondylosis Sacroiliitis Hiatal hernia Cholelithiasis Infection due to ESBL-producing Escherichia coli UTI (urinary tract infection) Hypotension Hypokalemia Hyperglycemia Acute bronchitis Chest pain HHD (hypertensive heart disease) HLD (hyperlipidemia) HTN (hypertension) Tachycardia Atrial fibrillation Edema of lower extremity Atrial flutter Coronary arteriosclerosis Surgical History H/O arthroscopy of right knee Hx laparoscopic cholecystectomy Cardiac pacemaker in situ Family History Other No significant family history Social History (Updated 11/27/23 @ 16:51 by Alea Roy RN) Smoking Status: Former smoker alcohol intake: never counseling provided: none substance use type: denies use current occupational status: disabled Travel in the last 8 weeks: None caregiver/support person: Yes household members: other housing: assisted living facility lives independently: No marital status: single number of children: 0 current occupational exposures/hazards: No caffeine: No special enio needs: No agree to transfusion: No do you feel safe at home: Yes victim of physical abuse: No victim of emotional abuse: No victim of sexual abuse: No would you like helpful sources: No Other Medical History Have you received the Flu Vaccine for this season: No Have you received the Pneumonia Vaccine: No Meds Home Medications and Allergies Home Medications ?Medication ?Instructions ?Recorded ?Confirmed ?Type nortriptyline 10 mg capsule 10 mg PO HS Depression 06/20/17 11/27/23 History furosemide 40 mg tablet 40 mg PO BID Fluid 12/30/17 11/27/23 History metoprolol tartrate 100 mg tablet 200 mg PO BID Hypertension 12/30/17 11/27/23 History spironolactone 25 mg tablet 25 mg PO DAILY Fluid 12/30/17 11/27/23 History apixaban 5 mg tablet 5 mg PO BID AFIB 08/28/19 11/27/23 History famotidine 20 mg tablet 20 mg PO BID GERD 08/28/19 11/27/23 History atorvastatin 10 mg tablet 10 mg PO HS Cholesterol 01/19/20 11/27/23 History oxcarbazepine 300 mg tablet 300 mg PO BID SEIZURES 10/27/21 11/27/23 History metformin 500 mg tablet,extended 500 mg PO BID DM 01/01/22 11/27/23 History release 24 hr duloxetine 30 mg capsule,delayed 60 mg PO DAILY mood 05/28/22 11/27/23 History release duloxetine 60 mg capsule,delayed 60 mg PO DAILY 12/11/22 11/27/23 History release amiodarone 200 mg tablet 200 mg PO DAILY 11/27/23 11/27/23 History New Prescriptions to Start Prescriptions: Allergies Allergy/AdvReac Type Severity Reaction Status Date / Time celecoxib [From CELEBREX] Allergy Unknown Unknown Verified 03/26/23 09:40 allergy reaction hydrocodone [From VICODIN] Allergy Unknown Unknown Verified 03/26/23 09:40 allergy reaction oxycodone [OXYCODONE] Allergy Unknown Unknown Verified 03/26/23 09:40 allergy reaction tramadol [From ULTRAM] Allergy Unknown Unknown Verified 03/26/23 09:40 allergy reaction Iodinated Contrast Media AdvReac Intermediate ITCHING Verified 03/26/23 09:40 [IODINATED CONTRAST MEDIA - ORAL AND] Exam Data for Last 24 hours Vital signs and Labs for Last 24 Hours: Temp Pulse Resp BP Pulse Ox O2 Del Method 98.1 F 70 20 134/79 97 Room Air 11/27/23 14:00 11/27/23 14:00 11/27/23 14:00 11/27/23 14:00 11/27/23 13:40 11/27/23 14:00 Laboratory Results - last 24 hr 11/27/23 13:01: WBC 6.5, RBC 4.24, Hgb 8.5 L, Hct 30.4 L, MCV 71.6 L, MCH 20.1 L, MCHC 28.0 L, RDW 17.7 H, Plt Count 282, MPV 6.7 L, Neut % (Auto) 64.0, Lymph % (Auto) 22.7, [place] % (Auto) 8.5, Eos % (Auto) 3.1, Baso % (Auto) 1.7, Neut # (Auto) 4.1, Lymph # (Auto) 1.5, Bradley # (Auto) 0.6, Eos # (Auto) 0.2, Baso # (Auto) 0.1, Sodium 138, Potassium 3.3 L, Chloride 101, Carbon Dioxide 30, Anion Gap 10.3, BUN 13, Creatinine 1.00, Estimated Creat Clear 90, Estimated GFR 56 L, Est GFR ( Amer) 68, Glucose 153 H, Calcium 9.4, Total Bilirubin 0.4, AST 40 H, ALT 40, Alkaline Phosphatase 239 H, Troponin I < 0.01, Total Protein 7.8, Albumin 4.1, Globulin 3.7 H, Albumin/Globulin Ratio 1.1, Lipase 151 I & O for Last 24 hours: Intake & Output 11/24/23 11/25/23 11/26/23 11/27/23 23:59 23:59 23:59 23:59 Weight 98.883 kg Constitutional Constitutional: no acute distress Comments: Very hard of hearing. *Routine HEENT Exam Head: Present normocephalic Eye: Present EOMI and PERRL ENT: Present mucous membranes moist *Routine Neck Exam Neck: Present supple; Absent lymphadenopathy *Routine Respiratory Exam Respiratory: Present CTA bilaterally *Routine Cardiovascular Exam Cardiovascular: Present RRR *Routine Abdominal Exam Abdominal: Present soft and normoactive bowel sounds; Absent tenderness *Routine Rectal Exam Rectal:: deferred *Routine Genitalia Exam Genitalia:: deferred *Routine Extremities Exam Extremities: Absent cyanosis, clubbing or edema *Routine Skin Exam Skin: Present warm; Absent rash *Routine Neurological Exam Neurological: Present alert and oriented X3 Assessment and Plan *Assessment and plan (1) Abnormal EKG: Status: Acute Category: Medical Code(s): R94.31 - Abnormal electrocardiogram [ECG] [EKG] (2) (HFpEF) heart failure with preserved ejection fraction: Status: Acute Qualifiers: Heart failure chronicity: chronic Qualified Code(s): I50.32 - Chronic diastolic (congestive) heart failure Category: Medical Code(s): I50.30 - Unspecified diastolic (congestive) heart failure (3) Unstable angina: Status: Acute Category: Medical Code(s): I20.0 - Unstable angina (4) Paroxysmal atrial fibrillation: Status: Acute Category: Medical Code(s): I48.0 - Paroxysmal atrial fibrillation Plan Jaci Steienr is a 63 year old female who presented to the ED with chest pain. She has a PMH of CAD, HTN, HLD, PAfib on Eliquis, s/p Pacemaker placement, HFpEF, diabetes. this pt present with chest pain that started while she was sitting and eating lunch. this persisted for an hour prior to coming to the ED. The patient states this is a left sided CP that radiated to the BUEs and jaw that caused numbness. SOB was associated with the CP. this is a severe pain. CP did not improve with medication in the ED. Pt had dynamic EKG changes and will be taken directly to the microbiology lab technician. Denies palpitations, fever, chills, N/V/D, PND or orthopnea. She has chronic BLE edema due to chronic lymphedema. #CAD #Unstable angina - S/p PCI with 1 stend in mid LAD today 11/27/23. - Sitting without chest pain, SOB after procedure. - Aspirin 81mg, Plavix 75mg, atorvastatin 40mg. Given Plavix 600mg load. - Follow-up ECHO. - Follow-up A1c, lipid panel, TSH for risk stratification. #Afib - Stable, rate controlled, pacing. - Resumed home amio, metoprolol, Eliquis. #HFpEF - Euvolemic at this time. - Resumed home Lasix 40 BID. #Diabetes - Follow-up morning A1c. - Resumed home metformin. - LDSSI, ACHS glucose checks. FULL CODE
--- NOTE | 2023-11-27 14:19 | EXP.CARD.CON ---
History of Present Illness History of Present Illness Consult date: 11/27/23 Requesting physician: Josr Gil Consult reason: chest pain Chief complaint: chest pain History of present illness: This is a 63 year old female who presented to the ED with chest pain. She has a PMH of CAD, HTN, HLD, PAfib on Eliquis, s/p Pacemaker placement and HFpEF. this pt present with chest pain that started while she was sitting and eating lunch. this persisted for an hour prior to coming to the ED. The patient states this is a left sided CP that radiated to the BUEs and jaw that caused numbness. SOB was associated with the CP. this is a severe pain. CP did not improve with medication in the ED. Pt had dynamic EKG changes and will be taken directly to the lab support service tech. Denies palpitations, fever, chills, N/V/D, PND or orthopnea. She has chronic BLE edema due to chronic lymphedema. [facility] Disclaimer: The information contained in this section may have been updated after the patient was seen, as this information can be updated by other users. Medical History (Updated 11/27/23 @ 14:38 by Curt Merlos MD) Abnormal EKG Lymphedema (HFpEF) heart failure with preserved ejection fraction Paroxysmal atrial fibrillation Profound hearing loss of left ear Right SNHL Hearing loss, bilateral Otalgia Uterine leiomyoma Coronary artery disease History of left heart catheterization Arthritis Migraine History of gastroesophageal reflux (GERD) Gallbladder disease Congestive heart failure History of pacemaker Arrhythmia Left femoral shaft fracture Arthritis of left knee Arthritis of knee, right Allergic reaction Diabetes Reflux esophagitis Atypical chest pain Cervical disc disease Angina pectoris Dyspnea Contusion of right lower leg Adnexal cyst Lumbar facet arthropathy Lumbar spondylosis Sacroiliitis Hiatal hernia Cholelithiasis Infection due to ESBL-producing Escherichia coli UTI (urinary tract infection) Hypotension Hypokalemia Hyperglycemia Acute bronchitis Chest pain HHD (hypertensive heart disease) HLD (hyperlipidemia) HTN (hypertension) Tachycardia Atrial fibrillation Edema of lower extremity Atrial flutter Coronary arteriosclerosis Surgical History H/O arthroscopy of right knee Hx laparoscopic cholecystectomy Cardiac pacemaker in situ Family History Other No significant family history Social History Smoking Status: Former smoker alcohol intake: never counseling provided: none substance use type: denies use current occupational status: disabled Travel in the last 8 weeks: None caregiver/support person: Yes household members: other housing: assisted living facility lives independently: No marital status: single number of children: 0 current occupational exposures/hazards: No caffeine: No special enio needs: No agree to transfusion: No do you feel safe at home: Yes victim of physical abuse: No victim of emotional abuse: No victim of sexual abuse: No would you like helpful sources: No Review of Systems Review of Systems Review of systems:: pertinent systems reviewed and negative unless documented below Constitutional Constitutional: Reports system reviewed and no additional complaints, except as documented Eyes Eyes: Reports system reviewed and no additional complaints, except as documented ENT Ears, Nose, Mouth, and Throat: Reports system reviewed and no additional complaints, except as documented *Cardiovascular Cardiovascular: Reports system reviewed and no additional complaints, except as documented, Reports chest pain, Reports chest pain at rest, Reports chest pain with activity, Reports dyspnea, Reports dyspnea on exertion, Reports leg edema and Reports pedal edema *Respiratory Respiratory: Reports system reviewed and no additional complaints, except as documented, Reports dyspnea and Reports dyspnea on exertion *Gastrointestinal Gastrointestinal: Reports system reviewed and no additional complaints, except as documented *Genitourinary Genitourinary: Reports system reviewed and no additional complaints, except as documented *Musculoskeletal Musculoskeletal: Reports system reviewed and no additional complaints, except as documented Integumentary/Breasts Skin/Breast: Reports system reviewed and no additional complaints, except as documented *Neurologic Neurologic: Reports system reviewed and no additional complaints, except as documented Psychiatric Psychiatric: Reports system reviewed and no additional complaints, except as documented Endocrine Endocrine: Reports system reviewed and no additional complaints, except as documented Hematologic/Lymphatic Hematologic/Lymphatic: Reports system reviewed and no additional complaints, except as documented Allergic/Immunologic Allergic/Immunologic: Reports system reviewed and no additional complaints, except as documented Exam Data for Last 24 hours Vital signs and Labs for Last 24 Hours: Temp Pulse Resp BP Pulse Ox O2 Del Method 98.1 F 70 20 134/79 97 Room Air 11/27/23 14:00 11/27/23 14:00 11/27/23 14:00 11/27/23 14:00 11/27/23 13:40 11/27/23 14:00 Laboratory Results - last 24 hr 11/27/23 13:01: WBC 6.5, RBC 4.24, Hgb 8.5 L, Hct 30.4 L, MCV 71.6 L, MCH 20.1 L, MCHC 28.0 L, RDW 17.7 H, Plt Count 282, MPV 6.7 L, Neut % (Auto) 64.0, Lymph % (Auto) 22.7, [place] % (Auto) 8.5, Eos % (Auto) 3.1, Baso % (Auto) 1.7, Neut # (Auto) 4.1, Lymph # (Auto) 1.5, [place] # (Auto) 0.6, Eos # (Auto) 0.2, Baso # (Auto) 0.1, Sodium 138, Potassium 3.3 L, Chloride 101, Carbon Dioxide 30, Anion Gap 10.3, BUN 13, Creatinine 1.00, Estimated Creat Clear 90, Estimated GFR 56 L, Est GFR ( Amer) 68, Glucose 153 H, Calcium 9.4, Total Bilirubin 0.4, AST 40 H, ALT 40, Alkaline Phosphatase 239 H, Troponin I < 0.01, Total Protein 7.8, Albumin 4.1, Globulin 3.7 H, Albumin/Globulin Ratio 1.1, Lipase 151 I & O for Last 24 hours: Intake & Output 11/25/23 11/26/23 11/27/23 11/28/23 11:59 11:59 11:59 11:59 Weight 218 lb Constitutional Constitutional: no acute distress and obese *Routine HEENT Exam Head: Present normocephalic Eye: Present EOMI and PERRL ENT: Present mucous membranes moist *Routine Neck Exam Neck: Present supple *Routine Respiratory Exam Respiratory: Present CTA bilaterally; Absent accessory muscle use *Routine Cardiovascular Exam Cardiovascular: Present RRR, Normal S1 and Normal S2; Absent murmur *Routine Abdominal Exam Abdominal: Present soft and normoactive bowel sounds; Absent tenderness or distended *Routine Extremities Exam Extremities: Present edema (chronic BLE lymphedema); Absent cyanosis or clubbing *Routine Skin Exam Skin: Present intact and warm; Absent cyanosis or erythema *Routine Neurological Exam Neurological: Present alert, oriented X3 and CN II-XII intact Routine Psychiatric Exam Psychiatric: Present normal affect Meds Home Medications and Allergies Home Medications ?Medication ?Instructions ?Recorded ?Confirmed ?Type nortriptyline 10 mg capsule 10 mg PO HS Depression 06/20/17 03/26/23 History furosemide 40 mg tablet 40 mg PO BID Fluid 12/30/17 03/26/23 History metoprolol tartrate 100 mg tablet 200 mg PO BID Hypertension 12/30/17 03/26/23 History spironolactone 25 mg tablet 25 mg PO DAILY Fluid 12/30/17 03/26/23 History apixaban 5 mg tablet 5 mg PO BID AFIB 08/28/19 03/26/23 History famotidine 20 mg tablet 20 mg PO BID GERD 08/28/19 03/26/23 History atorvastatin 10 mg tablet 10 mg PO HS Cholesterol 01/19/20 03/26/23 History loratadine 10 mg tablet 10 mg PO DAILY Allergy symptoms 01/19/20 03/26/23 History oxcarbazepine 300 mg tablet 300 mg PO BID SEIZURES 10/27/21 03/26/23 History metformin 500 mg tablet,extended 500 mg PO DAILY htn 01/01/22 03/26/23 History release 24 hr duloxetine 30 mg capsule,delayed 60 mg PO DAILY mood 05/28/22 03/26/23 History release duloxetine 60 mg capsule,delayed 60 mg PO DAILY 12/11/22 03/26/23 History release guaifenesin 1,200 mg tablet, See Rx Instructions .Route 12/12/22 03/26/23 Rx extended release 12 hr (Mucus .COMPLEX #60 ea Relief ER) amiodarone 200 mg tablet See Rx Instructions .Route 05/15/23 Rx .COMPLEX #30 tabs New Prescriptions to Start Prescriptions: Allergies Allergy/AdvReac Type Severity Reaction Status Date / Time celecoxib [From CELEBREX] Allergy Unknown Unknown Verified 03/26/23 09:40 allergy reaction hydrocodone [From VICODIN] Allergy Unknown Unknown Verified 03/26/23 09:40 allergy reaction oxycodone [OXYCODONE] Allergy Unknown Unknown Verified 03/26/23 09:40 allergy reaction tramadol [From ULTRAM] Allergy Unknown Unknown Verified 03/26/23 09:40 allergy reaction Iodinated Contrast Media AdvReac Intermediate ITCHING Verified 03/26/23 09:40 [IODINATED CONTRAST MEDIA - ORAL AND] Assessment and Plan *Assessment and plan (1) Unstable angina: Status: Acute Category: Medical Code(s): I20.0 - Unstable angina (2) Coronary artery disease: Status: Acute Qualifiers: Coronary Disease-Associated Artery/Lesion type: [place] artery [place] vs. transplanted heart: [place] heart Associated angina: with other forms of angina Qualified Code(s): I25.118 - Atherosclerotic heart disease of [place] coronary artery with other forms of angina pectoris Category: Medical Code(s): I25.10 - Atherosclerotic heart disease of [place] coronary artery without angina pectoris (3) HTN (hypertension): Status: Acute Qualifiers: Hypertension type: essential hypertension Qualified Code(s): I10 - Essential (primary) hypertension Category: Medical Code(s): I10 - Essential (primary) hypertension (4) HLD (hyperlipidemia): Status: Acute Qualifiers: Hyperlipidemia type: mixed hyperlipidemia Qualified Code(s): E78.2 - Mixed hyperlipidemia Category: Medical Code(s): E78.5 - Hyperlipidemia, unspecified (5) Diabetes: Status: Chronic Qualifiers: Diabetes mellitus type: type 2 Diabetes mellitus assisted insulin use: without screen room operator use Diabetes mellitus complication status: without complication Qualified Code(s): E11.9 - Type 2 diabetes mellitus without complications Category: Medical Code(s): E11.9 - Type 2 diabetes mellitus without complications (6) Cardiac pacemaker in situ: Status: Chronic Category: Surgical Code(s): Z95.0 - Presence of cardiac pacemaker (7) Paroxysmal atrial fibrillation: Status: Acute Category: Medical Code(s): I48.0 - Paroxysmal atrial fibrillation (8) (HFpEF) heart failure with preserved ejection fraction: Status: Acute Qualifiers: Heart failure chronicity: chronic Qualified Code(s): I50.32 - Chronic diastolic (congestive) heart failure Category: Medical Code(s): I50.30 - Unspecified diastolic (congestive) heart failure (9) Lymphedema: Status: Acute Category: Medical Code(s): I89.0 - Lymphedema, not elsewhere classified (10) Abnormal EKG: Status: Acute Category: Medical Code(s): R94.31 - Abnormal electrocardiogram [ECG] [EKG] Plan Plan: 1. The patient is admitted to the hospital with unstable angina and dynamic EKG changes. Troponin is negative. patient will be take to the lab support service tech now for [facility] to evalaute known CAD. 2. The patient has been educated on the risks and benefits of proceeding with LHC with R radial access. The patient verbalizes understanding and is agreeable in proceeding with the procedure. 3. NPO in preparation for LHC 4. Echo to evaluate LV function due to USA and SOA. 5. Recommend Aspirin 81 mg daily due to USA and known CAD 6. PAfib is a-pacing at this time. continue amio and metoprolol for afib suppression 7. Continue Eliquis post LHC for screen room operator anticoagulation due to PAfib. 8. Renal function is normal 9. Known HFpE with normal EF in 2022. will obtain echo today. continue lasix and aldactone. 10. BP is well controlled. continue Toprol. 11. LDL goal is < 55. on statin. will get lipid panel in the morning. 12. Further recommendations will be made pending the patient's response to treatment and results of LHC today. Thank you for the opportunity to help participate in the care of this patient.
[2023-11-27 14:25] LABS: NT Pro Brain Natriuretic Pep. 1770 pg/mL (0-125)
[2023-11-27] MEDS: CLOPIDOGREL 300MG TABLET 600 MG PO (14:41)
[2023-11-27] MEDS: IOPAMIDOL-370 (76%);100ML BOTTLE 90 ML IV (15:08)
[2023-11-27 15:12] LABS: CATHL Activated Clotting Time > 400 SEC (74-125)
[2023-11-27 16:58] LABS: Lactic Acid 0.8 mmol/L (0.7-2.1)
[2023-11-27 17:08] LABS: NT Pro Brain Natriuretic Pep. 1610 pg/mL (0-125)
[2023-11-27 17:16] LABS: POC Glucose,Bedside 152 (70-110)
[2023-11-27] MEDS: FUROSEMIDE 40 MG TABLET PO (17:38)
[2023-11-27 18:13] LABS: HIV (1&2) Antibody Rapid NONREACTIVE (NONREACTIVE)
--- NOTE | 2023-11-27 18:55 | PC.NURSE ---
pt is alert and oriented x4 and very UNGA. vss. right radial site with radial band still in place. pt using the bsc and has been continent of bowel and bladder. bruising to bilat hip/buttocks area and complaints of lt should pain. pt has an outfit, glasses, shoes, wallet and tablet at bedside
[2023-11-27] MEDS: ATORVASTATIN 40MG TABLET 40 MG PO (20:25)
[2023-11-27] MEDS: METOPROLOL TARTRATE 50MG TABLET 200 MG PO (20:25)
[2023-11-27] MEDS: humaLOG 100 UNITS/ML 10ML VIAL (SSI) SQ (20:25)
[2023-11-27] MEDS: APIXABAN 5MG TABLET 5 MG PO (20:25)
[2023-11-27 20:27] LABS: POC Glucose,Bedside 381 (70-110)
[2023-11-27] MEDS: ACETAMINOPHEN 325MG TAB 650 MG PO (20:33)
[2023-11-28] VITALS: BP 127/67; PULSE 71; PULSE 73; RESP 17; TEMP 36.8; O2SAT 96
[2023-11-28 04:00] VITALS: BP 114/59; PULSE 70; PULSE 71; RESP 16; TEMP 36.8; O2SAT 96; BMI 33.8
--- NOTE | 2023-11-28 05:37 | PC.NURSE ---
Patient has remained alert and oriented x4 this shift. Tolerating room air well. No complaints of chest pain or shortness of breath this shift. Right radial site dressed with gauze pad and tegaderm, C/D/I at this time. Patient has ambulated to/from restroom twice this shift with x1-2 assist. Additional bruising noted to patients chest, when I asked what happened, she is not sure. VSS. Bed alarm on for patient safety. Call light within reach.
[2023-11-28 06:21] LABS: POC Glucose,Bedside 232 (70-110)
[2023-11-28] MEDS: humaLOG 100 UNITS/ML 10ML VIAL (SSI) SQ ×4 (06:28→20:43)
[2023-11-28 06:38] LABS: Basophils # 0.1 K/mm3 (0-0.2); Eosinophils % 0.1 % (0.1-12.0); Hematocrit 23.3 % (37.0-47.0); Lymphocytes # 1.2 K/mm3 (0.7-4.5); Mean Corpuscular HGB Conc 30.3 g/dL (31.8-35.4); Mean Corpuscular Hemoglobin 20.2 pg (27.0-31.2); Mean Corpuscular Volume 66.6 fl (81-99); Mean Platelet Volume 7.6 fl (7.4-10.4); Monocytes # 0.5 K/mm3 (0.1-1.0); Monocytes % 8.7 % (1.7-9.3); Neutrophils # 4.4 K/mm3 (1.8-7.8); Neutrophils % 71.3 % (37.0-80.0); Platelet Count 262 K/mm3 (142-424); Red Cell Distribution Width 18.5 % (11.5-17.5); White Blood Count 6.2 K/mm3 (4.8-10.8)
[2023-11-28 06:56] LABS: Chloride 105 mmol/L (98-107); Potassium 3.3 mmoL/L (3.5-5.1); Sodium 139 mmol/L (136-145)
[2023-11-28 06:59] LABS: Anion Gap 10.3 mEq/L (5-15); Blood Urea Nitrogen 17 mg/dl (7-17); Calcium 8.5 mg/dl (8.4-10.2); Carbon Dioxide 27 mmol/L (22.0-30.0); Creatinine Clearance Estimated 76 mL/min (50-200); Estimated Glomerular Filt Rate 56 ml/min (>60); GFR (African American) 68 ML/MIN (>60); Glucose 216 mg/dl (74-100); Magnesium 1.6 mg/dl (1.6-2.3)
--- NOTE | 2023-11-28 07:00 | CA_ITS ---
APPROVED REPORT EXAM: Comprehensive 2D, Doppler, and color-flow Echocardiogram Associate Product Manager: Shanta Gonzalez RCS, RVS Ht: 5 ft 2 in Wt: 220lbs BSA: 1.99 BP: 134/79 mmHg Indications: CP, PACER, NSTEMI, AFIB, CHF, Ex-smoker, SOB Echo Enhancing Agent Comments: TDS: Extreme CHER-AE HEIGHTS=no patient participation 2D Dimensions Left Atrium 4.33 cm LA Volume 126.40 mL LA Volume Index [id number] mL/m2 (M/F) 16-34 EF AP4 45.30 % GL Strain -13.9 % M-Mode Dimensions RVDd 1.08 cm (0.9-2.6) LA Diam 5.05 cm (1.9-4.0) LVDd 5.21 cm (3.5-5.7) LVDs 3.75 cm (3.5-5.7) IVSd 1.12 cm (0.6-1.1) PWd 1.08 cm (0.6-1.1) EF (Teich) 53.90% EPSs 0.77 cm FS 28.00% EDV (Teich) 130.10 mL TAPSE 2.56 (<1.7) ESV (Teich) 60.00 mL LV Diastology E Decel Time 163 (160-240 msec) E/A Ratio 3.58 MED A' 4.40 cm/s LAT A' 5.00 cm/s Aortic Valve PINA Index 0.87 cm2/m2 AoV Peak Pradip. 164.0 (50-130 cm/s) AI PHT 607.00 ms AO Peak GR. 10.80 mmHg AO Mean GR. 5.70 (<5 mmHg) AO VTI 35.4 (18-25 cm) PINA (VTI) 1.78 (2.5-4.5 cm2) Mitral Valve MV A Velocity 38.0 (40-130 cm/s) E/A Ratio 3.58 MV Mean Gr. 3.30 (<2mmHg) Pulmonary Valve SC End VMAX 200.0 cm/s Tricuspid Valve TR P. Velocity 302.00 cm/s RAP Estimate 10.00 mmHg RVSP 46.50 mmHg Left Ventricle The left ventricle is normal size. The left ventricular systolic function is normal. The left ventricular ejection fraction is within the normal range. There is increased LV wall thickness. There is normal LV segmental wall motion. Diastolic function is indeterminate. LVEF is 55%. Right Ventricle The right ventricle is normal size. The right ventricular systolic function is normal. Atria Left atrium is severely dilated. Right atrium is mildly dilated. There is no Doppler evidence of interatrial shunt. Aortic Valve The aortic valve is mildly thickened. Moderate aortic regurgitation. There is no aortic valvular stenosis. Mitral Valve The mitral valve leaflets are mildly thickened. No evidence of mitral valve stenosis. Mild mitral regurgitation. Tricuspid Valve The tricuspid valve leaflets are thin and pliable. Mild tricuspid regurgitation. RVSP is 30-35 mmHg. Pulmonic Valve The pulmonary valve is normal in structure. Mild pulmonic regurgitation. Great Vessels The aortic root is normal in size. The ascending aorta is not well-visualized. IVC is normal in size and collapses >50% with inspiration. Pericardium There is no pericardial effusion. Other Information Study Quality: Fair Conclusion Normal biventricular systolic function. Biatrial dilation. Moderate AI. Mild MR, mild TR, mild PI. Electronically signed by : Federica Schultz MD 11/29/2023 23:42:29
[2023-11-28 07:03] LABS: Hemoglobin 7.1 g/dL (12.2-16.2)
[2023-11-28 07:30] LABS: Thyroid Stimulating Hormone 1.41 uIU/mL (0.465-4.68)
[2023-11-28 07:36] LABS: Albumin Level 3.1 g/dl (3.5-5.0)
[2023-11-28 07:38] LABS: Bilirubin,Unconjugated 0.1 mg/dL (0.0-1.1)
[2023-11-28 07:39] LABS: Alanine Aminotransferase 30 U/L (12-78); Alkaline Phosphatase 189 U/L (38-126); Aspartate Amino Transferase 24 U/L (14-36); Bilirubin,Direct 0.2 mg/dl (0.0-0.4); Bilirubin,Indirect 0.1 mg/dL (0.0-0.9); Bilirubin,Total 0.3 mg/dl (0.2-1.3); Chol/HDL Ratio 2.6 (1-3.5); Cholesterol 143 mg/dl (140-200); HDL Cholesterol 55 mg/dl (40-60); Triglycerides 54 mg/dl (30-150); VLDL Cholesterol 11 mg/dL (0-40)
[2023-11-28 07:50] LABS: Direct LDL Cholesterol 57.99 mg/dL (100-129)
[2023-11-28 08:00] VITALS: BP 115/67; PULSE 70; PULSE 71; RESP 16; TEMP 36.8; O2SAT 98
--- NOTE | 2023-11-28 09:20 | HMH.OTEV ---
OT Inpatient Evaluation Rehab OT IP Evaluation Start: 11/28/23 07:47 Freq: ONCE Status: Active Protocol: Document 11/28/23 09:14 NOEMIANDREY (Rec: 11/28/23 09:20 INEZ [id number]) Rehab OT IP Assessment Subjective History Jaci Steiner is a 63 year old female who presented to the ED with chest pain. She has a PMH of CAD, HTN, HLD, PAfib on Eliquis, s/p Pacemaker placement and HFpEF. this pt present with chest pain that started while she was sitting and eating lunch. this persisted for an hour prior to coming to the ED. The patient states this is a left sided CP that radiated to the BUEs and jaw that caused numbness. SOB was associated with the CP. this is a severe pain. CP did not improve with medication in the ED. Pt had dynamic EKG changes and will be taken directly to the general labor. Denies palpitations, fever, chills, N/V/D, PND or orthopnea. She has chronic BLE edema due to chronic lymphedema. PMH: Abnormal EKG Lymphedema (HFpEF) heart failure with preserved ejection fraction Paroxysmal atrial fibrillation Profound hearing loss of left ear Right SNHL Hearing loss, bilateral Otalgia Uterine leiomyoma Coronary artery disease History of left heart catheterization Arthritis Migraine History of gastroesophageal reflux (GERD) Gallbladder disease Congestive heart failure History of pacemaker Arrhythmia Left femoral shaft fracture Arthritis of left knee Arthritis of knee, right Allergic reaction Diabetes Reflux esophagitis Atypical chest pain Cervical disc disease Angina pectoris Dyspnea Contusion of right lower leg Adnexal cyst Lumbar facet arthropathy Lumbar spondylosis Sacroiliitis Hiatal hernia Cholelithiasis Infection due to ESBL- producing Escherichia coli UTI (urinary tract infection) Hypotension Hypokalemia Hyperglycemia Acute bronchitis Chest pain HHD (hypertensive heart disease) HLD (hyperlipidemia) HTN (hypertension) Tachycardia Atrial fibrillation Edema of lower extremity Atrial flutter Coronary arteriosclerosis Patient is a resident at [facility]. Requires minimal assistance for ADLs and fx'l mobility. Uses a RW and w/c to maneuver around. Subjective I can't get up. Instructed Patient on proper hand and foot placement to complete bed mobility from supine->sit @ EOB with Min A. Patient demonstrated good dynamic sitting balance at EOB . Patient required max verbal and tactile cueing for proper hand and foot placement to complete sit->stand transfers. Patient is unable to follow protcol of being NwB to R UE as of now. Patient applys full weight bearing to RUE for sit ->stand. Patient stood <30 secs. Patient required Max A from EOB->supine with needing Max A x2 to be reposition. Objective Patient Orientation Person,Name,Age,Birthday,Year Right Upper Extremity Gross ROM WFL Left Upper Extremity Gross ROM WFL Bed Mobility bed mobility - supine/sit Assist Level Maximum x 1 (75% assist) Transfer Training Sit/Stand Transfer Assist Level Maximum x 2 (75% assist) Chair Transfer Ability Maximum x 2 (75% assist) Chair Transfer Assistive Devices Rolling Walker Rehab OT IP prob,goals,plan Problems Date of Evaluation: 11/28/23 OT IP Problems Bed Mobility,Transfers,Balance ,Self care,Safety Rehab Potential Rehab Potential Good Equipment Needs Assistive Devices Rolling / Wheeled Walker Plan OT intervention Plan Bed Mobility,Transfers,Balance ,Self care,Safety,Therapeutic Exercise OT Plan Frequency Daily Duration LOS Discharge Goals Bed Mobility Ability Assistance x1 Sit to Stand Chair Transfer Ability Moderate x 2 (50% assist) Discharge Plan OT Discharge Plan Patient required increase amount of assistance for ADLs and fx'l mobility at this time . Patient is unable to return back to [facility] for GIL . Patient will need rehabilitation with 03/09 care nursing and rehabilitation at this time. Eval Complexity Eval Charge Codes 32308 - Low Complexity PHYSICIAN CERTIFICATION: I certify the specified therapy services for Jaci Steiner are required, authorized, and reviewed every 30 days.
[2023-11-28] MEDS: METOPROLOL TARTRATE 50MG TABLET 200 MG PO ×2 (09:21→20:44)
[2023-11-28] MEDS: METFORMIN 500MG TABLET 500 MG PO ×2 (09:22→16:19)
[2023-11-28] MEDS: APIXABAN 5MG TABLET 5 MG PO ×2 (09:22→20:43)
[2023-11-28] MEDS: AMIODARONE 200MG TABLET 200 MG PO (09:22)
[2023-11-28] MEDS: POTASSIUM CHLORIDE 20MEQ TAB 40 MEQ PO ×2 (09:22→12:32)
[2023-11-28] MEDS: SPIRONOLACTONE 25MG TABLET 25 MG PO (09:23)
[2023-11-28] MEDS: DULOXETINE 30MG CAPSULE.DR 60 MG PO (09:23)
[2023-11-28] MEDS: ASPIRIN EC 81MG TABLET 81 MG PO (09:23)
[2023-11-28] MEDS: OXcarbazepine 300MG TABLET 300 MG PO ×2 (09:23→20:44)
[2023-11-28] MEDS: MAGNESIUM SULFATE IN WATER 2 GM/50 ML PIGGYBACK IV ×2 (09:23→10:24)
[2023-11-28] MEDS: FUROSEMIDE 40 MG TABLET PO ×2 (09:23→16:19)
[2023-11-28] MEDS: FAMOTIDINE 20MG TABLET 20 MG PO ×2 (09:23→20:43)
[2023-11-28] MEDS: CLOPIDOGREL 75MG TAB 75 MG PO (09:33)
--- NOTE | 2023-11-28 09:54 | HMH.PTEV ---
Physical Therapy Evaluation Rehab PT IP Evaluation Start: 11/28/23 07:47 Freq: ONCE Status: Active Protocol: Document 11/28/23 09:27 PANTERA (Rec: 11/28/23 09:54 PANTERA [id number]) Subjective/History History History 63 year old female who presented to the ED with chest pain. She has a PMH of CAD, HTN, HLD, PAfib on Eliquis, s/ p Pacemaker placement and HFpEF. Pt is a resident of a local personal senior care and is generally independent with mobility using a W/C. She is very hard of hearing currently and is having difficulty following commands due to this . Subjective Subjective Pt c/o L shoulder pain this am , pt states that it has been present for some time prior to adm. She agrees to mobility assessment at this time. New diagnosis of cancer in past 12 No months? Rehab PT IP Eval Objective Appearance Patient Behavior Appropriate Patient Orientation Person,Place Difficulty following instructions mild Speech Pattern Clear Ambulation Patient Able to Ambulate No Balance Ability to Arise Able, uses arms to help Sitting Balance Steady, safe Standing Balance Unsteady Dynamic Sitting Balance Ability Good Dynamic Standing Balance Ability Poor Transfers Bed Transfer Ability Minimal x 1 (25% assist) Sit to Stand Bed Transfer Ability Moderate x 2 (50% assist) Rehab PT IP prob,goals,plan Problems Date of Evaluation: 11/28/23 PT IP Problems Bed Mobility,Transfers,Gait, Balance,Self care,Safety Rehab Potential Rehab Potential Good Plan PT Intervention Plan Bed Mobility,Transfers,Gait, Balance,Self care,Safety, Therapeutic Exercise PT Plan Frequency Daily Duration LOS Discharge Goals Bed Transfer Ability Contact Guard/Hand Hold Sit to Stand Chair Transfer Ability Minimal x 2 (25% assist) Discharge Plan PT Discharge Plan Pt is currently most appropriate for subacute rehab placement once medically stable for d/c. Skilled therapy is indicated for increasing bed mobility, transfers, strength, to return pt to PLOF. Eval Complexity Eval Charge Codes 73033 - High Complexity PHYSICIAN CERTIFICATION: I certify the specified therapy services for Jaci Steiner are required, authorized, and reviewed every 30 days.
--- NOTE | 2023-11-28 10:09 | SW/DCPLANNER ---
Addendum entered by Erica Navarro RN 11/28/23 15:16: I spoke with Kimbrely today, who stated that she can accept the patient once medically stable and 3 MN stay is achieved. Per Kaur Cuenca @ [facility], patient's room will be held while at SNF. Plan will be to discharge on Saturday to [facility]. Original Note: I spoke w/ this patient regarding plans once medically stable for discharge. PT/OT evaluated patient and recommended SNF level of care. Patient is agreeable to placement stating she has been to [facility] in the past but is also open to [facility]. Patient information has been faxed to facilities at this time. I will continue to follow up w/ MD, facilities and patient. Discharge date is unknown at this time.
[2023-11-28 10:35] LABS: POC Glucose,Bedside 315 (70-110)
[2023-11-28 12:00] VITALS: BP 114/65; PULSE 70; PULSE 74; RESP 15; TEMP 37; O2SAT 98
[2023-11-28 12:42] VITALS: BMI 33.8
--- NOTE | 2023-11-28 13:15 | HMH.PHAINT1 ---
Pharmacy Intervention Comments: Home medications verified using MAR from [facility].
[2023-11-28 16:00] VITALS: BP 127/72; PULSE 70; PULSE 80; RESP 14; TEMP 37.1; O2SAT 96
[2023-11-28 16:15] LABS: POC Glucose,Bedside 183 (70-110)
--- NOTE | 2023-11-28 16:45 | PC.NURSE ---
Pt. is aox4, very hard of hearing, assist times one - two bsc, fsbg achs, right radial dressing c/d/i, purewick in place, 90's on RA, PT recommends snf and patient is agreeable.
[2023-11-28 18:14] LABS: Hematocrit 25.3 % (37.0-47.0); Hemoglobin 7.5 g/dL (12.2-16.2)
--- NOTE | 2023-11-28 19:09 | EXP.PN ---
Subjective *Date: 11/28/23 *Time: 18:20 Interval history: Today, patient continues to be comfortable without chest pain. Very pleasant, though hard id hearing. Exam Data for Last 24 hours Vital signs and Labs for Last 24 Hours: Temp Pulse Resp BP Pulse Ox O2 Del Method 98.7 F 70 14 127/72 96 Room Air 11/28/23 16:00 11/28/23 16:00 11/28/23 16:00 11/28/23 16:00 11/28/23 16:00 11/28/23 17:26 Laboratory Results - last 24 hr 11/27/23 20:18: POC Glucose 381 H* 11/28/23 05:41: WBC 6.2, RBC 3.50 L, Hgb 7.1 L D, Hct 23.3 L, MCV 66.6 L, MCH 20.2 L, MCHC 30.3 L, RDW 18.5 H, Plt Count 262, MPV 7.6, Neut % (Auto) 71.3, Lymph % (Auto) 19.0, [place] % (Auto) 8.7, Eos % (Auto) 0.1, Baso % (Auto) 1.0, Neut # (Auto) 4.4, Lymph # (Auto) 1.2, [place] # (Auto) 0.5, Eos # (Auto) 0.0, Baso # (Auto) 0.1, Sodium 139, Potassium 3.3 L, Chloride 105, Carbon Dioxide 27, Anion Gap 10.3, BUN 17 D, Creatinine 1.00, Estimated Creat Clear 76, Estimated GFR 56 L, Est GFR ( Amer) 68, Glucose 216 H D, Hemoglobin A1c 7.0 H, Calcium 8.5, Magnesium 1.6, Total Bilirubin 0.3, Direct Bilirubin 0.2, Conjugated Bilirubin 0.0, Indirect Bilirubin 0.1, Unconjugated Bilirubin 0.1, AST 24 D, ALT 30, Alkaline Phosphatase 189 H, Total Protein 6.0 L, Albumin 3.1 L D, Triglycerides 54, Cholesterol 143, LDL Cholesterol Direct 57.99 L, VLDL Cholesterol 11, HDL Cholesterol 55, Cholesterol/HDL Ratio 2.6, TSH 1.41 11/28/23 06:14: POC Glucose 232 H 11/28/23 10:29: POC Glucose 315 H* 10/17/24 16:09: POC Glucose 183 H 10/17/24 18:06: Hgb 7.5 L, Hct 25.3 L I & O for Last 24 hours: Intake & Output 11/25/23 11/26/23 11/27/23 11/28/23 23:59 23:59 23:59 23:59 Intake Total 240 / 240 840 / 840 Output Total 250 / 250 0 / 0 Balance -10 / -10 840 / 840 Weight 98.883 kg 83.46 kg Constitutional Constitutional: no acute distress *Routine HEENT Exam Head: Present normocephalic Eye: Present EOMI and PERRL ENT: Present mucous membranes moist *Routine Neck Exam Neck: Present supple; Absent lymphadenopathy *Routine Respiratory Exam Respiratory: Present CTA bilaterally *Routine Cardiovascular Exam Cardiovascular: Present RRR *Routine Abdominal Exam Abdominal: Present soft and normoactive bowel sounds; Absent tenderness *Routine Extremities Exam Extremities: Absent cyanosis, clubbing or edema *Routine Skin Exam Skin: Present warm; Absent rash *Routine Neurological Exam Neurological: Present alert and oriented X3 Assessment and Plan *Assessment and plan (1) Abnormal EKG: Status: Inactive Category: Medical Code(s): R94.31 - Abnormal electrocardiogram [ECG] [EKG] (2) (HFpEF) heart failure with preserved ejection fraction: Status: Acute Qualifiers: Heart failure chronicity: chronic Qualified Code(s): I50.32 - Chronic diastolic (congestive) heart failure Category: Medical Code(s): I50.30 - Unspecified diastolic (congestive) heart failure (3) Unstable angina: Status: Resolved Category: Medical Code(s): I20.0 - Unstable angina (4) Paroxysmal atrial fibrillation: Status: Acute Category: Medical Code(s): I48.0 - Paroxysmal atrial fibrillation Plan Jaci Steiner is a 63 year old female who presented to the ED with chest pain. She has a PMH of CAD, HTN, HLD, PAfib on Eliquis, s/p Pacemaker placement, HFpEF, diabetes. this pt present with chest pain that started while she was sitting and eating lunch. this persisted for an hour prior to coming to the ED. The patient states this is a left sided CP that radiated to the BUEs and jaw that caused numbness. SOB was associated with the CP. this is a severe pain. CP did not improve with medication in the ED. Pt had dynamic EKG changes and will be taken directly to the grinding and polishing laborer. Denies palpitations, fever, chills, N/V/D, PND or orthopnea. She has chronic BLE edema due to chronic lymphedema. #CAD #Unstable angina - S/p PCI with 1 stent in mid LAD today 11/27/23. ? Today, patient continues to be comfortable without chest pain. Very pleasant, though hard id hearing. - Aspirin 81mg, Plavix 75mg, atorvastatin 40mg. - Follow-up ECHO. - Follow-up A1c, lipid panel, TSH for risk stratification. #Physical deconditioning ? PT/OT recommended SNF placement. Case management following, assisting with placement. #Afib - Stable, rate controlled, pacing. - Resumed home amio, metoprolol, Eliquis. #HFpEF - Euvolemic at this time. - Resumed home Lasix 40 BID. #Diabetes - Follow-up morning A1c. - Resumed home metformin. - LDSSI, ACHS glucose checks. FULL CODE
[2023-11-28 20:00] VITALS: BP 111/63; PULSE 70; PULSE 75; RESP 18; TEMP 36.9; O2SAT 96
[2023-11-28 20:31] LABS: POC Glucose,Bedside 162 (70-110)
[2023-11-28] MEDS: ATORVASTATIN 40MG TABLET 40 MG PO (20:43)
[2023-11-29] VITALS: BP 128/77; PULSE 70; RESP 18; TEMP 37.1; O2SAT 97
[2023-11-29 04:00] VITALS: BP 120/67; PULSE 70; RESP 16; TEMP 36.5; O2SAT 95; BMI 35.2
--- NOTE | 2023-11-29 05:31 | PC.NURSE ---
Pt is A&OX4 and has tolerated room air. Lung sounds clear and bowel sounds active in all quadrants. Has ambulated to [facility] with x1 assist. Dressing over right radial cath site is C/D/I. She has denied any pain. Currently asleep with call light within reach.
[2023-11-29 05:56] LABS: POC Glucose,Bedside 129 (70-110)
[2023-11-29] MEDS: LEVOTHYROXINE 25MCG (0.025MG) TAB 25 MCG PO (06:30)
[2023-11-29] MEDS: METFORMIN 500MG TABLET 500 MG PO ×2 (06:30→15:58)
[2023-11-29 06:32] LABS: Basophils # 0.1 K/mm3 (0-0.2); Eosinophils # 0.1 K/mm3 (0.0-0.4); Eosinophils % 2.2 % (0.1-12.0); Hematocrit 23.8 % (37.0-47.0); Hemoglobin 7.1 g/dL (12.2-16.2); Lymphocytes # 1.7 K/mm3 (0.7-4.5); Lymphocytes % 25.6 % (10-50); Mean Corpuscular HGB Conc 29.9 g/dL (31.8-35.4); Mean Corpuscular Volume 66.9 fl (81-99); Mean Platelet Volume 7.5 fl (7.4-10.4); Monocytes # 0.6 K/mm3 (0.1-1.0); Neutrophils # 4.1 K/mm3 (1.8-7.8); Neutrophils % 62.2 % (37.0-80.0); Platelet Count 241 K/mm3 (142-424); Red Blood Count 3.55 M/mm3 (4.20-5.40); Red Cell Distribution Width 18.4 % (11.5-17.5); White Blood Count 6.6 K/mm3 (4.8-10.8)
[2023-11-29 06:33] LABS: Chloride 108 mmol/L (98-107); Potassium 4.4 mmoL/L (3.5-5.1); Sodium 141 mmol/L (136-145)
[2023-11-29 06:36] LABS: Anion Gap 9.4 mEq/L (5-15); Blood Urea Nitrogen 15 mg/dl (7-17); Carbon Dioxide 28 mmol/L (22.0-30.0); Creatinine Clearance Estimated 79 mL/min (50-200); Estimated Glomerular Filt Rate 63 ml/min (>60); GFR (African American) 77 ML/MIN (>60)
[2023-11-29 06:37] LABS: Calcium 8.6 mg/dl (8.4-10.2); Glucose 111 mg/dl (74-100)
[2023-11-29 08:00] VITALS: BP 126/64; PULSE 70; PULSE 95; RESP 17; TEMP 36.6; O2SAT 99
[2023-11-29 08:13] LABS: Iron 28 ug/dL (37-170)
[2023-11-29 08:23] LABS: Total Iron Binding Capacity 357 ug/dL (265-497)
[2023-11-29] MEDS: FAMOTIDINE 20MG TABLET 20 MG PO ×2 (08:33→20:51)
[2023-11-29] MEDS: DULOXETINE 30MG CAPSULE.DR 60 MG PO (08:33)
[2023-11-29] MEDS: AMIODARONE 200MG TABLET 200 MG PO (08:34)
[2023-11-29] MEDS: METOPROLOL TARTRATE 50MG TABLET 200 MG PO ×2 (08:34→20:51)
[2023-11-29] MEDS: APIXABAN 5MG TABLET 5 MG PO ×2 (08:34→20:50)
[2023-11-29] MEDS: ASPIRIN EC 81MG TABLET 81 MG PO (08:34)
[2023-11-29] MEDS: CLOPIDOGREL 75MG TAB 75 MG PO (08:34)
[2023-11-29] MEDS: SPIRONOLACTONE 25MG TABLET 25 MG PO (08:34)
[2023-11-29] MEDS: FUROSEMIDE 40 MG TABLET PO ×2 (08:34→15:58)
[2023-11-29] MEDS: OXcarbazepine 300MG TABLET 300 MG PO ×2 (08:34→20:51)
[2023-11-29 08:48] LABS: Ferritin 7.08 ng/ml (11.1-264)
[2023-11-29 09:32] LABS: HCV Ab Non Reactive (Non Reactive)
[2023-11-29 09:53] LABS: POC Glucose,Bedside 163 (70-110)
[2023-11-29] MEDS: humaLOG 100 UNITS/ML 10ML VIAL (SSI) SQ ×3 (10:07→20:51)
[2023-11-29 12:00] VITALS: BP 124/62; PULSE 70; PULSE 72; RESP 16; TEMP 36.6; O2SAT 94
--- NOTE | 2023-11-29 14:56 | PC.NURSE ---
Pt. is aox4, very hard of hearing, assist times one - two bsc, fsbg achs, right radial dressing c/d/i, 90's on RA, PT and OT seeing patient. d/c tomorrow to [place], bed will be held [facility] after rehab.
[2023-11-29 16:00] VITALS: BP 112/65; PULSE 69; PULSE 70; RESP 17; TEMP 36.6; O2SAT 100
[2023-11-29 16:12] LABS: POC Glucose,Bedside 180 (70-110)
--- NOTE | 2023-11-29 19:16 | P.PN_ITS ---
Subjective *Date: 12/05/23 *Time: 18:17 Exam Data for Last 24 hours Vital signs and Labs for Last 24 Hours: Temp Pulse Resp BP Pulse Ox O2 Del Method 98 F 69 17 112/65 100 Room Air 11/29/23 16:00 11/29/23 16:00 11/29/23 16:00 11/29/23 16:00 11/29/23 16:00 11/29/23 17:17 Laboratory Results - last 24 hr 11/27/23 16:33: Hepatitis C Antibody Non reactive 11/28/23 20:23: POC Glucose 162 H 11/29/23 05:45: WBC 6.6, RBC 3.55 L, Hgb 7.1 L, Hct 23.8 L, MCV 66.9 L, MCH 20.0 L, MCHC 29.9 L, RDW 18.4 H, Plt Count 241, MPV 7.5, Neut % (Auto) 62.2, Lymph % (Auto) 25.6, [place] % (Auto) 9.0, Eos % (Auto) 2.2, Baso % (Auto) 1.0, Neut # (Auto) 4.1, Lymph # (Auto) 1.7, [place] # (Auto) 0.6, Eos # (Auto) 0.1, Baso # (Auto) 0.1, Sodium 141, Potassium 4.4 D, Chloride 108 H, Carbon Dioxide 28, Anion Gap 9.4, BUN 15, Creatinine 0.90, Estimated Creat Clear 79, Estimated GFR 63, Est GFR ( Amer) 77, Glucose 111 H, Calcium 8.6, Magnesium 2.0 D, Iron 28 L, TIBC 357, Iron Saturation 7.36980 L, Ferritin 7.08 L 11/29/23 05:49: POC Glucose 129 H 11/29/23 09:46: POC Glucose 163 H 11/29/23 16:04: POC Glucose 180 H I & O for Last 24 hours: Intake & Output 11/26/23 11/27/23 11/28/23 11/29/23 23:59 23:59 23:59 23:59 Intake Total 240 / 240 840 / 1140 1500 / 1500 Output Total 250 / 250 0 / 250 250 / 250 Balance - 840 / 890 1250 / 1250 Weight 98.883 kg 83.46 kg 86.908 kg Constitutional Constitutional: no acute distress Comments: Hard of hearing. *Routine HEENT Exam Head: Present normocephalic Eye: Present EOMI and PERRL ENT: Present mucous membranes moist *Routine Neck Exam Neck: Present supple; Absent lymphadenopathy *Routine Respiratory Exam Respiratory: Present CTA bilaterally *Routine Cardiovascular Exam Cardiovascular: Present RRR *Routine Abdominal Exam Abdominal: Present soft and normoactive bowel sounds; Absent tenderness *Routine Extremities Exam Extremities: Absent cyanosis, clubbing or edema *Routine Skin Exam Skin: Present warm; Absent rash *Routine Neurological Exam Neurological: Present alert and oriented X3 Assessment and Plan *Assessment and plan (1) Abnormal EKG: Status: Inactive Category: Medical Code(s): R94.31 - Abnormal electrocardiogram [ECG] [EKG] (2) (HFpEF) heart failure with preserved ejection fraction: Status: Acute Qualifiers: Heart failure chronicity: chronic Qualified Code(s): I50.32 - Chronic diastolic (congestive) heart failure Category: Medical Code(s): I50.30 - Unspecified diastolic (congestive) heart failure (3) Unstable angina: Status: Resolved Category: Medical Code(s): I20.0 - Unstable angina (4) Paroxysmal atrial fibrillation: Status: Acute Category: Medical Code(s): I48.0 - Paroxysmal atrial fibrillation Plan Jaci Steiner is a 63 year old female who presented to the ED with chest pain. She has a PMH of CAD, HTN, HLD, PAfib on Eliquis, s/p Pacemaker placement, HFpEF, diabetes. this pt present with chest pain that started while she was sitting and eating lunch. this persisted for an hour prior to coming to the ED. The patient states this is a left sided CP that radiated to the BUEs and jaw that caused numbness. SOB was associated with the CP. this is a severe pain. CP did not improve with medication in the ED. Pt had dynamic EKG changes and will be taken directly to the director of labor relations. Denies palpitations, fever, chills, N/V/D, PND or orthopnea. She has chronic BLE edema due to chronic lymphedema. #CAD #Unstable angina - S/p PCI with 1 stent in mid LAD 11/27/23. ? Patient is pleasant, comfortable, chest pain-free. - Started aspirin 81mg, Plavix 75mg, atorvastatin 40mg. - ECHO shows normal biventricular systolic function. ? Restratification A1c 7.0, TSH normal, LDL normal. - Pending placement, see below. #Physical deconditioning ? PT/OT recommended SNF placement. Case management assisting with placement. #Iron deficiency anemia ? Hemoglobin stable at 7.3. No signs of bleeding. ? Iron studies suggestive of iron deficiency. Ferritin 7.08, MCV 66.4. - Started ferrous sulfate 325 mg twice daily. ? Will need to follow-up with PCP for further evaluation. Will need to be evaluated for colonoscopy #Afib - Stable, rate controlled, pacing. - Resumed home amiodarone, metoprolol, Eliquis. #HFpEF - Euvolemic at this time. - Resumed home Lasix 40 BID. #Diabetes - A1c 7.0, at goal for patient's age - Resumed home metformin.
[2023-11-29 20:00] VITALS: BP 115/70; PULSE 70; RESP 18; TEMP 36.8; O2SAT 97
[2023-11-29 20:09] LABS: POC Glucose,Bedside 205 (70-110)
[2023-11-29] MEDS: ATORVASTATIN 40MG TABLET 40 MG PO (20:50)
[2023-11-29] MEDS: diphenhydrAMINE 25MG CAPSULE 25 MG PO (20:52)
[2023-11-30] VITALS: BP 147/73; PULSE 70; RESP 18; TEMP 36.7; O2SAT 100
[2023-11-30 02:54] VITALS: BMI 34.7
[2023-11-30] MEDS: ACETAMINOPHEN 325MG TAB 650 MG PO ×2 (03:37→08:12)
[2023-11-30 04:00] VITALS: BP 164/77; PULSE 70; RESP 16; TEMP 39; O2SAT 96
[2023-11-30 05:45] LABS: POC Glucose,Bedside 222 (70-110)
[2023-11-30] MEDS: LEVOTHYROXINE 25MCG (0.025MG) TAB 25 MCG PO (06:09)
[2023-11-30] MEDS: humaLOG 100 UNITS/ML 10ML VIAL (SSI) SQ ×2 (06:10→11:09)
--- NOTE | 2023-11-30 06:28 | PC.NURSE ---
Pt had a temperature of 102.2. Acetaminophen was given and temperature in room was decreased. On recheck temperature was 98.8
[2023-11-30] MEDS: METFORMIN 500MG TABLET 500 MG PO (06:37)
[2023-11-30 06:52] LABS: Basophils # 0.1 K/mm3 (0-0.2); Basophils % 0.7 % (0.1-2.0); Eosinophils # 0.1 K/mm3 (0.0-0.4); Hematocrit 24.5 % (37.0-47.0); Hemoglobin 7.3 g/dL (12.2-16.2); Lymphocytes # 0.4 K/mm3 (0.7-4.5); Mean Corpuscular HGB Conc 29.6 g/dL (31.8-35.4); Mean Corpuscular Hemoglobin 19.7 pg (27.0-31.2); Mean Corpuscular Volume 66.4 fl (81-99); Mean Platelet Volume 7.2 fl (7.4-10.4); Monocytes # 0.5 K/mm3 (0.1-1.0); Monocytes % 6.3 % (1.7-9.3); Neutrophils # 7.5 K/mm3 (1.8-7.8); Neutrophils % 87.1 % (37.0-80.0); Platelet Count 229 K/mm3 (142-424); Red Blood Count 3.69 M/mm3 (4.20-5.40); Red Cell Distribution Width 18.1 % (11.5-17.5); White Blood Count 8.6 K/mm3 (4.8-10.8)
[2023-11-30 06:55] LABS: MANUAL DIFFERENTIAL MANUAL DIFFERENTIAL (MANUAL DIFF)
[2023-11-30 06:56] LABS: Chloride 102 mmol/L (98-107); Potassium 4.6 mmoL/L (3.5-5.1); Sodium 136 mmol/L (136-145)
[2023-11-30 06:59] LABS: Anion Gap 11.6 mEq/L (5-15); Blood Urea Nitrogen 16 mg/dl (7-17); Calcium 8.8 mg/dl (8.4-10.2); Carbon Dioxide 27 mmol/L (22.0-30.0); Creatinine Clearance Estimated 78 mL/min (50-200); Estimated Glomerular Filt Rate 63 ml/min (>60); GFR (African American) 77 ML/MIN (>60); Glucose 195 mg/dl (74-100); Magnesium 1.4 mg/dl (1.6-2.3)
--- NOTE | 2023-11-30 07:41 | XR_ITS ---
PROCEDURE INFORMATION: Exam: XR Chest Exam date and time: 11/30/2023 7:48 AM Age: 63 years old Clinical indication: Fever and shortness of breath; Additional info: New fever TECHNIQUE: Imaging protocol: Radiologic exam of the chest. Views: 1 view. COMPARISON: CR XR CHEST PORTABLE 04/09/2022 1:35 AM FINDINGS: Tubes, catheters and devices: Transvenous pacemaker leads in the heart Lungs: Unremarkable. No consolidation. Pleural spaces: Blunting in the costophrenic angles may represent small pleural effusions.. Heart/Mediastinum: Cardiomegaly Bones/joints: Unremarkable. IMPRESSION: Blunting in the costophrenic angles may represent small pleural effusions..
[2023-11-30 08:00] VITALS: BP 112/65; PULSE 70; RESP 18; TEMP 37.7; O2SAT 97
[2023-11-30] MEDS: FUROSEMIDE 40 MG TABLET PO (08:13)
[2023-11-30] MEDS: MAGNESIUM SULFATE IN WATER 2 GM/50 ML PIGGYBACK IV (08:13)
[2023-11-30] MEDS: OXcarbazepine 300MG TABLET 300 MG PO (08:13)
[2023-11-30] MEDS: METOPROLOL TARTRATE 50MG TABLET 200 MG PO (08:13)
[2023-11-30] MEDS: ASPIRIN EC 81MG TABLET 81 MG PO (08:13)
[2023-11-30] MEDS: DULOXETINE 30MG CAPSULE.DR 60 MG PO (08:14)
[2023-11-30] MEDS: FAMOTIDINE 20MG TABLET 20 MG PO (08:14)
[2023-11-30] MEDS: CLOPIDOGREL 75MG TAB 75 MG PO (08:14)
[2023-11-30] MEDS: AMIODARONE 200MG TABLET 200 MG PO (08:14)
[2023-11-30] MEDS: SPIRONOLACTONE 25MG TABLET 25 MG PO (08:14)
[2023-11-30] MEDS: APIXABAN 5MG TABLET 5 MG PO (08:14)
[2023-11-30 08:22] LABS: Eosinophils % 1 % (0-3); Hypochromasia 3+; Lymphocytes % 5 % (10-50); Microcytosis 2+; Monocytes % 2 % (2-9); Neutrophils % 92 % (42-76); Platelet Estimate Normal; Total Cells Counted 100
[2023-11-30 08:37] LABS: Adenovirus,PCR Not Detected (NotDetected); Bordetella Pertussis Not Detected (NotDetected); Chlamydophila Pneumoniae, PCR Not Detected (NotDetected); Coronavirus 19, PCR Not Detected (NotDetected); Coronavirus 229E Not Detected (NotDetected); Coronavirus NL63 Not Detected (NotDetected); Coronavirus OC43 Not Detected (NotDetected); Coronovirus HKU1,PCR Not Detected (NotDetected); Human Metapneumovirus Not Detected (NotDetected); Influenza A, PCR Not Detected (NotDetected); Influenza AH1, 2009 Not Detected (NotDetected); Influenza AH1, PCR Not Detected (NotDetected); Influenza AH3,PCR Not Detected (NotDetected); Influenza B, PCR Not Detected (NotDetected); Mycoplasma Pneumoniae, PCR Not Detected (NotDetected); Parainfluenza 1, PCR Not Detected (NotDetected); Parainfluenza 2, PCR Not Detected (NotDetected); Parainfluenza 3, PCR Not Detected (NotDetected); Parainfluenza 4, PCR Not Detected (NotDetected); Respiratory Syncytial Virus Not Detected (NotDetected); Rhinovirus/Enterovirus Not Detected (NotDetected)
[2023-11-30 09:25] LABS: Microscopic, Urine URINE MICROSCOPIC (MICROSCOPIC)
[2023-11-30] MEDS: POLYETHYLENE GLYCOL 3350 17 GM PACKET PO (09:26)
[2023-11-30] MEDS: FERROUS SULFATE 325MG TABLET 325 MG PO (09:27)
[2023-11-30 09:33] LABS: Appearance,Urine CLOUDY (Clear); Bilirubin,Urine Negative (Negative); Blood, Urine TRACE-I (Negative); Color,Urine YELLOW (Yellow); Glucose,Urine (UA) Negative (Negative); Ketones,Urine TRACE (Negative); Leukocyte Esterase,Urine 2+ (Negative); Nitrate,Urine POSITIVE (Negative); Protein,Urine TRACE (Negative); Urobilinogen,Urine 0.2 EU/dl (0.2)
[2023-11-30 09:57] LABS: Bacteria,Urine 4+ /lpf; WBC,Urine 20-50 #/hpf (0-3)
[2023-11-30] MEDS: ERTAPENEM SODIUM 1 GM in 0.9 % SODIUM CHLORIDE 50 ML IV (11:01)
[2023-11-30 11:25] LABS: POC Glucose,Bedside 154 (70-110)
[2023-11-30 12:00] VITALS: BP 123/70; PULSE 70; RESP 18; TEMP 36.7; O2SAT 97
--- NOTE | 2023-11-30 13:32 | EXP.DC.SUM ---
General Admission date:: 11/27/23 HPI HPI HPI: Jaci Steiner is a 63 year old female who presented to the ED with chest pain. She has a PMH of CAD, HTN, HLD, PAfib on Eliquis, s/p Pacemaker placement and HFpEF. this pt present with chest pain that started while she was sitting and eating lunch. this persisted for an hour prior to coming to the ED. The patient states this is a left sided CP that radiated to the BUEs and jaw that caused numbness. SOB was associated with the CP. this is a severe pain. CP did not improve with medication in the ED. 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 Denies palpitations, fever, chills, N/V/D, PND or orthopnea. She has chronic BLE edema due to chronic lymphedema. Hospital Course Hospital Course Hospital Course: Jaci Steiner is a 63 year old female who presented to the ED with chest pain. She has a PMH of CAD, HTN, HLD, PAfib on Eliquis, s/p Pacemaker placement, HFpEF, diabetes. this pt present with chest pain that started while she was sitting and eating lunch. this persisted for an hour prior to coming to the ED. The patient states this is a left sided CP that radiated to the BUEs and jaw that caused numbness. SOB was associated with the CP. this is a severe pain. CP did not improve with medication in the ED. 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 Denies palpitations, fever, chills, N/V/D, PND or orthopnea. She has chronic BLE edema due to chronic lymphedema. #CAD #Unstable angina - S/p PCI with 1 stent in mid LAD 11/27/23. ? Patient is pleasant, comfortable, chest pain-free. - Started aspirin 81mg, Plavix 75mg, atorvastatin 40mg. - ECHO shows normal biventricular systolic function. ? Restratification A1c 7.0, TSH normal, LDL normal. ? Medically stable to be discharged to SNF. Will follow-up with cardiology within 1 week. #Complicated cystitis #Fever ? Patient had a fever of 102.2 today, responding well to Tylenol. ? UA highly suggestive of UTI, with past culture showing ESBL E. coli sensitive to ertapenem, Bactrim, among others. ? No leukocytosis; unremarkable CXR, viral respiratory panel. No signs of sepsis. Patient sitting comfortably in bed. ? Patient was given 1 dose of IV ertapenem in the hospital. ? Discharged with 7 days of Bactrim. ? Will follow-up urine, blood cultures and report to SNF if they are positive for if antibiotics need to be adjusted. #Physical deconditioning ? PT/OT recommended SNF placement. [facility] has graciously accepted patient. #Afib - Stable, rate controlled, pacing. - Resumed home amiodarone, metoprolol, Eliquis. #HFpEF - Euvolemic at this time. - Resumed home Lasix 40 BID. #Diabetes - A1c 7.0, at goal for patient's age - Resumed home metformin. Exam Data for Last 24 hours Vital signs and Labs for Last 24 Hours: Temp Pulse Resp BP Pulse Ox O2 Del Method 98.0 F 70 18 123/70 97 Room Air 11/30/23 12:00 11/30/23 12:00 11/30/23 12:00 11/30/23 12:00 11/30/23 12:00 11/30/23 12:48 Laboratory Results - last 24 hr 11/29/23 16:04: POC Glucose 180 H 11/29/23 19:50: POC Glucose 205 H 11/30/23 05:31: POC Glucose 222 H 11/30/23 06:11: WBC 8.6 D, RBC 3.69 L, Hgb 7.3 L, Hct 24.5 L, MCV 66.4 L, MCH 19.7 L, MCHC 29.6 L, RDW 18.1 H, Plt Count 229, MPV 7.2 L, Neut % (Auto) 87.1 H, Lymph % (Auto) 5.0 L, [place] % (Auto) 6.3, Eos % (Auto) 1.0, Baso % (Auto) 0.7, Neut # (Auto) 7.5, Lymph # (Auto) 0.4 L, [place] # (Auto) 0.5, Eos # (Auto) 0.1, Baso # (Auto) 0.1, Total Counted 100, Neutrophils % (Manual) 92 H, Lymphocytes % (Manual) 5 L, Monocytes % (Manual) 2, Eosinophils % (Manual) 1, Platelet Estimate Normal, Hypochromasia 3+, Microcytosis 2+, Sodium 136, Potassium 4.6, Chloride 102, Carbon Dioxide 27, Anion Gap 11.6, BUN 16, Creatinine 0.90, Estimated Creat Clear 78, Estimated GFR 63, Est GFR ( Amer) 77, Glucose 195 H, Calcium 8.8, Magnesium 1.4 L D 11/30/23 08:35: Chlamy pneumoniae PCR Not detected, Adenovirus (PCR) Not detected, B. pertussis DNA (PCR) Not detected, Coronavirus OC43 (PCR) Not detected, Coronavirus HKU1 (PCR) Not detected, Coronavirus 229E (PCR) Not detected, SARS-CoV-2 (PCR) Not detected, Coronavirus NL63 (PCR) Not detected, Human Metapneumovir PCR Not detected, Influenza A (H1) PCR Not detected, Influ A (H1N1/09) PCR Not detected, Influenza A (H3) PCR Not detected, Influenza Type A (PCR) Not detected, Influenza Type B (PCR) Not detected, M. pneumoniae (PCR) Not detected, Parainfluenza 1 (PCR) Not detected, Parainfluenza 2 (PCR) Not detected, Parainfluenza 3 (PCR) Not detected, Parainfluenza 4 (PCR) Not detected, RSV (PCR) Not detected, Entero/Rhino (PCR) Not detected 11/30/23 09:12: Urine Color Yellow, Urine Appearance Cloudy, Urine pH 6.0, Ur Specific [place] 1.010, Urine Protein Trace, Urine Glucose (UA) Negative, Urine Ketones Trace, Urine Blood Trace-i, Urine Nitrate Positive, Urine Bilirubin Negative, Urine Urobilinogen 0.2, Ur Leukocyte Esterase 2+ A, Urine RBC 3-5, Urine WBC 20-50, Ur Squamous Epith Cells 3-5, Urine Bacteria 4+ 11/30/23 10:59: POC Glucose 154 H I & O for Last 24 hours: Intake & Output 11/27/23 11/28/23 11/29/23 11/30/23 23:59 23:59 23:59 23:59 Intake Total 240 / 240 840 / 1140 1500 / 1800 1120 / 1120 Output Total 250 / 250 0 / 250 250 / 250 0 / 0 Balance - 840 / 890 1250 / 1550 1120 / 1120 Weight 98.883 kg 83.46 kg 86.908 kg 85.548 kg Constitutional Constitutional: no acute distress *Routine HEENT Exam Head: Present normocephalic Eye: Present EOMI and PERRL ENT: Present mucous membranes moist *Routine Neck Exam Neck: Present supple; Absent lymphadenopathy *Routine Respiratory Exam Respiratory: Present CTA bilaterally *Routine Cardiovascular Exam Cardiovascular: Present RRR *Routine Abdominal Exam Abdominal: Present soft and normoactive bowel sounds; Absent tenderness *Routine Extremities Exam Extremities: Absent cyanosis, clubbing or edema *Routine Skin Exam Skin: Present warm; Absent rash *Routine Neurological Exam Neurological: Present alert and oriented X3 Results Data Completed and Pending Labs on day of discharge: Labs from last 24 hours 11/30/23 11/30/23 11/30/23 10:59 09:12 08:35 WBC RBC Hgb Hct MCV MCH MCHC RDW Plt Count MPV Neut % (Auto) Lymph % (Auto) [place] % (Auto) Eos % (Auto) Baso % (Auto) Neut # (Auto) Lymph # (Auto) [place] # (Auto) Eos # (Auto) Baso # (Auto) Total Counted Neutrophils % (Manual) Lymphocytes % (Manual) Monocytes % (Manual) Eosinophils % (Manual) Platelet Estimate Hypochromasia Microcytosis Sodium Potassium Chloride Carbon Dioxide Anion Gap BUN Creatinine Estimated Creat Clear Estimated GFR Est GFR ( Amer) Glucose POC Glucose 154 H Calcium Magnesium Urine Color Yellow Urine Appearance Cloudy Urine pH 6.0 Ur Specific [place] 1.010 Urine Protein Trace Urine Glucose (UA) Negative Urine Ketones Trace Urine Blood Trace-i Urine Nitrate Positive Urine Bilirubin Negative Urine Urobilinogen 0.2 Ur Leukocyte Esterase 2+ A Urine RBC 3-5 Urine WBC 20-50 Ur Squamous Epith Cells 3-5 Urine Bacteria 4+ Chlamy pneumoniae PCR Not detected Adenovirus (PCR) Not detected B. pertussis DNA (PCR) Not detected Coronavirus OC43 (PCR) Not detected Coronavirus HKU1 (PCR) Not detected Coronavirus 229E (PCR) Not detected SARS-CoV-2 (PCR) Not detected Coronavirus NL63 (PCR) Not detected Human Metapneumovir PCR Not detected Influenza A (H1) PCR Not detected Influ A (H1N1/09) PCR Not detected Influenza A (H3) PCR Not detected Influenza Type A (PCR) Not detected Influenza Type B (PCR) Not detected M. pneumoniae (PCR) Not detected Parainfluenza 1 (PCR) Not detected Parainfluenza 2 (PCR) Not detected Parainfluenza 3 (PCR) Not detected Parainfluenza 4 (PCR) Not detected RSV (PCR) Not detected Entero/Rhino (PCR) Not detected 11/30/23 11/30/23 11/29/23 06:11 05:31 19:50 WBC 8.6 D RBC 3.69 L Hgb 7.3 L Hct 24.5 L MCV 66.4 L MCH 19.7 L MCHC 29.6 L RDW 18.1 H Plt Count 229 MPV 7.2 L Neut % (Auto) 87.1 H Lymph % (Auto) 5.0 L [place] % (Auto) 6.3 Eos % (Auto) 1.0 Baso % (Auto) 0.7 Neut # (Auto) 7.5 Lymph # (Auto) 0.4 L [place] # (Auto) 0.5 Eos # (Auto) 0.1 Baso # (Auto) 0.1 Total Counted 100 Neutrophils % (Manual) 92 H Lymphocytes % (Manual) 5 L Monocytes % (Manual) 2 Eosinophils % (Manual) 1 Platelet Estimate Normal Hypochromasia 3+ Microcytosis 2+ Sodium 136 Potassium 4.6 Chloride 102 Carbon Dioxide 27 Anion Gap 11.6 BUN 16 Creatinine 0.90 Estimated Creat Clear 78 Estimated GFR 63 Est GFR ( Amer) 77 Glucose 195 H POC Glucose 222 H 205 H Calcium 8.8 Magnesium 1.4 L D Urine Color Urine Appearance Urine pH Ur Specific [place] Urine Protein Urine Glucose (UA) Urine Ketones Urine Blood Urine Nitrate Urine Bilirubin Urine Urobilinogen Ur Leukocyte Esterase Urine RBC Urine WBC Ur Squamous Epith Cells Urine Bacteria Chlamy pneumoniae PCR Adenovirus (PCR) B. pertussis DNA (PCR) Coronavirus OC43 (PCR) Coronavirus HKU1 (PCR) Coronavirus 229E (PCR) SARS-CoV-2 (PCR) Coronavirus NL63 (PCR) Human Metapneumovir PCR Influenza A (H1) PCR Influ A (H1N1/09) PCR Influenza A (H3) PCR Influenza Type A (PCR) Influenza Type B (PCR) M. pneumoniae (PCR) Parainfluenza 1 (PCR) Parainfluenza 2 (PCR) Parainfluenza 3 (PCR) Parainfluenza 4 (PCR) RSV (PCR) Entero/Rhino (PCR) 11/29/23 16:04 WBC RBC Hgb Hct MCV MCH MCHC RDW Plt Count MPV Neut % (Auto) Lymph % (Auto) [place] % (Auto) Eos % (Auto) Baso % (Auto) Neut # (Auto) Lymph # (Auto) [place] # (Auto) Eos # (Auto) Baso # (Auto) Total Counted Neutrophils % (Manual) Lymphocytes % (Manual) Monocytes % (Manual) Eosinophils % (Manual) Platelet Estimate Hypochromasia Microcytosis Sodium Potassium Chloride Carbon Dioxide Anion Gap BUN Creatinine Estimated Creat Clear Estimated GFR Est GFR ( Amer) Glucose POC Glucose 180 H Calcium Magnesium Urine Color Urine Appearance Urine pH Ur Specific [place] Urine Protein Urine Glucose (UA) Urine Ketones Urine Blood Urine Nitrate Urine Bilirubin Urine Urobilinogen Ur Leukocyte Esterase Urine RBC Urine WBC Ur Squamous Epith Cells Urine Bacteria Chlamy pneumoniae PCR Adenovirus (PCR) B. pertussis DNA (PCR) Coronavirus OC43 (PCR) Coronavirus HKU1 (PCR) Coronavirus 229E (PCR) SARS-CoV-2 (PCR) Coronavirus NL63 (PCR) Human Metapneumovir PCR Influenza A (H1) PCR Influ A (H1N1/09) PCR Influenza A (H3) PCR Influenza Type A (PCR) Influenza Type B (PCR) M. pneumoniae (PCR) Parainfluenza 1 (PCR) Parainfluenza 2 (PCR) Parainfluenza 3 (PCR) Parainfluenza 4 (PCR) RSV (PCR) Entero/Rhino (PCR) DS: Diagnosis Discharge Diagnosis (1) Abnormal EKG: Status: Acute Code(s): R94.31 - Abnormal electrocardiogram [ECG] [EKG] (2) (HFpEF) heart failure with preserved ejection fraction: Status: Acute Code(s): I50.30 - Unspecified diastolic (congestive) heart failure Qualifiers: Heart failure chronicity: chronic Qualified Code(s): I50.32 - Chronic diastolic (congestive) heart failure (3) Unstable angina: Status: Acute Code(s): I20.0 - Unstable angina (4) Paroxysmal atrial fibrillation: Status: Acute Code(s): I48.0 - Paroxysmal atrial fibrillation Meds Home Medications and Allergies Home Medications ?Medication ?Instructions ?Recorded ?Confirmed ?Type nortriptyline 10 mg capsule 10 mg PO HS Depression 06/20/17 11/27/23 History furosemide 40 mg tablet 40 mg PO BID Fluid 12/30/17 11/27/23 History metoprolol tartrate 100 mg tablet 200 mg PO BID 12/30/17 11/27/23 History spironolactone 25 mg tablet 25 mg PO DAILY 12/30/17 11/27/23 History apixaban 5 mg tablet 5 mg PO BID AFIB 08/28/19 11/27/23 History famotidine 20 mg tablet 20 mg PO BID 08/28/19 11/27/23 History oxcarbazepine 300 mg tablet 300 mg PO BID SEIZURES 10/27/21 11/27/23 History metformin 500 mg tablet,extended 1,000 mg PO BID 01/01/22 11/28/23 History release 24 hr duloxetine 30 mg capsule,delayed 30 mg PO DAILY mood 05/28/22 11/28/23 History release duloxetine 60 mg capsule,delayed 60 mg PO DAILY 12/11/22 11/27/23 History release amiodarone 200 mg tablet 200 mg PO DAILY 11/27/23 11/27/23 History acetaminophen 325 mg tablet 325 mg PO Q6H PRN Pain 11/28/23 11/28/23 History albuterol sulfate 90 mcg/actuation 2 puff inhalation Q4H PRN 11/28/23 11/28/23 History aerosol inhaler (Ventolin HFA) Shortness Of Breath Or Wheezing cetirizine 10 mg tablet 10 mg PO DAILY 11/28/23 11/28/23 History cholecalciferol (vitamin D3) 1,250 1,250 mcg PO WEEKLY 11/28/23 11/28/23 History mcg (50,000 unit) tablet cyclobenzaprine 5 mg tablet 5 mg PO BID PRN Muscle Pain 11/28/23 11/28/23 History fluticasone propionate 50 1 spray intranasal BID 11/28/23 11/28/23 History mcg/actuation nasal spray,suspension guaifenesin 1,200 mg tablet, 1,200 mg PO BID 11/28/23 11/28/23 History extended release 12 hr (Mucus Relief ER) guaifenesin 100 mg/5 mL oral 200 mg PO Q6H PRN Congestion 11/28/23 11/28/23 History liquid (Chest Congestion Relief) hydroxyzine pamoate 25 mg capsule 25 mg PO TID PRN Itching 11/28/23 11/28/23 History ketorolac 10 mg tablet 10 mg PO Q8H PRN Pain 11/28/23 11/28/23 History levothyroxine 25 mcg tablet 25 mcg PO DAILY 11/28/23 11/28/23 History loperamide 2 mg capsule 2 mg PO Q3H PRN Diarrhea 11/28/23 11/28/23 History nystatin 100,000 unit/gram topical 1 applic topical BID PRN Rash 11/28/23 11/28/23 History powder (Nystop) simethicone 125 mg capsule (Gas 125 mg PO QID PRN Gas Pain 11/28/23 11/28/23 History Relief Extra Strength) aspirin 81 mg tablet,delayed 81 mg PO DAILY 30 days #30 tabs 11/30/23 Rx release atorvastatin 40 mg tablet 40 mg PO HS 30 days #30 tabs 11/30/23 Rx clopidogrel 75 mg tablet 75 mg PO DAILY 30 days #30 tabs 11/30/23 Rx ferrous sulfate 325 mg (65 mg 325 mg PO BID 30 days #60 tabs 11/30/23 Rx iron) tablet polyethylene glycol 3350 17 gram 17 g PO DAILY 30 days #30 ea 11/30/23 Rx oral powder packet (HealthyLax) sulfamethoxazole 800 1 tab PO BID 7 days #14 tabs 11/30/23 Rx mg-trimethoprim 160 mg tablet (Bactrim DS) New Prescriptions to Start Prescriptions: aspirin Jimbo Smith atorvastatin Jimbo Smith clopidogrel Jimbo Smith ferrous sulfate Jimbo Smith polyethylene glycol 3350 [HealthyLax] Jimbo Smith sulfamethoxazole-trimethoprim [Bactrim DS] Jimbo Smith Allergies Allergy/AdvReac Type Severity Reaction Status Date / Time celecoxib [From CELEBREX] Allergy Unknown Unknown Verified 03/26/23 09:40 allergy reaction hydrocodone [From VICODIN] Allergy Unknown Unknown Verified 03/26/23 09:40 allergy reaction oxycodone [OXYCODONE] Allergy Unknown Unknown Verified 03/26/23 09:40 allergy reaction tramadol [From ULTRAM] Allergy Unknown Unknown Verified 03/26/23 09:40 allergy reaction Iodinated Contrast Media AdvReac Intermediate ITCHING Verified 03/26/23 09:40 [IODINATED CONTRAST MEDIA - ORAL AND] Discharge Plan Disposition Patient Disposition: Xfer SNF Discharge Order Discharge Orders: Discharge Order (Routine); Ordered 11/30/23 Ordered By: Jimbo Smith Follow up Plan Follow up with: Sanford Peñaloza PA [Physician [employer]] - 12/05/23 9:15 am Provider,MD Magaly [Referring] - See instructions Prescriptions/Medication Reconciliation: New atorvastatin 40 mg Tablet 40 mg PO HS 30 Days Qty: 30 0RF clopidogrel 75 mg Tablet 75 mg PO DAILY 30 Days Qty: 30 0RF aspirin 81 mg Tablet,Delayed Release (Dr/Ec) 81 mg PO DAILY 30 Days Qty: 30 0RF ferrous sulfate 325 mg (65 mg iron) Tablet 325 mg PO BID 30 Days Qty: 60 0RF polyethylene glycol 3350 [HealthyLax] 17 gram Powder In Packet 17 g PO DAILY 30 Days Qty: 30 0RF sulfamethoxazole-trimethoprim [Bactrim DS] 800-160 mg tablet 1 tab PO BID 7 Days Qty: 14 0RF Continued metformin 500 mg tablet extended release 24 hr 1,000 mg PO BID duloxetine 30 mg capsule,delayed release(DR/EC) 30 mg PO DAILY Rx Instructions: Give every morning with 60mg capsule to equal 90mg dose. duloxetine 60 mg capsule,delayed release(DR/EC) 60 mg PO DAILY Rx Instructions: Give every morning with 30mg capsule to equal 90mg dose. nortriptyline 10 capsule 10 mg PO HS furosemide 40 tablet 40 mg PO BID metoprolol tartrate 100 MG tablet 200 mg PO BID spironolactone 25 MG tablet 25 mg PO DAILY famotidine 20 MG tablet 20 mg PO BID apixaban 5 MG tablet 5 mg PO BID oxcarbazepine 300 mg tablet 300 mg PO BID amiodarone 200 mg tablet 200 mg PO DAILY Rx Instructions: TAKE 1 TABLET BY MOUTH ONCE DAILY acetaminophen 325 mg Tablet 325 mg PO Q6H PRN (Reason: Pain) loperamide 2 mg capsule 2 mg PO Q3H PRN (Reason: Diarrhea) cetirizine 10 mg Tablet 10 mg PO DAILY simethicone [Gas Relief Extra Strength] 125 mg capsule 125 mg PO QID PRN (Reason: Gas Pain) guaifenesin [Chest Congestion Relief] 100 mg/5 mL Liquid 200 mg PO Q6H PRN (Reason: Congestion) levothyroxine 25 mcg Tablet 25 mcg PO DAILY ketorolac 10 mg Tablet 10 mg PO Q8H PRN (Reason: Pain) Rx Instructions: maximum total duration of 5 days from all oral, intranasal, or parenteral formulations nystatin [Nystop] 100,000 unit/gram powder 1 applic TOPICAL BID PRN (Reason: Rash) albuterol sulfate [Ventolin HFA] 90 mcg/actuation HFA aerosol inhaler 2 puff INHALATION Q4H PRN (Reason: Shortness Of Breath Or Wheezing) hydroxyzine pamoate 25 mg capsule 25 mg PO TID PRN (Reason: Itching) cyclobenzaprine 5 mg Tablet 5 mg PO BID PRN (Reason: Muscle Pain) guaifenesin [Mucus Relief ER] 1,200 mg tablet extended release 12hr 1,200 mg PO BID cholecalciferol (vitamin D3) 1,250 mcg (50,000 unit) Tablet 1,250 mcg PO WEEKLY fluticasone propionate 50 mcg/actuation spray,suspension 1 spray INTRANASAL BID Discontinued atorvastatin 10 mg tablet 10 mg PO HS Problem Reconciliation Problems Reviewed?: Yes Patient Discharge Instructions ACTIVITY: Continue current activity DIET: cardiac Patient Instructions: Cardiac Catheterization, DI for Heart Failure, Surgical Site Infection Print Language: Occitan Providers Primary Care Provider: Dane Wheeler Admit Provider: Jimbo Smith Attending Provider: Jimbo Smith
== END 2023-11-30 15:08 | DRG 322 ==
LOC: ER 13:25 → CATHLAB 13:54 → 2ND 15:11
PROVIDERS: Internal Medicine; Admitting Provider Student in an Organized Health Care Education/Training Program; Emergency Provider Emergency Medicine; PCP Nurse Practitioner Acute Care; Visit Provider Student in an Organized Health Care Education/Training Program
PROC: 027034Z Dilation of Coronary Artery, One Artery with Drug-eluting Intraluminal Device, Percutaneous Approach (ICD-10-PCS; principal; 2023-11-27 13:35)
DX: I25.110 Atherosclerotic heart disease of native coronary artery with unstable angina pectoris (principal); I50.32 Chronic diastolic (congestive) heart failure; I11.0 Hypertensive heart disease with heart failure; E11.9 Type 2 diabetes mellitus without complications; E78.2 Mixed hyperlipidemia; Z95.0 Presence of cardiac pacemaker; I48.0 Paroxysmal atrial fibrillation; I89.0 Lymphedema, not elsewhere classified; R94.31 Abnormal electrocardiogram [ECG] [EKG]; Z79.899 Other long term (current) drug therapy; Z79.01 Long term (current) use of anticoagulants; Z87.891 Personal history of nicotine dependence; D50.8 Other iron deficiency anemias; Z79.84 Long term (current) use of oral hypoglycemic drugs
CPT/HCPCS: 36415; 71045; 80048; 80053; 80061; 80076; 81001; 82728; 82962; 83036; 83540; 83550; 83605; 83690; 83735; 83880; 84443; 84484; 85007; 85014; 85018; 85025; 85347; 86803; 87040; 87086; 87088; 87186; 87265; 87389; 87486; 87581; 87632; 87635; 92928; 93005; 93306; 93454; 97110; 97163; 97165; 97530; 99152; 99291; C1725; C1769; C1874; C9600; J1200; J1335; J1644; J2250; J2919; J3010; J3475; Q9967; S0028

== ENCOUNTER 2023-12-05 11:07 | Outpatient (CLI) | payer MEDICARE, BC, SELFPAY ==
[2023-12-05] VITALS (10 sets, daily range): BP systolic 111–126; BP diastolic 49–67; PULSE 69–72; RESP 18–19; TEMP 36–36.2; O2SAT 96–100; BMI 32.9
[2023-12-05 11:48] LABS: Hematocrit 24.2 % (37.0-47.0); Hemoglobin 7.2 g/dL (12.2-16.2)
[2023-12-05] MEDS: 0.9 % SODIUM CHLORIDE 250 ML 25 ML IV (12:40)
[2023-12-05 16:02] LABS: Hematocrit 24.3 % (37.0-47.0)
[2023-12-05 16:04] LABS: Hemoglobin 7.4 g/dL (12.2-16.2)
== END 2023-12-05 15:50 | disposition home or self-care (01) ==
LOC: INF 11:11
PROVIDERS: Nurse Practitioner Family; PCP Internal Medicine Adolescent Medicine; Visit Provider Internal Medicine Adolescent Medicine
DX: D50.9 Iron deficiency anemia, unspecified (principal); I25.10 Atherosclerotic heart disease of native coronary artery without angina pectoris; Z79.01 Long term (current) use of anticoagulants
CPT/HCPCS: 36430; 85014; 85018; 86850; P9016

== ENCOUNTER 2024-01-29 13:17 | Emergency (ER) | payer MEDICARE, BC, SELFPAY ==
[2024-01-29] VITALS (7 sets, daily range): BP systolic 108–137; BP diastolic 59–96; PULSE 70–73; RESP 13–20; TEMP 36.7–36.8; O2SAT 94–100; BMI 30.2
--- NOTE | 2024-01-29 13:19 | ECG_ITS ---
APPROVED REPORT Exam: Resting ECG HR:69 bpm ECG Measurements Heart Rate 69 AXES PA 299 P -78 QRSd 106 QRS -13 QT 418 T -60 QTc 438 Conclusion E[address]IC ATRIAL PACEMAKER ST DEVIATION AND MODERATE T-WAVE ABNORMALITY, CONSIDER ANTERIOR ISCHEMIA [-0.1+ mV T-WAVE IN V3/V4] ST deviations are not changed from prior EKG Electronically signed by : KOJO MAXWELL, 01/29/2024 14:31:32
--- NOTE | 2024-01-29 13:22 | ED_ITS ---
<Statement entered by Tatianna Crouch DO - 01/29/24 15:12> I was consulted by the SIENA, and we discussed the complexity of the problems being addressed. I approved the treatment and management plan for this patient's care in the emergency department, thus performing a substantive portion of the medical decision making. Tatianna Crouch DO Discharge Plan Disposition Patient Disposition: Home, Self-Care Condition: Good Prescriptions Prescriptions: New nitrofurantoin monohyd/m-cryst 100 mg capsule 100 mg PO BID 5 Days Qty: 10 0RF Rx Instructions: must administer with a meal/food No Action metformin 500 mg tablet extended release 24 hr 1,000 mg PO BID duloxetine 30 mg capsule,delayed release(DR/EC) 30 mg PO DAILY Rx Instructions: Give every morning with 60mg capsule to equal 90mg dose. duloxetine 60 mg capsule,delayed release(DR/EC) 60 mg PO DAILY Rx Instructions: Give every morning with 30mg capsule to equal 90mg dose. nortriptyline 10 capsule 10 mg PO HS furosemide 40 tablet 40 mg PO BID metoprolol tartrate 100 MG tablet 200 mg PO BID spironolactone 25 MG tablet 25 mg PO DAILY famotidine 20 MG tablet 20 mg PO BID apixaban 5 MG tablet 5 mg PO BID oxcarbazepine 300 mg tablet 300 mg PO BID amiodarone 200 mg tablet 200 mg PO DAILY Rx Instructions: TAKE 1 TABLET BY MOUTH ONCE DAILY acetaminophen 325 mg Tablet 325 mg PO Q6H PRN (Reason: Pain) loperamide 2 mg capsule 2 mg PO Q3H PRN (Reason: Diarrhea) cetirizine 10 mg Tablet 10 mg PO DAILY simethicone [Gas Relief Extra Strength] 125 mg capsule 125 mg PO QID PRN (Reason: Gas Pain) guaifenesin [Chest Congestion Relief] 100 mg/5 mL Liquid 200 mg PO Q6H PRN (Reason: Congestion) levothyroxine 25 mcg Tablet 25 mcg PO DAILY ketorolac 10 mg Tablet 10 mg PO Q8H PRN (Reason: Pain) Rx Instructions: maximum total duration of 5 days from all oral, intranasal, or parenteral formulations nystatin [Nystop] 100,000 unit/gram powder 1 applic TOPICAL BID PRN (Reason: Rash) albuterol sulfate [Ventolin HFA] 90 mcg/actuation HFA aerosol inhaler 2 puff INHALATION Q4H PRN (Reason: Shortness Of Breath Or Wheezing) hydroxyzine pamoate 25 mg capsule 25 mg PO TID PRN (Reason: Itching) cyclobenzaprine 5 mg Tablet 5 mg PO BID PRN (Reason: Muscle Pain) guaifenesin [Mucus Relief ER] 1,200 mg tablet extended release 12hr 1,200 mg PO BID cholecalciferol (vitamin D3) 1,250 mcg (50,000 unit) Tablet 1,250 mcg PO WEEKLY fluticasone propionate 50 mcg/actuation spray,suspension 1 spray INTRANASAL BID atorvastatin 40 mg Tablet 40 mg PO HS 30 Days Qty: 30 0RF clopidogrel 75 mg Tablet 75 mg PO DAILY 30 Days Qty: 30 0RF aspirin 81 mg Tablet,Delayed Release (Dr/Ec) 81 mg PO DAILY 30 Days Qty: 30 0RF ferrous sulfate 325 mg (65 mg iron) Tablet 325 mg PO BID 30 Days Qty: 60 0RF polyethylene glycol 3350 [HealthyLax] 17 gram Powder In Packet 17 g PO DAILY 30 Days Qty: 30 0RF sulfamethoxazole-trimethoprim [Bactrim DS] 800-160 mg tablet 1 tab PO BID 7 Days Qty: 14 0RF Referrals Follow up/Referrals: Major Chery II, MD [Staff Physician] - See instructions Provider,MD Magaly [Primary Care Provider] - See instructions Activity Restrictions/Add. Instructions Additional Instructions/Restrictions: I have sent medication in for urinary tract infection to your pharmacy. Please take it till it is gone. I have referred you to gastroenterology for initial evaluation of your hiatal hernia. Its likely longstanding however you could benefit from endoscopy given your frequency of chest pain. Follow-up with your PCP within 48 hours for recheck. Return to ER for any worsening signs or symptoms as needed. Clinical Impressions Clinical Impression: Chest pain, non-cardiac, Hernia, hiatal Urinary tract infection Qualifiers: Urinary tract infection type: site unspecified Hematuria presence: without hematuria Qualified Code(s): N39.0 - Urinary tract infection, site not specified Print Language Print Language: Luxembourgish Discharge ED Provider: Yoan Smith General Adult HPI <NELLA Valdivia - Last Filed: 01/29/24 17:45> General Chief complaint: PAIN Stated complaint: Chest pain Time Seen by Provider: 01/29/24 13:22 History of Present Illness HPI narrative: Patient presents from [facility] via EMS for complaint of chest pain. Patient states that she began having chest pain while eating. She states that it radiates down to both arms. She denies any dysphagia shortness of breath fever chills hemoptysis hematochezia melena nausea vomiting or diarrhea. Patient does have a history of diagnosed heart failure with preserved ejection fraction history of paroxysmal atrial fibrillation hypertension hyperlipidemia cardiac pacemaker. Related Data Home Medications ?Medication ?Instructions ?Recorded ?Confirmed nortriptyline 10 mg capsule 10 mg PO HS Depression 06/20/17 12/05/23 furosemide 40 mg tablet 40 mg PO BID Fluid 12/30/17 12/05/23 metoprolol tartrate 100 mg tablet 200 mg PO BID 12/30/17 12/05/23 spironolactone 25 mg tablet 25 mg PO DAILY 12/30/17 12/05/23 apixaban 5 mg tablet 5 mg PO BID AFIB 08/28/19 12/05/23 famotidine 20 mg tablet 20 mg PO BID 08/28/19 12/05/23 oxcarbazepine 300 mg tablet 300 mg PO BID SEIZURES 10/27/21 12/05/23 metformin 500 mg tablet,extended 1,000 mg PO BID 01/01/22 12/05/23 release 24 hr duloxetine 30 mg capsule,delayed 30 mg PO DAILY mood 05/28/22 12/05/23 release duloxetine 60 mg capsule,delayed 60 mg PO DAILY 12/11/22 12/05/23 release amiodarone 200 mg tablet 200 mg PO DAILY 11/27/23 12/05/23 acetaminophen 325 mg tablet 325 mg PO Q6H PRN Pain 11/28/23 12/05/23 albuterol sulfate 90 mcg/actuation 2 puff inhalation Q4H PRN 11/28/23 12/05/23 aerosol inhaler (Ventolin HFA) Shortness Of Breath Or Wheezing cetirizine 10 mg tablet 10 mg PO DAILY 11/28/23 12/05/23 cholecalciferol (vitamin D3) 1,250 1,250 mcg PO WEEKLY 11/28/23 12/05/23 mcg (50,000 unit) tablet cyclobenzaprine 5 mg tablet 5 mg PO BID PRN Muscle Pain 11/28/23 12/05/23 fluticasone propionate 50 1 spray intranasal BID 11/28/23 12/05/23 mcg/actuation nasal spray,suspension guaifenesin 1,200 mg tablet, 1,200 mg PO BID 11/28/23 12/05/23 extended release 12 hr (Mucus Relief ER) guaifenesin 100 mg/5 mL oral 200 mg PO Q6H PRN Congestion 11/28/23 12/05/23 liquid (Chest Congestion Relief) hydroxyzine pamoate 25 mg capsule 25 mg PO TID PRN Itching 11/28/23 12/05/23 ketorolac 10 mg tablet 10 mg PO Q8H PRN Pain 11/28/23 12/05/23 levothyroxine 25 mcg tablet 25 mcg PO DAILY 11/28/23 12/05/23 loperamide 2 mg capsule 2 mg PO Q3H PRN Diarrhea 11/28/23 12/05/23 nystatin 100,000 unit/gram topical 1 applic topical BID PRN Rash 11/28/23 12/05/23 powder (Nystop) simethicone 125 mg capsule (Gas 125 mg PO QID PRN Gas Pain 11/28/23 12/05/23 Relief Extra Strength) Previous Rx's ?Medication ?Instructions ?Recorded aspirin 81 mg tablet,delayed 81 mg PO DAILY 30 days #30 tabs 11/30/23 release atorvastatin 40 mg tablet 40 mg PO HS 30 days #30 tabs 11/30/23 clopidogrel 75 mg tablet 75 mg PO DAILY 30 days #30 tabs 11/30/23 ferrous sulfate 325 mg (65 mg 325 mg PO BID 30 days #60 tabs 11/30/23 iron) tablet polyethylene glycol 3350 17 gram 17 g PO DAILY 30 days #30 ea 11/30/23 oral powder packet (HealthyLax) sulfamethoxazole 800 1 tab PO BID 7 days #14 tabs 11/30/23 mg-trimethoprim 160 mg tablet (Bactrim DS) nitrofurantoin 100 mg PO BID 5 days #10 caps 01/29/24 monohydrate/macrocrystals 100 mg capsule Allergies Allergy/AdvReac Type Severity Reaction Status Date / Time celecoxib (From CELEBREX) Allergy Unknown Unknown Verified 12/05/23 10:01 allergy reaction hydrocodone (From VICODIN) Allergy Unknown Unknown Verified 12/05/23 10:01 allergy reaction oxycodone (OXYCODONE) Allergy Unknown Unknown Verified 12/05/23 10:01 allergy reaction tramadol (From ULTRAM) Allergy Unknown Unknown Verified 12/05/23 10:01 allergy reaction Iodinated Contrast Media AdvReac Intermediate ITCHING Verified 12/05/23 10:01 (IODINATED CONTRAST MEDIA - ORAL AND) [facility] <NELLA Valdivia - Last Filed: 01/29/24 17:45> [facility] Disclaimer: The information contained in this section may have been updated after the patient was seen, as this information can be updated by other users. Medical History Sciatica On amiodarone therapy Polyp of corpus uteri Abnormal abdominal CT scan Chest pain Postmenopausal bleeding Arthritis of knee, right Endometrial cells on cervical Pap smear inconsistent w/LMP Endometrial thickening on ultrasound Abnormal EKG Lymphedema (HFpEF) heart failure with preserved ejection fraction Paroxysmal atrial fibrillation Profound hearing loss of left ear severe to profound loss in left ear Right SNHL Moderate to severe Hearing loss, bilateral Otalgia Uterine leiomyoma Coronary artery disease History of left heart catheterization Arthritis Migraine History of gastroesophageal reflux (GERD) Gallbladder disease Congestive heart failure History of pacemaker Arrhythmia Left femoral shaft fracture Arthritis of left knee Arthritis of knee, right Allergic reaction Diabetes Reflux esophagitis Atypical chest pain Cervical disc disease Angina pectoris Dyspnea Contusion of right lower leg Adnexal cyst Lumbar facet arthropathy Lumbar spondylosis Sacroiliitis Hiatal hernia Cholelithiasis Infection due to ESBL-producing Escherichia coli UTI (urinary tract infection) Hypotension Hypokalemia Hyperglycemia Acute bronchitis Chest pain HHD (hypertensive heart disease) HLD (hyperlipidemia) HTN (hypertension) Tachycardia Atrial fibrillation Edema of lower extremity Atrial flutter Coronary arteriosclerosis Surgical History H/O arthroscopy of right knee Hx laparoscopic cholecystectomy Cardiac pacemaker in situ Family History Other No significant family history Social History Smoking Status: Never smoker alcohol intake: never counseling provided: none substance use type: denies use current occupational status: disabled Travel in the last 8 weeks: None caregiver/support person: Yes household members: other housing: assisted living facility lives independently: No marital status: single number of children: 0 current occupational exposures/hazards: No caffeine: No special enio needs: No agree to transfusion: No do you feel safe at home: Yes victim of physical abuse: No victim of emotional abuse: No victim of sexual abuse: No would you like helpful sources: No Have you lived/traveled outside [place] in past 30 days?: No Contact w/someone who lives/traveled outside US past 30 days?: No Exposure to someone with infectious disease in past 14 days?: No Do you have a fever (greater than 100.4 F or 38 C)?: No Have you tested positive for COVID-19: No Exposed to someone with COVID-19 in past 14 days?: No Do you have a sore throat?: No Do you have a cough?: No Do you have any weakness?: No Do you have any diarrhea?: No Are you experiencing any unusual bleeding?: No Do you have any muscle aches/pain?: No Do you have any abdominal pain?: No Are you experiencing loss of taste or smell?: No Other Medical History Have you received the Flu Vaccine for this season: No Have you received the Pneumonia Vaccine: No <NELLA Valdivia - Last Filed: 01/29/24 17:45> ROS Obtained: Yes Systems reviewed as appropriate & no additional complaints except as documented Physical Exam <NELLA Valdivia - Last Filed: 01/29/24 17:45> General General appearance: alert and in no apparent distress Respiratory Respiratory exam: Present normal lung sounds bilaterally Cardiovascular Cardiovascular exam: Present regular rate Neurological Exam Neurological exam: Present alert and oriented X3 Medical Decision Making <NELLA Valdivia - Last Filed: 01/29/24 17:45> Medical Records Medical records reviewed: Yes I reviewed the patient's medical records. Screening: Per USPSTF and CDC recommendations, given the prevalence of disease in our region, it is our hospital?s policy to screen for HIV and viral Hepatitis for all patients aged 18 and over and those with ongoing risk factors. [place] Inquiry Pt receiving controlled substance: No Vital Signs: 01/29/24 13:17 01/29/24 14:09 01/29/24 14:30 Temperature 98.2 F Temperature Source Oral Pulse Rate 70 Pulse Rate [Right Radial] 70 Respiratory Rate 20 13 14 Blood Pressure 137/72 126/74 Blood Pressure [Right Arm] 127/72 Blood Pressure Mean 93 Blood Pressure Mean [Right Arm] 90 Blood Pressure Source Blood Pressure Position 02 Sat by Pulse Oximetry 100 98 Oxygen Delivery Method Room Air 01/29/24 15:00 01/29/24 16:00 01/29/24 16:31 Temperature Temperature Source Pulse Rate 73 70 70 Pulse Rate [Right Radial] Respiratory Rate 13 16 13 Blood Pressure 108/59 L 123/96 H 127/81 Blood Pressure [Right Arm] Blood Pressure Mean Blood Pressure Mean [Right Arm] Blood Pressure Source Blood Pressure Position 02 Sat by Pulse Oximetry 94 L 99 97 Oxygen Delivery Method 01/29/24 16:43 Temperature 98.1 F Temperature Source Oral Pulse Rate 70 Pulse Rate [Right Radial] Respiratory Rate 18 Blood Pressure 127/81 Blood Pressure [Right Arm] Blood Pressure Mean Blood Pressure Mean [Right Arm] Blood Pressure Source Automatic Cuff Blood Pressure Position Sitting 02 Sat by Pulse Oximetry Oxygen Delivery Method Room Air Lab Data Lab results reviewed: Yes I reviewed the patient's lab results. Lab Results 01/29/24 13:30: WBC 5.6, RBC 4.40, Hgb 10.4 L, Hct 34.5 L, MCV 78.4 L, MCH 23.6 L, MCHC 30.1 L, RDW 21.2 H, Plt Count 199, MPV 9.6, Neut % (Auto) 66.1, Lymph % (Auto) 19.7, Meade % (Auto) 9.9 H, Eos % (Auto) 2.5, Baso % (Auto) 1.4, Neut # (Auto) 3.7, Lymph # (Auto) 1.1, [place] # (Auto) 0.6, Eos # (Auto) 0.1, Baso # (Auto) 0.1, Sodium 137, Potassium 3.3 L, Chloride 102, Carbon Dioxide 33 H, Anion Gap 5.3, BUN 11, Creatinine 0.90, Estimated Creat Clear 68, Estimated GFR 63, Est GFR ( Amer) 77, Glucose 161 H, Calcium 8.7, Magnesium 1.8, Total Bilirubin 0.4, AST 32, ALT 21, Alkaline Phosphatase 138 H, Troponin I < 0.01, N T-Pro-B Natriuret Pep 1300 H, Total Protein 7.1, Albumin 4.0, Globulin 3.1, Albumin/Globulin Ratio 1.3 01/29/24 14:00: Urine Color Yellow, Urine Appearance Sl cloudy, Urine pH 6.0, Ur Specific [place] 1.020, Urine Protein Negative, Urine Glucose (UA) Negative, Urine Ketones Negative, Urine Blood Negative, Urine Nitrate Positive A, Urine Bilirubin Negative, Urine Urobilinogen 0.2, Ur Leukocyte Esterase 1+ A, Urine RBC None, Urine WBC 5-10, Ur Squamous Epith Cells Occasional, Urine Bacteria 3+, Urine HCG, Qual Negative 01/29/24 15:41: Troponin I < 0.01 01/29/24 13:30 01/29/24 13:30 Orders (Tests/Meds): ED MEDICATIONS Generic Name Dose Route Start Last Admin Trade Name Freq PRN Reason Stop Dose Admin Ceftriaxone Sodium 1 gm/ 50 mls @ 100 mls/hr 01/29/24 15:15 01/29/24 15:09 Sodium Chloride IV 02/08/24 15:14 100 mls/hr Q24H MARIXA Administration Sodium Chloride 10 ml 01/29/24 15:23 01/29/24 15:33 Sodium Chloride 0.9% 10ml Syr (Rad Only) IV 02/28/24 15:22 10 ml NEEDED PRN Administration Maintain IV Site Discontinued Medications Generic Name Dose Route Start Last Admin Trade Name Freq PRN Reason Stop Dose Admin Acetaminophen 1,000 mg 01/29/24 13:23 01/29/24 13:39 Acetaminophen 1,000mg/100ml Vial IV 01/29/24 13:24 1,000 mg ONCE ONE Administration Belladonna Alkaloids 60 ml 01/29/24 13:23 01/29/24 13:39 Belladonna Alkaloids 60 Ml Ml PO 01/29/24 13:24 60 ml ONCE ONE Administration Diphenhydramine HCl 50 mg 01/29/24 14:26 01/29/24 14:34 Diphenhydramine 50mg/Ml Vial IV 01/29/24 14:27 50 mg ONCE ONE Administration Sodium Chloride 1,000 mls @ 999 mls/hr 01/29/24 14:26 01/29/24 14:34 Sod Chlor 0.9% 1000ml Bag IV 01/29/24 15:26 999 mls/hr .Q1H1M ONE Administration Iopamidol 80 ml 01/29/24 15:23 01/29/24 15:24 Iopamidol-370 (76%);100ml Bottle IV 01/29/24 15:24 80 ml ONCE ONE Administration Methylprednisolone Sodium Succinate 125 mg 01/29/24 14:26 01/29/24 14:33 Methylprednisolone Sod Succ 125mg Vial IV 01/29/24 14:27 125 mg ONCE ONE Administration Ondansetron HCl 4 mg 01/29/24 13:23 01/29/24 13:39 Ondansetron 4mg/2ml Vial IV 01/29/24 13:24 4 mg ONCE ONE Administration Sodium Chloride 50 ml 01/29/24 15:23 01/29/24 15:24 0.9 % Sodium Chloride 50 Ml Vial IV 01/29/24 15:24 50 ml ONCE ONE Administration ORDERS Category Date Time Status CT angio chest - dissection Stat Cat Scan 01/29/24 13:23 Completed BNP [NT Pro Brain Natriuretic Pep.] Stat Lab 01/29/24 13:30 Completed CBC w/Auto Diff [Complete Blood Count Auto Diff] Stat Lab 01/29/24 13:30 Completed CMP [Comprehensive Metabolic Panel] Stat Lab 01/29/24 13:30 Completed Magnesium Stat Lab 01/29/24 13:30 Completed Trop I [Troponin I] Stat Lab 01/29/24 13:30 Completed Troponin I Q3H Lab 01/29/24 15:41 Completed Troponin I Q3H Lab 01/29/24 19:30 Ordered UA [Urinalysis and Microscopic] Stat Lab 01/29/24 14:00 Completed Urine , HCG Qual. Stat Lab 01/29/24 14:00 Completed Urine Culture Stat Micro 01/29/24 14:00 Received HEART Score History (anamnesis): Slightly suspicious ECG: Non-specific disturbance Age: 45-65 years Risk factors: 3 or more risk factors Troponin: </= normal limit HEART Score: 4 Medical Decision Narrative: In summary patient is a 63-year-old female who presents to the emergency department for evaluation of substernal chest pain. Patient is hemodynamically stable upon arrival, afebrile. Physical exam is remarkable for an overweight, with a BMI of 30, 63-year-old female who is well-nourished well-developed but otherwise in no acute distress. Breath sounds are clear and equal bilaterally to the bases without adventitious sounds. Patient has no increased work of breathing. Patient satting greater than 94% on room air, EKG appears to be normal sinus rhythm on the bedside monitor, chest pain is not reproducible on exam, patient has no epigastric tenderness no abdominal tenderness and abdomen is soft without rebound or guarding or rigidity with normal bowel sounds.. Differential diagnosis includes ACS versus pneumonia versus esophagitis versus ulcer disease etc. Initial workup will be conducted with hematologic labs, CTA dissection protocol of the chest,. Initial interventions include crystalloid bolus Tylenol GI cocktail. Initial workup reviewed by me shows that her hematologic labs are nonactionable including undetectable troponin and my informal interpretation of her CTA of her chest does not show any dissection or thrombus but does show a thoracic stomach through a large hiatal hernia. Upon repeat evaluation patient reported that she received no relief after GI cocktail or other interventions. Given this the patient was placed in observation status at 1400 hrs. Medical necessity for observational status is serial troponins. The patient was provided serial reevaluations continuous cardiac monitoring pulse oximetry while awaiting results. Results of the second troponin again show that it is undetectable essentially ruling out ACS. Because of this patient is appropriate for discharge with referral to gastroenterology for upper endoscopy and possible referral to bariatric surgery for hiatal hernia evaluation. Total time in observation was 2 hours and 30 minutes. <Tatianna Crouch, DO - Last Filed: 01/29/24 13:53> Vital Signs: 01/29/24 13:17 01/29/24 14:09 01/29/24 14:30 Temperature 98.2 F Temperature Source Oral Pulse Rate 70 Pulse Rate [Right Radial] 70 Respiratory Rate 20 13 14 Blood Pressure 137/72 126/74 Blood Pressure [Right Arm] 127/72 Blood Pressure Mean 93 Blood Pressure Mean [Right Arm] 90 Blood Pressure Source Blood Pressure Position 02 Sat by Pulse Oximetry 100 98 Oxygen Delivery Method Room Air 01/29/24 15:00 01/29/24 16:00 01/29/24 16:31 Temperature Temperature Source Pulse Rate 73 70 70 Pulse Rate [Right Radial] Respiratory Rate 13 16 13 Blood Pressure 108/59 L 123/96 H 127/81 Blood Pressure [Right Arm] Blood Pressure Mean Blood Pressure Mean [Right Arm] Blood Pressure Source Blood Pressure Position 02 Sat by Pulse Oximetry 94 L 99 97 Oxygen Delivery Method 01/29/24 16:43 Temperature 98.1 F Temperature Source Oral Pulse Rate 70 Pulse Rate [Right Radial] Respiratory Rate 18 Blood Pressure 127/81 Blood Pressure [Right Arm] Blood Pressure Mean Blood Pressure Mean [Right Arm] Blood Pressure Source Automatic Cuff Blood Pressure Position Sitting 02 Sat by Pulse Oximetry Oxygen Delivery Method Room Air Lab Data Lab Results 01/29/24 13:30: WBC 5.6, RBC 4.40, Hgb 10.4 L, Hct 34.5 L, MCV 78.4 L, MCH 23.6 L, MCHC 30.1 L, RDW 21.2 H, Plt Count 199, MPV 9.6, Neut % (Auto) 66.1, Lymph % (Auto) 19.7, [place] % (Auto) 9.9 H, Eos % (Auto) 2.5, Baso % (Auto) 1.4, Neut # (Auto) 3.7, Lymph # (Auto) 1.1, [place] # (Auto) 0.6, Eos # (Auto) 0.1, Baso # (Auto) 0.1, Sodium 137, Potassium 3.3 L, Chloride 102, Carbon Dioxide 33 H, Anion Gap 5.3, BUN 11, Creatinine 0.90, Estimated Creat Clear 68, Estimated GFR 63, Est GFR ( Amer) 77, Glucose 161 H, Calcium 8.7, Magnesium 1.8, Total Bilirubin 0.4, AST 32, ALT 21, Alkaline Phosphatase 138 H, Troponin I < 0.01, N T-Pro-B Natriuret Pep 1300 H, Total Protein 7.1, Albumin 4.0, Globulin 3.1, Albumin/Globulin Ratio 1.3 01/29/24 14:00: Urine Color Yellow, Urine Appearance Sl cloudy, Urine pH 6.0, Ur Specific [place] 1.020, Urine Protein Negative, Urine Glucose (UA) Negative, Urine Ketones Negative, Urine Blood Negative, Urine Nitrate Positive A, Urine Bilirubin Negative, Urine Urobilinogen 0.2, Ur Leukocyte Esterase 1+ A, Urine RBC None, Urine WBC 5-10, Ur Squamous Epith Cells Occasional, Urine Bacteria 3+, Urine HCG, Qual Negative 01/29/24 15:41: Troponin I < 0.01 Orders (Tests/Meds): ED MEDICATIONS Generic Name Dose Route Start Last Admin Trade Name Freq PRN Reason Stop Dose Admin Ceftriaxone Sodium 1 gm/ 50 mls @ 100 mls/hr 01/29/24 15:15 01/29/24 15:09 Sodium Chloride IV 12/28/24 15:14 100 mls/hr Q24H MARIXA Administration Sodium Chloride 10 ml 01/29/24 15:23 01/29/24 15:33 Sodium Chloride 0.9% 10ml Syr (Rad Only) IV 02/28/24 15:22 10 ml NEEDED PRN Administration Maintain IV Site Discontinued Medications Generic Name Dose Route Start Last Admin Trade Name Freq PRN Reason Stop Dose Admin Acetaminophen 1,000 mg 01/29/24 13:23 01/29/24 13:39 Acetaminophen 1,000mg/100ml Vial IV 01/29/24 13:24 1,000 mg ONCE ONE Administration Belladonna Alkaloids 60 ml 01/29/24 13:23 01/29/24 13:39 Belladonna Alkaloids 60 Ml Ml PO 01/29/24 13:24 60 ml ONCE ONE Administration Diphenhydramine HCl 50 mg 01/29/24 14:26 01/29/24 14:34 Diphenhydramine 50mg/Ml Vial IV 01/29/24 14:27 50 mg ONCE ONE Administration Sodium Chloride 1,000 mls @ 999 mls/hr 01/29/24 14:26 01/29/24 14:34 Sod Chlor 0.9% 1000ml Bag IV 01/29/24 15:26 999 mls/hr .Q1H1M ONE Administration Iopamidol 80 ml 01/29/24 15:23 01/29/24 15:24 Iopamidol-370 (76%);100ml Bottle IV 01/29/24 15:24 80 ml ONCE ONE Administration Methylprednisolone Sodium Succinate 125 mg 01/29/24 14:26 01/29/24 14:33 Methylprednisolone Sod Succ 125mg Vial IV 01/29/24 14:27 125 mg ONCE ONE Administration Ondansetron HCl 4 mg 01/29/24 13:23 01/29/24 13:39 Ondansetron 4mg/2ml Vial IV 01/29/24 13:24 4 mg ONCE ONE Administration Sodium Chloride 50 ml 01/29/24 15:23 01/29/24 15:24 0.9 % Sodium Chloride 50 Ml Vial IV 01/29/24 15:24 50 ml ONCE ONE Administration ORDERS Category Date Time Status CT angio chest - dissection Stat Cat Scan 01/29/24 13:23 Completed BNP [NT Pro Brain Natriuretic Pep.] Stat Lab 01/29/24 13:30 Completed CBC w/Auto Diff [Complete Blood Count Auto Diff] Stat Lab 01/29/24 13:30 Completed CMP [Comprehensive Metabolic Panel] Stat Lab 01/29/24 13:30 Completed Magnesium Stat Lab 01/29/24 13:30 Completed Trop I [Troponin I] Stat Lab 01/29/24 13:30 Completed Troponin I Q3H Lab 01/29/24 15:41 Completed Troponin I Q3H Lab 01/29/24 19:30 Ordered UA [Urinalysis and Microscopic] Stat Lab 01/29/24 14:00 Completed Urine , HCG Qual. Stat Lab 01/29/24 14:00 Completed Urine Culture Stat Micro 01/29/24 14:00 Received ECG Data Tracing #1: I reviewed this ECG and interpreted as documented below: Atrially paced at a ventricular to [address]/T wave changes without acute STEMI. Unchanged from prior EKG ECG initial impression date: 01/29/24 ECG initial impression time: 13:21 Critical Care <NELLA Valdivia - Last Filed: 01/29/24 17:45> Critical Care Time Critical Care Time: No
--- NOTE | 2024-01-29 13:23 | CT_ITS ---
FINAL REPORT TECHNIQUE: Thin section axial CT with contrast with multiplanar reconstruction This study was performed with techniques to keep radiation doses as low as reasonably achievable, (ALARA). Individualized dose reduction techniques using automated exposure control or adjustment of mA and/or kV according to the patient''s size were employed. CLINICAL HISTORY: Acute chest pain COMPARISON: None FINDINGS: Pulmonary vessels enhance in normal fashion without gross evidence of central pulmonary embolism. Thoracic aorta shows no dissection or aneurysm. Note is made of enlarged central pulmonary veins, which may be seen with pulmonary arterial hypertension. No cardiomegaly is noted. No pulmonary mass or infiltrate is present. There is no significant pleural effusion. There is no significant pericardial effusion. No mediastinal or hilar adenopathy is present. A large hiatal hernia is present. Note is made of a duplicated superior vena cava as a normal variant. IMPRESSION: No thoracic dissection or aneurysm is identified. No gross evidence of central pulmonary emboli is seen. Large hiatal hernia. Reviewed, Interpreted and Dictated by Terry Bonilla MD Transcribed by Ruma Gee Authenticated and [facility]
[2024-01-29] MEDS: ACETAMINOPHEN 1,000MG/100ML VIAL 1000 MG IV (13:39)
[2024-01-29] MEDS: ONDANSETRON 4MG/2ML VIAL 4 MG IV (13:39)
[2024-01-29] MEDS: BELLADONNA ALKALOIDS 60 ML ML PO (13:39)
[2024-01-29 13:47] LABS: Basophils % 1.4 % (0.1-2.0); Eosinophils % 2.5 % (0.1-12.0); Hematocrit 34.5 % (37.0-47.0); Hemoglobin 10.4 g/dL (12.2-16.2); Lymphocytes % 19.7 % (10-50); Mean Corpuscular HGB Conc 30.1 g/dL (31.8-35.4); Mean Corpuscular Hemoglobin 23.6 pg (27.0-31.2); Mean Corpuscular Volume 78.4 fl (81-99); Mean Platelet Volume 9.6 fl (7.4-10.4); Monocytes % 9.9 % (1.7-9.3); Neutrophils % 66.1 % (37.0-80.0); Platelet Count 199 K/mm3 (142-424); Red Cell Distribution Width 21.2 % (11.5-17.5); White Blood Count 5.6 K/mm3 (4.8-10.8)
[2024-01-29 13:48] LABS: Basophils # 0.1 K/mm3 (0-0.2); Eosinophils # 0.1 K/mm3 (0.0-0.4); Lymphocytes # 1.1 K/mm3 (0.7-4.5); Monocytes # 0.6 K/mm3 (0.1-1.0); Neutrophils # 3.7 K/mm3 (1.8-7.8)
[2024-01-29 13:49] LABS: Chloride 102 mmol/L (98-107); Potassium 3.3 mmoL/L (3.5-5.1); Sodium 137 mmol/L (136-145)
[2024-01-29 13:52] LABS: Alanine Aminotransferase 21 U/L (12-78); Albumin/Globulin Ratio 1.3 (1.1-1.8); Alkaline Phosphatase 138 U/L (38-126); Anion Gap 5.3 mEq/L (5-15); Aspartate Amino Transferase 32 U/L (14-36); Bilirubin,Total 0.4 mg/dl (0.2-1.3); Blood Urea Nitrogen 11 mg/dl (7-17); Calcium 8.7 mg/dl (8.4-10.2); Carbon Dioxide 33 mmol/L (22.0-30.0); Creatinine Clearance Estimated 68 mL/min (50-200); Estimated Glomerular Filt Rate 63 ml/min (>60); GFR (African American) 77 ML/MIN (>60); Globulin 3.1 g/dL (1.3-3.2); Glucose 161 mg/dl (74-100); Magnesium 1.8 mg/dl (1.6-2.3); Total Protein,Serum 7.1 g/dl (6.3-8.2)
[2024-01-29 14:03] LABS: NT Pro Brain Natriuretic Pep. 1300 pg/mL (0-125)
[2024-01-29 14:06] LABS: Troponin I < 0.01 ng/ml (0.00-0.034)
[2024-01-29 14:17] LABS: Microscopic, Urine URINE MICROSCOPIC (MICROSCOPIC)
[2024-01-29 14:19] LABS: Appearance,Urine SL CLOUDY (Clear); Bilirubin,Urine Negative (Negative); Blood, Urine Negative (Negative); Color,Urine YELLOW (Yellow); Glucose,Urine (UA) Negative (Negative); Ketones,Urine Negative (Negative); Leukocyte Esterase,Urine 1+ (Negative); Nitrate,Urine POSITIVE (Negative); Protein,Urine Negative (Negative); Urobilinogen,Urine 0.2 EU/dl (0.2)
[2024-01-29 14:21] LABS: Urine Pregnancy, HCG Qual. Negative (Negative)
[2024-01-29 14:28] LABS: Bacteria,Urine 3+ /lpf; Squamous Epithelial Cell,Urine Occasional #/hpf (0-5)
[2024-01-29] MEDS: METHYLPREDNISOLONE SOD SUCC 125MG VIAL 125 MG IV (14:33)
[2024-01-29] MEDS: 0.9 % SODIUM CHLORIDE 1000ML 1,000 ML 999 ML IV (14:34)
[2024-01-29] MEDS: diphenhydrAMINE 50MG/ML VIAL 50 MG IV (14:34)
[2024-01-29] MEDS: CEFTRIAXONE 1 GM 1 GM in 0.9 % SODIUM CHLORIDE 50 ML IV (15:09)
--- NOTE | 2024-01-29 15:14 | PC.NURSE ---
PT TO CT
[2024-01-29] MEDS: 0.9 % SODIUM CHLORIDE 50 ML VIAL IV (15:24)
[2024-01-29] MEDS: IOPAMIDOL-370 (76%);100ML BOTTLE 80 ML IV (15:24)
[2024-01-29] MEDS: SODIUM CHLORIDE 0.9% 10ML SYR (RAD ONLY) 10 ML IV (15:33)
[2024-01-29 16:11] LABS: Troponin I < 0.01 ng/ml (0.00-0.034)
--- NOTE | 2024-01-31 09:37 | PC.NURSE ---
[facility], pt is feeling better, no need to change antibiotic at this time per
== END 2024-01-29 17:38 | disposition home or self-care (01) ==
PROVIDERS: Physician Assistant; Emergency Provider Student in an Organized Health Care Education/Training Program
DX: N39.0 Urinary tract infection, site not specified (principal); K44.9 Diaphragmatic hernia without obstruction or gangrene; R07.89 Other chest pain; R07.9 Chest pain, unspecified
CPT/HCPCS: 71275; 80053; 81001; 81025; 83735; 83880; 84484; 85025; 87086; 87088; 87186; 93005; 96361; 96374; 96375; 99285; J0131; J0696; J1200; J2405; J2919; J7030; Q9967

== ENCOUNTER 2024-02-27 21:41 | Emergency (ER) | payer MEDICARE, OTHER, SELFPAY ==
[2024-02-27 21:41] VITALS: BP 119/73; PULSE 70; RESP 20; TEMP 36.9; O2SAT 99; BMI 32.2
[2024-02-27 22:00] VITALS: BP 123/66; PULSE 72; O2SAT 98
[2024-02-27 22:51] VITALS: BP 136/85; PULSE 87; RESP 20; TEMP 36.6; O2SAT 97
--- NOTE | 2024-02-27 23:40 | ED_ITS ---
Discharge Plan Disposition Patient Disposition: Xfer Other Condition: Good Prescriptions Prescriptions: No Action metformin 500 mg tablet extended release 24 hr 1,000 mg PO BID duloxetine 30 mg capsule,delayed release(DR/EC) 30 mg PO DAILY Rx Instructions: Give every morning with 60mg capsule to equal 90mg dose. duloxetine 60 mg capsule,delayed release(DR/EC) 60 mg PO DAILY Rx Instructions: Give every morning with 30mg capsule to equal 90mg dose. nortriptyline 10 capsule 10 mg PO HS furosemide 40 tablet 40 mg PO BID metoprolol tartrate 100 MG tablet 200 mg PO BID spironolactone 25 MG tablet 25 mg PO DAILY famotidine 20 MG tablet 20 mg PO BID apixaban 5 MG tablet 5 mg PO BID oxcarbazepine 300 mg tablet 300 mg PO BID nitrofurantoin monohyd/m-cryst 100 mg capsule 100 mg PO BID 5 Days Qty: 10 0RF Rx Instructions: must administer with a meal/food amiodarone 200 mg tablet 200 mg PO DAILY Rx Instructions: TAKE 1 TABLET BY MOUTH ONCE DAILY acetaminophen 325 mg Tablet 325 mg PO Q6H PRN (Reason: Pain) loperamide 2 mg capsule 2 mg PO Q3H PRN (Reason: Diarrhea) cetirizine 10 mg Tablet 10 mg PO DAILY simethicone [Gas Relief Extra Strength] 125 mg capsule 125 mg PO QID PRN (Reason: Gas Pain) guaifenesin [Chest Congestion Relief] 100 mg/5 mL Liquid 200 mg PO Q6H PRN (Reason: Congestion) levothyroxine 25 mcg Tablet 25 mcg PO DAILY ketorolac 10 mg Tablet 10 mg PO Q8H PRN (Reason: Pain) Rx Instructions: maximum total duration of 5 days from all oral, intranasal, or parenteral formulations nystatin [Nystop] 100,000 unit/gram powder 1 applic TOPICAL BID PRN (Reason: Rash) albuterol sulfate [Ventolin HFA] 90 mcg/actuation HFA aerosol inhaler 2 puff INHALATION Q4H PRN (Reason: Shortness Of Breath Or Wheezing) hydroxyzine pamoate 25 mg capsule 25 mg PO TID PRN (Reason: Itching) cyclobenzaprine 5 mg Tablet 5 mg PO BID PRN (Reason: Muscle Pain) guaifenesin [Mucus Relief ER] 1,200 mg tablet extended release 12hr 1,200 mg PO BID cholecalciferol (vitamin D3) 1,250 mcg (50,000 unit) Tablet 1,250 mcg PO WEEKLY fluticasone propionate 50 mcg/actuation spray,suspension 1 spray INTRANASAL BID atorvastatin 40 mg Tablet 40 mg PO HS 30 Days Qty: 30 0RF clopidogrel 75 mg Tablet 75 mg PO DAILY 30 Days Qty: 30 0RF aspirin 81 mg Tablet,Delayed Release (Dr/Ec) 81 mg PO DAILY 30 Days Qty: 30 0RF ferrous sulfate 325 mg (65 mg iron) Tablet 325 mg PO BID 30 Days Qty: 60 0RF polyethylene glycol 3350 [HealthyLax] 17 gram Powder In Packet 17 g PO DAILY 30 Days Qty: 30 0RF sulfamethoxazole-trimethoprim [Bactrim DS] 800-160 mg tablet 1 tab PO BID 7 Days Qty: 14 0RF Referrals Follow up/Referrals: Rosetta Harley APRN [Primary Care Provider] - See instructions Activity Restrictions/Add. Instructions Additional Instructions/Restrictions: You were evaluated in the emergency department today. Please follow-up with your primary care provider. Please also follow-up in the lymphedema clinic. You will need to contact them to schedule an appointment. Keep your legs elevated to help reduce swelling. Do not wear pants that have tight bands around your calves like that. Clinical Impressions Clinical Impression: Lymphedema Instructions Patient Instructions: DI for Lymphedema Print Language Print Language: Citizen Of [place] Discharge ED Provider: Tatianna Crouch General Adult HPI General Chief complaint: Extremity Injury, Lower Stated complaint: R leg swollen Time Seen by Provider: 02/27/24 22:07 Mode of Arrival: EMS Source of Information: Patient and EMS Limitations: No Limitations Description of Symptoms (Recalled from ER Triage Doc. by RN): EMS reports that [facility] staff members called due to the pts right leg being more swollen and red than the left. pt sometimes expierences pain due to the swelling. History of Present Illness HPI narrative: This patient is a 64-year-old female with a history of hypertension, hyperlipidemia, CHF, CAD, diabetes, atrial flutter, and lymphedema, worse in her right lower extremity, presenting to the emergency department for evaluation with concern for continued swelling and intermittent pain. It is not hurting right now, it usually does sometimes randomly at night. She states that she has not been to the lymphedema clinic in a while so the staff at [facility] sent her over for evaluation. She currently has no concerns or complaints and states she is feeling fine at this time. She notes that looking at it, it does not appear more swollen than normal. She does have on very tight pants with an elastic band that is cutting tight into her calves. Related Data Home Medications ?Medication ?Instructions ?Recorded ?Confirmed nortriptyline 10 mg capsule 10 mg PO HS Depression 06/20/17 12/05/23 furosemide 40 mg tablet 40 mg PO BID Fluid 12/30/17 12/05/23 metoprolol tartrate 100 mg tablet 200 mg PO BID 12/30/17 12/05/23 spironolactone 25 mg tablet 25 mg PO DAILY 12/30/17 12/05/23 apixaban 5 mg tablet 5 mg PO BID AFIB 08/28/19 12/05/23 famotidine 20 mg tablet 20 mg PO BID 08/28/19 12/05/23 oxcarbazepine 300 mg tablet 300 mg PO BID SEIZURES 10/27/21 12/05/23 metformin 500 mg tablet,extended 1,000 mg PO BID 01/01/22 12/05/23 release 24 hr duloxetine 30 mg capsule,delayed 30 mg PO DAILY mood 05/28/22 12/05/23 release duloxetine 60 mg capsule,delayed 60 mg PO DAILY 12/11/22 12/05/23 release amiodarone 200 mg tablet 200 mg PO DAILY 11/27/23 12/05/23 acetaminophen 325 mg tablet 325 mg PO Q6H PRN Pain 11/28/23 12/05/23 albuterol sulfate 90 mcg/actuation 2 puff inhalation Q4H PRN 11/28/23 12/05/23 aerosol inhaler (Ventolin HFA) Shortness Of Breath Or Wheezing cetirizine 10 mg tablet 10 mg PO DAILY 11/28/23 12/05/23 cholecalciferol (vitamin D3) 1,250 1,250 mcg PO WEEKLY 11/28/23 12/05/23 mcg (50,000 unit) tablet cyclobenzaprine 5 mg tablet 5 mg PO BID PRN Muscle Pain 11/28/23 12/05/23 fluticasone propionate 50 1 spray intranasal BID 11/28/23 12/05/23 mcg/actuation nasal spray,suspension guaifenesin 1,200 mg tablet, 1,200 mg PO BID 11/28/23 12/05/23 extended release 12 hr (Mucus Relief ER) guaifenesin 100 mg/5 mL oral 200 mg PO Q6H PRN Congestion 11/28/23 12/05/23 liquid (Chest Congestion Relief) hydroxyzine pamoate 25 mg capsule 25 mg PO TID PRN Itching 11/28/23 12/05/23 ketorolac 10 mg tablet 10 mg PO Q8H PRN Pain 11/28/23 12/05/23 levothyroxine 25 mcg tablet 25 mcg PO DAILY 11/28/23 12/05/23 loperamide 2 mg capsule 2 mg PO Q3H PRN Diarrhea 11/28/23 12/05/23 nystatin 100,000 unit/gram topical 1 applic topical BID PRN Rash 11/28/23 12/05/23 powder (Nystop) simethicone 125 mg capsule (Gas 125 mg PO QID PRN Gas Pain 11/28/23 12/05/23 Relief Extra Strength) Previous Rx's ?Medication ?Instructions ?Recorded aspirin 81 mg tablet,delayed 81 mg PO DAILY 30 days #30 tabs 11/30/23 release atorvastatin 40 mg tablet 40 mg PO HS 30 days #30 tabs 11/30/23 clopidogrel 75 mg tablet 75 mg PO DAILY 30 days #30 tabs 11/30/23 ferrous sulfate 325 mg (65 mg 325 mg PO BID 30 days #60 tabs 11/30/23 iron) tablet polyethylene glycol 3350 17 gram 17 g PO DAILY 30 days #30 ea 11/30/23 oral powder packet (HealthyLax) sulfamethoxazole 800 1 tab PO BID 7 days #14 tabs 11/30/23 mg-trimethoprim 160 mg tablet (Bactrim DS) nitrofurantoin 100 mg PO BID 5 days #10 caps 01/29/24 monohydrate/macrocrystals 100 mg capsule Allergies Allergy/AdvReac Type Severity Reaction Status Date / Time celecoxib (From CELEBREX) Allergy Unknown Unknown Verified 12/05/23 10:01 allergy reaction hydrocodone (From VICODIN) Allergy Unknown Unknown Verified 12/05/23 10:01 allergy reaction oxycodone (OXYCODONE) Allergy Unknown Unknown Verified 12/05/23 10:01 allergy reaction tramadol (From ULTRAM) Allergy Unknown Unknown Verified 12/05/23 10:01 allergy reaction Iodinated Contrast Media AdvReac Intermediate ITCHING Verified 12/05/23 10:01 (IODINATED CONTRAST MEDIA - ORAL AND) [facility] Disclaimer: The information contained in this section may have been updated after the patient was seen, as this information can be updated by other users. Medical History Sciatica On amiodarone therapy Polyp of corpus uteri Abnormal abdominal CT scan Chest pain Postmenopausal bleeding Arthritis of knee, right Endometrial cells on cervical Pap smear inconsistent w/LMP Endometrial thickening on ultrasound Abnormal EKG Lymphedema (HFpEF) heart failure with preserved ejection fraction Paroxysmal atrial fibrillation Profound hearing loss of left ear Right SNHL Hearing loss, bilateral Otalgia Uterine leiomyoma Coronary artery disease History of left heart catheterization Arthritis Migraine History of gastroesophageal reflux (GERD) Gallbladder disease Congestive heart failure History of pacemaker Arrhythmia Left femoral shaft fracture Arthritis of left knee Arthritis of knee, right Allergic reaction Diabetes Reflux esophagitis Atypical chest pain Cervical disc disease Angina pectoris Dyspnea Contusion of right lower leg Adnexal cyst Lumbar facet arthropathy Lumbar spondylosis Sacroiliitis Hiatal hernia Cholelithiasis Infection due to ESBL-producing Escherichia coli UTI (urinary tract infection) Hypotension Hypokalemia Hyperglycemia Acute bronchitis Chest pain HHD (hypertensive heart disease) HLD (hyperlipidemia) HTN (hypertension) Tachycardia Atrial fibrillation Edema of lower extremity Atrial flutter Coronary arteriosclerosis Surgical History H/O arthroscopy of right knee Hx laparoscopic cholecystectomy Cardiac pacemaker in situ Family History Other No significant family history Social History Smoking Status: Never smoker alcohol intake: never counseling provided: none substance use type: denies use current occupational status: disabled Travel in the last 8 weeks: None caregiver/support person: Yes household members: other housing: assisted living facility lives independently: No marital status: single number of children: 0 current occupational exposures/hazards: No caffeine: No special enio needs: No agree to transfusion: No do you feel safe at home: Yes victim of physical abuse: No victim of emotional abuse: No victim of sexual abuse: No would you like helpful sources: No Have you lived/traveled outside [place] in past 30 days?: No Contact w/someone who lives/traveled outside US past 30 days?: No Exposure to someone with infectious disease in past 14 days?: No Do you have a fever (greater than 100.4 F or 38 C)?: No Have you tested positive for COVID-19: No Exposed to someone with COVID-19 in past 14 days?: No Do you have a sore throat?: No Do you have a cough?: No Do you have any weakness?: No Do you have any diarrhea?: No Are you experiencing any unusual bleeding?: No Do you have any muscle aches/pain?: No Do you have any abdominal pain?: No Are you experiencing loss of taste or smell?: No Other Medical History Have you received the Flu Vaccine for this season: No Have you received the Pneumonia Vaccine: No ROS Obtained: Yes All systems reviewed & no additional complaints except as documented Physical Exam General General appearance: alert and in no apparent distress Head Head exam: atraumatic and normocephalic Eye Eye exam: Present normal appearance, PERRL and EOMI ENT ENT exam: Present normal exam, normal oropharynx, mucous membranes moist and normal external ear exam Neck Neck exam: Present normal inspection, full ROM and trachea midline; Absent tenderness Chest Chest inspection: Present normal inspection and symmetric chest wall rise; Absent tenderness Respiratory Respiratory exam: Present normal lung sounds bilaterally; Absent respiratory distress, wheezes, stridor or accessory muscle use Cardiovascular Cardiovascular exam: Present regular rate and normal rhythm Abdominal Exam Abdominal exam: Present soft; Absent distention, tenderness or guarding Extremities Exam Extremities exam: Present full ROM, normal capillary refill, edema (Bilateral lower extremity lymphedema. No redness, warmth, tenderness, or discoloration to the right lower extremity.) and other (Pulses intact distally); Absent tenderness Back Exam Back exam: Present normal inspection and full ROM; Absent tenderness Neurological Exam Neurological exam: Present alert, oriented X3 and CN II-XII intact; Absent motor sensory deficit Psychiatric Psychiatric exam: Present normal affect and normal mood Skin Skin exam: Present warm and dry Medical Decision Making Medical Records Medical records reviewed: Yes I reviewed the patient's medical records. Screening: Per USPSTF and CDC recommendations, given the prevalence of disease in our region, it is our hospital?s policy to screen for HIV and viral Hepatitis for all patients aged 18 and over and those with ongoing risk factors. [place] Inquiry Pt receiving controlled substance: No Vital Signs: 02/27/24 21:41 02/27/24 22:00 02/27/24 22:51 Temperature 98.4 F 97.8 F Temperature Source Oral Pulse Rate 72 87 Pulse Rate [Right] 70 Respiratory Rate 20 20 Blood Pressure 123/66 136/85 Blood Pressure [Right Arm] 119/73 Blood Pressure Mean 85 Blood Pressure Mean [Right Arm] 88 02 Sat by Pulse Oximetry 99 98 Oxygen Delivery Method Room Air Room Air Lab Data Lab results reviewed: Yes I reviewed the patient's lab results. Medical Decision Narrative: In summary, this patient is a 64-year-old female presenting to the Emergency Department for evaluation of leg swelling in the setting of lymphedema. Differential diagnoses considered include but are not limited to lymphedema, cellulitis, DVT, arterial insufficiency. Ruling out the most morbid conditions drove assessment. It should be noted patient's history includes CHF, atrial fibrillation on Eliquis, hypertension, hyperlipidemia which may or may not be at goal therapy. This complicates all aspects of care by increasing patient's risk for morbidity. I reviewed patient's past medical records and noted previous evaluations for various complaints, including previous evaluations by cardiology in November as well as in the emergency department in January. On exam, the patient is lying in bed in no acute distress. She has lymphedema present in the bilateral lower extremities with no redness, warmth, skin color changes. She is neurovascularly intact distally with great pulses. She has no calf pain or tenderness no acute concerns or complaints, only stating that her lymphedema has been slowly worsening since she has not been following in lymphedema clinic. I advised it is very important to follow-up in clinic with them. At this time, I do not think that she has any acute emergent life- threatening pathology warranting lab or imaging evaluation. I feel she is appropriate for discharge back to [facility] with strict return precautions. Critical Care Critical Care Time Critical Care Time: No
== END 2024-02-27 22:52 | disposition other institution (70) ==
PROVIDERS: Emergency Provider Emergency Medicine; PCP Nurse Practitioner Family
DX: I89.0 Lymphedema, not elsewhere classified (principal); R22.41 Localized swelling, mass and lump, right lower limb
CPT/HCPCS: 99282

== ENCOUNTER 2024-05-12 13:18 | Outpatient (CLI) | payer MEDICARE, OTHER, SELFPAY ==
--- NOTE | 2024-05-12 13:21 | XR_ITS ---
FINAL REPORT CLINICAL HISTORY: lt shoulder pain x 2years COMPARISON: None FINDINGS: Two views of the left shoulder show no evidence of acute displaced fracture or dislocation of the visualized bony architecture. There are severe degenerative changes of the glenohumeral joint. The acromioclavicular joint is intact. IMPRESSION: Severe glenohumeral degenerative change. Reviewed, Interpreted and Dictated by Terry Bonilla MD Transcribed by Elvira Chris Authenticated and [facility]
--- NOTE | 2024-05-12 13:21 | XR_ITS ---
FINAL REPORT CLINICAL HISTORY: lt hand pain x 2years COMPARISON: None FINDINGS: Three views of the left hand show a nondisplaced fracture of the distal ulna, probably late subacute healing fracture. No definite radial fracture identified. There is generalized osteopenia. Moderate degenerative changes are noted of the interphalangeal joints. IMPRESSION: No acute fracture. Late subacute or even chronic fracture of distal ulna without displacement. Reviewed, Interpreted and Dictated by Terry Bonilla MD Transcribed by Elvira Chris Authenticated and [facility]
== END 2024-05-12 23:59 | disposition home or self-care (01) ==
LOC: RAD 13:19
PROVIDERS: PCP Nurse Practitioner Family; Visit Provider Physician Assistant
DX: M79.602 Pain in left arm (principal); M79.642 Pain in left hand
CPT/HCPCS: 73030; 73130

== ENCOUNTER 2024-08-20 13:09 | Outpatient (CLI) | payer MEDICARE, OTHER, SELFPAY ==
--- OUTSIDE RECORDS SUMMARY | 2024-08-20 13:11 | XMS_ITS | Clinical Summary ---
Author Organization [facility] Address [address] [place] [address] Phone Care Team Providers Care Cartridge Filler Name Role Phone Juaquin Pepper Primary Care Physician [phone] Conditions or Problems Problem Name Problem Code Onset Date Status Entry Date Provider Comment Standard Description Annotate Other lymphedema I89.0 (ICD-10-CM) Active 10/19 Juaquin Evgeny Lymphedema, not elsewhere classified SCABIES 905193915 (SNOMED CT) Inactive 07/27 Juaquin Evgeny Infestation by Sarcoptes scabiei oleksandr hominis ACUTE SINUSITIS, UNSPECIFIED 27519448 (SNOMED CT) Inactive 05/25 Juaquin Evgeny Acute sinusitis UNSTEADY GAIT 323894395 (SNOMED CT) Active 04/23 Juaquin Pepper Unsteady gait ACCIDENTAL FALL 124005315 (SNOMED CT) Active 04/23 Juaquin Evgeny Accidental fall KNEE PAIN, BILATERAL 03345916 (SNOMED CT) Active 04/23 Juaquin Evgeny Knee pain BACK STRAIN 714951890 (SNOMED CT) Inactive 04/23 Juaquin Evgeny Strain of back muscle Medications Medication Instructions Start Date Stop Date Generic Name ND Provider PERMETHRIN 5 % CREA APPLY TO BODY THEN RINSE AFTER 8-12 HOURS. REPEAT IN 1 WEEK NEEDED 08/10 PERMETHRIN [id number] Juaquin Pepper HYDROXYZINE HCL 25 MG TABS TAKE 1 BY MOUTH EVERY 6 HOURS NEEDED FOR ITCHING HYDROXYZINE HCL 04751343653 Juaquin Pepper SALINE NASAL SPRAY 0.65 % SOLN 2 SPRAYS EACH NOSTRIL EVERY 2 HOURS NEEDED FOR CONGESTION SALINE [id number] Juaquin Pepper CETIRIZINE HCL 10 MG TABS 1 BY MOUTH EACH DAY CETIRIZINE HCL [id number] Juaquin Pepper AMOXICILLIN 500 MG CAPS TAKE 1 CAPSULE BY MOUTH 3 TIMES A DAY 2014/0 06/04 AMOXICILLIN [id number] Juaquin Pepper WALKER use as directed MISC. DEVICES [id number] Juaquin Pepper CYCLOBENZAPRINE HCL 10 MG TABS TAKE 1 BY MOUTH 3 TIMES A DAY NEEDED FOR PAIN CYCLOBENZAPRINE HCL 31120642277 Juaquin Pepper METANX 3-90.314-2-35 MG CAPS Take one everyday [id number] Priya Sholler [employer]OV[employer]UAL LIBRARIAN BUSPIRONE HCL 10 MG TABS Take one as needed for anxiety BUSPIRONE HCL 83915525414 Priya Sholler AUD[employer]OVISUAL LIBRARIAN FERROUS SULFATE 325 (65 Fe) MG TABS Take two everyday FERROUS SULFATE [id number] Priya Bobller [employer]UAL [employer]RARIAN CYMBALTA 60 MG CPEP Take one everyday DULOXETINE HCL [id number] Juaquin Pepper Medications Administered No information available. Allergies, Adverse Reactions, Alerts Allergy Name Reaction Description Start Date Severity Statu s Provider CELEBREX Critical Active Priya Sh juan [employer] OXYCODONE Critical Active Priya Sh juan [employer]IAN ULTRAM Critical Active Priya Sh juan [employer]RARIAN Results No information available. Plan of Care Type Date Detail Referral General Surgery Referral Shwetha Mott, [address], [place], [address] Referral General Surgery Referral Shwetha Mott, [address], [place], [address] Referral excluded fr om report: Referral Walker Referral Marlon *NONE Referral excluded fr om report: Procedures No information available. Vital Signs Date Name Value Unit Description BMI (Body Mass Index) 32.05 kg/m2 Bod y Mass Index (Ratio) Body Temperature 98.6 [degF] temperat ure E&M Body Temperature 37 Brigida temperat ure in centigrade E&M BP Diastolic 84 mm[Hg] blood pressu re, diastolic BP Systolic 152 mm[Hg] blood pressur e, systolic Heart Rate 76 /min pulse rate Height 154.94 cm height in cent imeters E&M Height 61 [in_us] height E&M Weight Measured 169 [lb_av] weight E& M Weight Measured 169 [lb_av] weight E& M Weight Measured 76.82 kg weight in kilograms E&M Respiratory Rate 24 /min respirat ory rate E&M Immunizations No information available. Advance Directives No information available.
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
--- OUTSIDE RECORDS SUMMARY | 2024-08-20 13:12 | XMS_ITS | Clinical Summary ---
Author Organization [facility] Address [address] [place] [address] Care Team Providers Care Import Export Manager Name Role Phone Didier Bueno MD Primary Care Provider [phone] Allergies Active Allergy Reactions Criticality Noted Date Comments Celecoxib Itching,Rash,Unknown - Patient states they do not know rxn details Medium 08/06/2011 Hydrocodone Rash Low 12/16/2015 Hydrocodone-Acetaminoph en Unknown - Patient states they do not know rxn details Low 02/15/2011 Iodinated Contrast Media Itching,Unknown - Patient states they do not know rxn details Medium 02/22/2021 Iv Contrast Hives Medium 12/19/[address] contrast gave her hives in Oxycodone Itching,Rash,Unknown - Patient states they do not know rxn details Medium 10/31/2010 Tramadol Rash,Unknown - Patient states they do not know rxn details Low 12/16/2015 RASH RASH RASH RASH Medications Blood Glucose Monitoring Suppl (Blood Glucose Monitor System) w/Device kit USE DIRECTED DX Code E 11.07/17/2018 Active Glucose Blood (BLOOD GLUCOSE TEST ) Use to check blood glucose once a day Dx E 11.07/17/2018 Active DULOXETINE HCL PO Take 90 mg by mouth 1 (one) time each day. Active acetaminophen (Tylenol) 500 MG tablet Take 500 mg by mouth. Active apixaban (Eliquis) 5 MG tablet Take 5 mg by mouth twice a day. 01/03/2016 Active Eliquis 5 MG tablet 03/14/2021 Active atorvastatin (Lipitor) 10 MG tablet Take 10 mg by mouth 1 (one) time each day. 07/09/2019 Active clindamycin (Cleocin) 300 MG capsule 09/26/2020 Active dilTIAZem ER (Tiazac) 360 MG 24 hr capsule 01/18/2021 Activ e DULoxetine (Cymbalta) [address] capsule 02/13/2018 Activ e metFORMIN (Glucophage) 500 MG tablet Take 1,000 mg by mouth twice a day. 05/06/2018 Active ondansetron (Zofran) 4 MG tablet 05/25/2020 Active OXcarbazepine (Trileptal) 300 MG tablet Take 300 mg by mouth twice a day. Active spironolactone (Aldactone) 25 MG tablet Take 25 mg by mouth 1 (one) time each day. 07/09/2019 Active nortriptyline (Pamelor) 10 MG capsule Take 10 mg by mouth 1 (one) time each day. 07/09/2019 Active hydrOXYzine pamoate (Vistaril) 25 MG capsule 05/25/2020 Active loperamide (Imodium) 2 MG capsule Take 2 mg by mouth. Active Active Problems Problem Noted Date Diagnosed Date Severe obesity (BMI 35.0-39.9) with comorbidity 05/24/2021 Immunizations Immunization Administration Dates Next Due Influenza, injectable, quadrivalent, preservativ e free 12/27/2015 Pneumococcal Polysaccharide PPV23 12/27/2015 Family History Medical History Relation Name Comments Diabetes Father Other cancer Mother Diabetes Other Relation Name Status Comments Father Mother Other Social History Tobacco Use Types Packs/Day Years Used Date Smoking Tobacco: Never Smokeless Tobacco: Never Alcohol Use Standard Drinks/Week Comments No 0 (1 standard drink = 0.6 oz pur e alcohol) Comments Unknown Sex and Gender Information Value Date Recorded Sex Assigned at Not on file Legal Sex Female 7:44 PM EDT Gender Identity Not on file Sexual Orientation Not on file Last Filed Vital Signs Vital Sign Reading Time Taken Comments Blood Pressure 114/74 05/24/2021 2:24 PM EDT Pulse 70 05/24/2021 2:24 PM EDT Temperature 36.9 C (98.5 F) 05/24/2021 2:24 PM EDT Respiratory Rate - - Oxygen Saturation 97% 05/24/2021 2:24 PM EDT Inhaled Oxygen Concentration - - Weight 87.1 kg (192 lb) 05/24/2021 2:24 PM EDT Height 157.5 cm (5' 2 ) 05/24/2021 2:24 PM EDT Body Mass Index 35.12 05/24/2021 2:24 PM EDT Plan of Treatment Health Maintenance Due Date Last Done Comments [facility]-Depression Screening 1960 [facility]-Infant/Child/Adol SDOH Screenings 1960 [facility]- SDOH Screenings 02/26/1978 [facility]-Adult SDOH Screenings 02/26/1978 [facility]-Pap Smear 02/26/1981 [facility]-Cervical Cancer Screening 02/26/1990 [facility]-HPV/Cotest 02/26/1990 CT Colonography 02/26/2005 Colonoscopy 02/26/2005 FIT-DNA 02/26/2005 FIT 02/26/2005 FOBT 02/26/2005 Sigmoidoscopy 02/26/2005 [facility]-Colorectal Cancer Screening 02/26/2005 [facility]-Zoster Vaccines (1 of 2) 02/26/2010 [facility]-DTaP,Tdap,and Td Vaccines (3 - Td or Tdap) 01/20/2020 01/19/2010, 09/12/2007, 05/13/1999 [id number] Vaccine ( season) 2023 11/29/2021, 12/12/2020, 03/12/2020, Additional history exists [facility]-Influenza Vaccine (#1) 10/12/202412/13, 12/30/2018, 12/17/2017, Additional history exists [facility]-RSV Vaccine: 60+ Years or (1 - 1-dose 75+ series) 02/26/2035 [facility]-Breast Cancer Screening Discontinued 09/10/2012, 0 08/29/2011 [facility]-Pneumococcal Vaccine: 50+ Years Completed 12/27/2015, 07/22/2014, 02/11/2010 HPV Vaccines Aged Out No longer eligi ble based on patient's age to complete this topic [facility]-HIB Vaccines Aged Out No longer e ligible based on patient's age to complete this topic [facility]-Hepatitis A Vaccines Aged Out No longer eligible based on patient's age to complete this topic [facility]-IPV Vaccines Aged Out No longer e ligible based on patient's age to complete this topic [facility]-Rotavirus Vaccines Aged Out No lo nger eligible based on patient's age to complete this topic Insurance MEDICARE Member Subscriber Plan / Payer (Ef fective 2013-Present) Name:Jaci Steiner Member ID:[id number] Relation to Subscriber:Self Name:Jaci Steiner Subscriber ID:[id number] Payer ID:MEDICARE Group ID:Not on file Type:Medicare Address: [address] Care Teams Import Export Manager Relationship Specialty Start Date End Date Didier Bueno MD [address] [place] [address] PCP - General 06/24/20
--- NOTE | 2024-08-20 13:30 | MM_ITS ---
PROCEDURE INFORMATION: Exam: MG Bilateral Screening 3D Mammography Exam date and time: 08/20/2024 1:14 PM Age: 64 years old Clinical indication: Screening mammogram; causing her not to be able to lean into machine. TECHNIQUE: Imaging protocol: Bilateral Screening tomosynthesis and 2D mammography including computer-aided detection (CAD) when performed. Limited assessment due to difficulty positioning the patient. The patient is in a wheelchair COMPARISON: 1. MG MM DIG SCREENING MAMM BI W/CAD 02/05/2023 12:24 PM 2. MG MM DIG SCREENING MAMM BI W/CAD 12/15/2021 7:57 AM 3. MG MM DIG SCREENING MAMM BI W/CAD 12/18/2019 11:10 AM 4. MG MM DIG SCREENING MAMM BI W/CAD 01/30/2019 9:19 AM FINDINGS: MAMMOGRAPHY: Breast composition: There are scattered areas of fibroglandular density. Mass: None. Architectural distortion: No new or suspicious architectural distortion. Calcifications: No new or suspicious calcifications are present Asymmetric density: No new or suspicious asymmetric density is present Skin thickening: None. Axillary adenopathy: None. IMPRESSION: No mammographic evidence of malignancy. Recommend annual screening mammography unless otherwise clinically indicated. ASSESSMENT: BI-RADS category 1: Negative.
== END 2024-08-20 23:59 | disposition home or self-care (01) ==
LOC: RAD 13:10
PROVIDERS: PCP Nurse Practitioner Family; Visit Provider Obstetrics & Gynecology
DX: Z12.31 Encounter for screening mammogram for malignant neoplasm of breast (principal); R92.323 Mammographic fibroglandular density, bilateral breasts
CPT/HCPCS: 77063; 77067

== ENCOUNTER 2024-11-02 14:03 | Outpatient (RCR) | payer MEDICARE, OTHER, SELFPAY ==
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
== END 2024-11-02 23:59 | disposition home or self-care (01) ==
LOC: PT 14:03
PROVIDERS: Visit Provider Physician Assistant
DX: I89.0 Lymphedema, not elsewhere classified (principal)
CPT/HCPCS: 97140; 97163

== ENCOUNTER 2024-11-24 13:02 | Outpatient (RCR) | payer MEDICARE, OTHER, SELFPAY | END 2024-11-24 23:59 | disposition home or self-care (01) | LOC: PT 13:02 | PROVIDERS: Visit Provider Physician Assistant | DX: I89.0 Lymphedema, not elsewhere classified (principal) | CPT/HCPCS: 97140 ==

== ENCOUNTER 2024-12-04 00:34 | Emergency (ER) | payer MEDICARE, OTHER, SELFPAY ==
[2024-12-04] VITALS (15 sets, daily range): BP systolic 101–145; BP diastolic 69–82; PULSE 67–74; RESP 16; TEMP 36.9; O2SAT 95–99; BMI 32.9
--- NOTE | 2024-12-04 00:37 | XR_ITS ---
PROCEDURE INFORMATION: Exam: XR Chest Exam date and time: 12/04/2024 12:57 AM Age: 64 years old Clinical indication: Injury or trauma; Fall TECHNIQUE: Imaging protocol: Radiologic exam of the chest. Views: 1 view. COMPARISON: CT ANGIO CHEST 01/29/2024 3:23 PM FINDINGS: Tubes, catheters and devices: A dual lead pacing device enters from the right. Lungs: Lung volumes are low. No consolidation. No mass. Pleural spaces: Unremarkable. No pleural effusion. No pneumothorax. Heart/Mediastinum: The heart is top-normal in size. A large hiatal hernia is noted projecting over the right heart border. Vasculature: Unremarkable. Bones/joints: Unremarkable. Degenerative changes of both glenohumeral joints, left greater than right. No acute fracture. IMPRESSION: 1. No acute findings. Low lung volumes. 2. Large hiatal hernia.
--- NOTE | 2024-12-04 00:37 | XR_ITS ---
PROCEDURE INFORMATION: Exam: XR Left Shoulder Exam date and time: 12/04/2024 12:57 AM Age: 64 years old Clinical indication: Pain; Shoulder; Left; Additional info: Fall left shoulder pain TECHNIQUE: Imaging protocol: Radiologic exam of the left shoulder. Views: 2 or more views. COMPARISON: CR XR SHOULDER LT MIN 2V 05/12/2024 1:39 PM FINDINGS: Bones/joints: The glenohumeral and AC joints are intact. There are severe degenerative changes of the glenohumeral joint. No acute fracture. The subacromial space is preserved. Soft tissues: Normal. IMPRESSION: No acute findings.
--- NOTE | 2024-12-04 00:37 | XR_ITS ---
PROCEDURE INFORMATION: Exam: XR Pelvis Exam date and time: 12/04/2024 12:57 AM Age: 64 years old Clinical indication: Pelvic pain; Additional info: Fall TECHNIQUE: Imaging protocol: Radiologic exam of the pelvis. Views: 1 or 2 view. COMPARISON: CT ABDOMEN PELVIS W CON 04/09/2022 1:43 AM FINDINGS: Bones/joints: The pelvis and proximal femurs are intact. No acute fracture. Soft tissues: Unremarkable. Organs: Calcified uterine fibroid disease is noted. Vasculature: Calcific atherosclerotic disease of both common femoral arteries. IMPRESSION: No acute findings.
--- NOTE | 2024-12-04 00:37 | XR_ITS ---
PROCEDURE INFORMATION: Exam: XR Left Humerus Exam date and time: 12/04/2024 12:57 AM Age: 64 years old Clinical indication: Pain; Upper arm; Left; Additional info: Fall left arm pain TECHNIQUE: Imaging protocol: Radiologic exam of the left humerus. Views: 2 or more views. COMPARISON: CR XR SHOULDER LT MIN 2V 05/12/2024 1:39 PM FINDINGS: Bones/joints: The humerus is intact. No acute fracture. Significant degenerative changes of the glenohumeral joint are noted. Soft tissues: Normal. IMPRESSION: No acute findings.
--- NOTE | 2024-12-04 00:37 | CT_ITS ---
PROCEDURE INFORMATION: Exam: CT Head Without Contrast Exam date and time: 12/04/2024 1:11 AM Age: 64 years old Clinical indication: Injury or trauma; Fall; Additional info: Fall on blood thinners TECHNIQUE: Imaging protocol: Computed tomography of the head without contrast. Radiation optimization: All CT scans at this facility use at least one of these dose optimization techniques: automated exposure control; mA and/or kV adjustment per patient size (includes targeted exams where dose is matched to clinical indication); or iterative reconstruction. COMPARISON: CT CERVICAL SPINE WO CON 02/24/2019 2:49 AM FINDINGS: Brain: There is age related atrophy. No hemorrhage. There is mild periventricular white matter hypodensity consistent with chronic small vessel disease. No mass effect. Cerebral ventricles: No ventriculomegaly. Paranasal sinuses: There is complete opacification of the maxillary sinuses. Diffuse ossification of the anterior ethmoid air cells is present as well. Mastoid air cells: Visualized mastoid air cells are well aerated. Orbital cavities: There has been bilateral lens extraction. Bones: There are degenerative changes of the right temporomandibular joint with deformity of the condyle. Soft tissues: Unremarkable. IMPRESSION: No acute intracranial abnormality.
--- NOTE | 2024-12-04 00:37 | CT_ITS ---
PROCEDURE INFORMATION: Exam: CT Cervical Spine Without Contrast Exam date and time: 12/04/2024 1:13 AM Age: 64 years old Clinical indication: Injury or trauma; Fall TECHNIQUE: Imaging protocol: Computed tomography of the cervical spine without contrast. Radiation optimization: All CT scans at this facility use at least one of these dose optimization techniques: automated exposure control; mA and/or kV adjustment per patient size (includes targeted exams where dose is matched to clinical indication); or iterative reconstruction. COMPARISON: CT CERVICAL SPINE WO CON 02/24/2019 2:49 AM FINDINGS: Bones: No acute fracture. Normal alignment. There is severe degenerative disc disease from C3 through C7. Stable subtle anterolisthesis is noted at C7-T1 and T1-2. There is diffuse [id number]-[id number] facet arthropathy. No significant disc bulge or herniation. No severe spinal canal stenosis. No significant neural foraminal narrowing. Lungs: Lung apices are normal. Soft tissues: Unremarkable. IMPRESSION: No acute cervical spine fracture.
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
[2024-12-04] MEDS: ACETAMINOPHEN 500MG TAB 1000 MG PO (00:52)
--- OUTSIDE RECORDS SUMMARY | 2024-12-04 01:29 | XMS_ITS | Clinical Summary ---
Author Organization [employer] [facility] Address [address] [place] [address] Phone Care Team Providers Care Cleaning Manager Name Role Phone Juaquin Pepper Primary Care Physician [phone] Conditions or Problems Problem Name Problem Code Onset Date Status Entry Date Provider Comment Standard Description Annotate Other lymphedema I89.0 (ICD-10-CM) Active 10/19 Juaquin Evgeny Lymphedema, not elsewhere classified SCABIES 457365911 (SNOMED CT) Inactive 07/27 Juaquin Evgeny Infestation by Sarcoptes scabiei oleksandr hominis ACUTE SINUSITIS, UNSPECIFIED 69382314 (SNOMED CT) Inactive 05/25 Juaquin Evgeny Acute sinusitis UNSTEADY GAIT 104313875 (SNOMED CT) Active 04/23 Juaquin Pepper Unsteady gait ACCIDENTAL FALL 111503264 (SNOMED CT) Active 04/23 Juaquin Evgeny Accidental fall KNEE PAIN, BILATERAL 69967380 (SNOMED CT) Active 04/23 Juaquin Evgeny Knee pain BACK STRAIN 214025177 (SNOMED CT) Inactive 04/23 Juaquin Evgeny Strain of back muscle Medications Medication Instructions Start Date Stop Date Generic Name ND Provider PERMETHRIN 5 % CREA APPLY TO BODY THEN RINSE AFTER 8-12 HOURS. REPEAT IN 1 WEEK NEEDED 08/10 PERMETHRIN [id number] Juaquin Pepper HYDROXYZINE HCL 25 MG TABS TAKE 1 BY MOUTH EVERY 6 HOURS NEEDED FOR ITCHING HYDROXYZINE HCL 17626479784 Juaquin Pepper SALINE NASAL SPRAY 0.65 % SOLN 2 SPRAYS EACH NOSTRIL EVERY 2 HOURS NEEDED FOR CONGESTION SALINE 72316697165 Juaquin Pepper CETIRIZINE HCL 10 MG TABS 1 BY MOUTH EACH DAY CETIRIZINE HCL 06948467651 Juaquin Pepper AMOXICILLIN 500 MG CAPS TAKE 1 CAPSULE BY MOUTH 3 TIMES A DAY 2014/0 06/04 AMOXICILLIN [id number] Juaquin Pepper WALKER use as directed MISC. DEVICES 80720583978 Juaquin Pepper CYCLOBENZAPRINE HCL 10 MG TABS TAKE 1 BY MOUTH 3 TIMES A DAY NEEDED FOR PAIN CYCLOBENZAPRINE HCL 73855871883 Juaquin Pepper METANX 3-90.314-2-35 MG CAPS Take one everyday [id number] Priya Bobller SHOVEL OILER BUSPIRONE HCL 10 MG TABS Take one as needed for anxiety BUSPIRONE HCL 68508976019 Priya Sholler SHOVEL OILER FERROUS SULFATE 325 (65 Fe) MG TABS Take two everyday FERROUS SULFATE 58095875547 Priya Gutierrezer SHOVEL OILER CYMBALTA 60 MG ORAL CAPSULE DELAYED RELEASE PARTICLES Take one everyday DULOXETINE HCL 38719470125 Juaquin Pepper Medications Administered No information available. Allergies, Adverse Reactions, Alerts Allergy Name Reaction Description Start Date Severity Statu s Provider CELEBREX Critical Active Priya Sh juan SHOVEL OILER OXYCODONE Critical Active Priya Sh juan SHOVEL OILER ULTRAM Critical Active Priya Sh juan SHOVEL OILER Results No information available. Plan of Care Type Date Detail Referral General Surgery Referral Shwetha Mott, [address], [place], [address] Referral General Surgery Referral Shwetha Mott, [address], [place], [address] Referral excluded fr om report: Referral Marlon Referral Marlon *NONE Referral excluded fr om [...]
--- OUTSIDE RECORDS SUMMARY | 2024-12-04 01:30 | XMS_ITS | Clinical Summary ---
Author Organization [facility] Address [address] [place] [address] Care Team Providers Care Pastry Chef Name Role Phone Didier Bueno MD Primary Care Provider [phone] Allergies Active Allergy Reactions Criticality Noted Date [...] Td or Tdap) 01/20/2020 01/19/2010, 09/12/2007, 05/13/1999 [id number] Vaccine ( season) 2024 11/29/2021, 12/12/2020, 03/12/2020, Additional history exists [facility]-Influenza [...] Payer (Ef fective 2013-Present) Name:Jaci Steiner Member ID:[id number] Relation to Subscriber:Self Name:Jaci Steiner Subscriber ID:[id number] Payer ID:[id number] Group ID:Not on file Type:Medicare Address: [address] Care Teams Pastry Chef Relationship Specialty Start Date End Date Didier Bueno MD [address] [place] [address] PCP - General 06/24/20
--- NOTE | 2024-12-04 08:27 | PC.NURSE ---
Yessy at the [facility] was called for transport back to [place]. She is going to call the facility to see if they will assist in getting her out of the van. Yessy is going to return my call.
--- NOTE | 2024-12-04 08:30 | PC.NURSE ---
Yessy from the [facility] states they will be here in approximately ten minutes.
== END 2024-12-04 08:46 | disposition other institution (70) ==
PROVIDERS: Emergency Provider Emergency Medicine
DX: M25.512 Pain in left shoulder (principal); W18.2XXA Fall in (into) shower or empty bathtub, initial encounter
CPT/HCPCS: 70450; 71045; 72125; 72170; 73030; 73060; 99285